=== PATIENT | male | born 1945 | race African-American/Black ===

== ENCOUNTER 2017-02-19 10:15 | Inpatient (IN) ==
[2017-02-19] MEDS ORDERED: PROPOFOL 200 MG/20 ML VIAL IV STA (10:20)
[2017-02-19] MEDS ORDERED: PROPOFOL 1,000 MG/100 ML BOTTLE IV ONE (10:21)
[2017-02-19] MEDS ORDERED: methylPREDNISolone SOD SUC 125 MG/2 ML VIAL IV STA (10:40)
--- NOTE | 2017-02-19 10:41 | Emergency Department Note ---
Pedro Jo Kasabria, am scribing for, and in the presence of, Fantasma Mittal MD 10 :31. Daxa Jo James D, MD, personally performed the services described in this documentation, ascribed by Bryant Vasquez in my presence, and it is both accurate and complete . Arrival - Arrival Chief Complaint: Shortness of Breath Stated Complaint: RESPIRATORY DISTRESS ED Nursing Triage Note: REPORTS RESPIRATORY DISTRESS AT HOME AND BECAME UNRESPONSIVE WHEN EMS ARRIVED. PT WITH HX OF ASTHMA. PT WAS INTUBATED AT [facility] Mode of Arrival: Stretcher Limitations: No Limitations Source: Patient, RN Notes Reviewed Time Seen by Provider: 02/19/17 10:20 - History of Present Illness HPI Narrative: This is a 71 y/o black male presenting to the ED s/p respiratory distress that onset while at home. EMS states they found the pt on his front porch unresponsive. Pt has a PMHx of asthma. He was intubated at [facility]. HPI is limited due to endotracheal tube. Consistency: constant Severity: moderate Allergies/Adverse Reactions: Allergies Allergy/AdvReac Type Severity Reaction Status Date / Time No Known Allergies Allergy Verified 01/18/16 10:14 Home Medications: Home Medications Medication Instructions Recorded Confirmed Type Aspirin [Ecotrin] 81 mg PO DAILY 12/19/15 12/12/16 History Etodolac 300 mg PO BID PRN 12/19/15 12/18/16 History Latanoprost [Latanoprost 0.005 % 1 drop BOTH EYES BEDTIME 12/19/15 12/12/16 History Oph Soln] Lisinopril 40 mg PO DAILY 12/19/15 12/12/16 History Meclizine [Antivert] 25 mg PO DAILY 12/19/15 12/12/16 History Metoprolol Succinate 25 mg PO DAILY 12/19/15 12/12/16 History Pioglitazone HCl [Actos] 30 mg PO DAILY 12/19/15 12/12/16 History clonazePAM [Clonazepam] 0.5 mg PO BID 12/19/15 12/12/16 History hydroCHLOROthiazide 25 mg PO DAILY 12/19/15 12/18/16 History [Hydrochlorothiazide] metFORMIN [Glucophage] 500 mg PO BID W/MEALS 12/19/15 12/12/16 History Tramadol HCl [Tramadol Tab] 50 mg PO Q6H PRN 01/18/16 12/18/16 History Alfuzosin [Uroxatral] 10 mg PO DAILY 12/12/16 12/12/16 History amLODIPine [Norvasc] 10 mg PO DAILY 12/12/16 12/12/16 History glipiZIDE [Glipizide] 10 mg PO BID 12/12/16 12/12/16 History Albuterol Neb [Proventil Neb] 1.25 mg RESP TX Q4H PRN 12/18/16 12/18/16 History Esomeprazole Magnesium [Nexium] 40 mg PO DAILY 12/18/16 12/18/16 History Review of System - Review of System ROS unobtainable: due to endotracheal tube (limited ) 12 point system: reviewed and no additional remarkable complaints except as stated - Review of System Constitutional: Absent: fever Respiratory: Absent: cough Gastrointestinal: Absent: vomiting, diarrhea Skin: Absent: rash Allergic/Immunologic: Absent: facial swelling Medical,Surgical,& Family Hx - Medical History Cardio: History of: Cardiac Dysrhythmia (tachycardia), Hypertension No history of: [place] Psychological: History of: Anxiety Disorders Neurology: History of: Cerebrovascular Accident (2016), Peripheral Neuropathy, Vertigo No history of: Seizures HEENT: History of: Eye Problem (glasses) Endocrine: History of: Diabetes Mellitus (NIDDM) No history of: Thyroid Disorder Respiratory: History of: Asthma, COPD No history of: Obstructive Sleep Apnea Genitourinary: History of: Bladder Problem (freq), Prostate Problems (ca with radiation 2002) No history of: Kidney Stones Gastrointestinal: History of: GERD, Hemorrhoids No history of: Polyps Musculoskeletal: History of: Musculoskeletal Problems (arthritis) Hematology: History of: Clotting Problems (blood clot in right leg) No history of: Blood Transfusion Reaction Other: History of: Cancer (prostate 2002) No history of: Anesthesia Reactions - Surgical History Cardiac Surgeries: Patient Denies: Cardiac Catheterization HEENT Surgeries: Patient denies: Tonsilectomy & Adenoidectomy Abdominal Surgeries: Surgical HX of: Cholecystectomy, Colonoscopy, EGD Patient denies: Appendectomy, Hernia Repair Reproductive Surgeries: Patient denies;: Prostate Surgery Orthopedic Surgeries: Patient denies;: Orthopedic Surgery - Family History Family History: Reports;: Family Cancer (mother-unknown, father-unknown) - Social History Smoking Status: Unknown if ever smoked Frequency of Alcohol Use: Unknown Type of Drug Use: Unknown Exam Vital Signs: Vital Signs Temperature 97.0 F L 02/19/17 10:16 Pulse Rate 123 H 02/19/17 10:16 Respiratory Rate 19 02/19/17 10:16 Blood Pressure 156/79 02/19/17 10:16 O2 Sat by Pulse Oximetry 100 02/19/17 10:16 - General General appearance: in distress (intubated; endotracheal tube ) - Head Head exam: Present: atraumatic, normocephalic, normal inspection - Eye Eye exam: Present: normal appearance, PERRL, EOMI - ENT ENT exam: Present: normal exam, normal oropharynx, mucous membranes moist, TM's normal bilaterally, normal external ear exam - Neck Neck exam: Present: normal inspection, full ROM, trachea midline. Absent: tenderness - Chest Chest inspection: Present: normal inspection, symmetric chest wall rise. Absent : tenderness - Respiratory Respiratory exam: Present: wheezes (expiratory bilaterally ). Absent: normal lung sounds bilaterally - Cardiovascular Cardiovascular exam: Present: regular rate, normal rhythm, normal heart sounds - Abdominal Exam Abdominal exam: Present: soft, normal bowel sounds. Absent: distention, tenderness - Extremities Exam Extremities exam: Present: normal inspection, full ROM, normal capillary refill. Absent: tenderness, pedal edema, calf tenderness - Back Exam Back exam: Present: normal inspection, full ROM. Absent: tenderness - Neurological Exam Neurological exam: Present: CN II-XII intact, reflexes normal. Absent: alert, oriented X3 - Psychiatric Psychiatric exam: Present: other - Skin Skin exam: Present: warm, dry, intact, normal color Course Course Narrative: Vent sedation and vent orders along with vent management begun in the emergency department. - Consultations Consultation #1: Discussed with hospitalist. Patient will be admitted to the ICU. Time: 10:39 Results - Labs Lab Results: I have reviewed the patients labs Labs: Lab performed at [facility] and reviewed by me: Chemistry: Sodium 149, potassium 4.7, chloride 109, CO2 28, BUN 17, creatinine 1.7, glucose 283 BNP 22 CBC: WBCs 13,400, hemoglobin 13.9, hematocrit 43.6, platelet count 136, 000 PT 9.6, PTT 27.0 ABG performed at [facility]: PH 7.017, PCO2 97, PO2 411.7, O2 sat 99.9% - EKG EKG results: interpreted by ERMD - Impressions EKG: Sinus tachycardia with a rate of 111, occasional PVCs, normal axis, nonspecific ST-T wave changes. - Diagnostic Findings Procedure: Chest x-ray: image reviewed by me (Endotracheal tube in position above the jose luis. No infiltrates, no pleural effusions.) Disposition Clinical Impression: Status asthmaticus, Acute respiratory failure, Diabetes mellitus Disposition: Still a Patient Condition: Critical Time of Disposition: 10:40
--- NOTE | 2017-02-19 10:42 | XRay Report ---
XR chest 1V portable Indication: Status asthmaticus Comparison: None Technique: Single frontal view of the chest Findings: Endotracheal tube tip approximately 3.7 cm above the jose luis. Heart size appears within normal limits. Minimal scattered linear perihilar atelectasis. No focal consolidation, pleural effusion, or pneumothorax. Osseous and surrounding soft tissue structures demonstrate no acute abnormality. IMPRESSION: Minimal scattered linear perihilar atelectasis. PROCEDURE INTERPRETED AT [facility] DEPARTMENT OF RADIOLOGY Final Report Signed by: Dr Sunil Wilkins
[2017-02-19] MEDS: PROPOFOL 1,000 MG/100 ML BOTTLE IV SCH ×5 (11:08→23:46)
[2017-02-19 11:46] LABS: ABG Base Excess -1.3 MMOL/L (-2.5-2.5); ABG HCO3 23.4 MMOL/L (20-26); ABG Oxygen Saturation 99.5 % (95-100); ABG PCO2 48.8 MM HG (35-48); ABG PH 7.324 (7.35-7.45); ABG TCO2 22.4 MMOL/L (23-27)
--- NOTE | 2017-02-19 11:53 | Hospitalist History & Physical ---
<Otis Porras - Last Filed: 02/19/17 12:49> Assessment and Plan - Time spent with patient Time spent with patient: Greater than 30 minutes (1) Acute respiratory failure Status: Acute Assessment and plan: Patient intubated in [facility]. Sedated with Propofol. Respiratory acidosis. Admit to ICU. Maintain mechanical ventilation and sedation. Consult pulmonology. Repeat CBC, BMP, ABGs in a.m. Current Visit: Yes (2) Hypertension Status: Acute Assessment and plan: Chronic. is bringing home meds for reconciliation. Will continue home meds once reviewed and reconciliation is complete. Monitor BP. Current Visit: Yes (3) Diabetes mellitus Status: Acute Assessment and plan: Elevated serum glucose per extra facility records. Patient will be admitted to the ICU for close monitoring. Accu-Cheks ACHS. Sliding scale insulin per protocol. Hemoglobin A1c in a.m. Lipid panel. Current Visit: Yes (4) COPD (chronic obstructive pulmonary disease) Status: Acute Current Visit: Yes (5) Hyperlipidemia Status: Acute Current Visit: Yes (6) History of CVA (cerebrovascular accident) Status: Acute Assessment and plan: Patient's reports history of CVA in June 2015 which affected the right side. She reports no residual deficiencies. Current Visit: Yes History of Present Illness Chief complaint: Acute Respiratory Failure History of present illness: Mr. Morse is a 71 year old male with a past medical history significant COPD, diabetes mellitus, hypertension, hyperlipidemia, history of CV who presents to the ED as a transfer from [facility] for further evaluation of acute respiratory distress since this morning. On exam, patient is intubated and mildly sedated with propofol. Patient's is at bedside and provided most of the history. She reports that the patient [facility] when he began gasping for air while sitting on the couch. She stated that she questioned him but he never responded, so she called EMS. When EMS arrived on the scene, the patient was awake but unresponsive. He was taken to the [facility] and giving breathing treatments on the way. At [facility], the patient was found to be in respiratory distress, intubated and sent to [facility] for further evaluation. The patient's reports that the patient has not had any of his medications today. The patient is intubated and sedated, so a complete ROS is not possible. Patient's blood gases on admission are: pH 7.324, pCO2 48.8, pO2 276, HCO3 23.4. External facility records are scanned into the system. After discussion with Dr. Mittal and Dr. Harrell, it was decided that the patient be admitted to the ICU for further evaluation and treatment. The patient is a full code. Home Medications Medication Instructions Recorded Confirmed Type Metoprolol Succinate 25 mg PO BEDTIME 12/19/15 02/19/17 History Pioglitazone HCl [Actos] 30 mg PO DAILY 12/19/15 02/19/17 History clonazePAM [Clonazepam] 0.5 mg PO BID PRN 12/19/15 02/19/17 History metFORMIN [Glucophage] 1,000 mg PO BID 12/19/15 02/19/17 History Alfuzosin [Uroxatral] 10 mg PO BEDTIME 12/12/16 02/19/17 History amLODIPine [Norvasc] 10 mg PO DAILY 12/12/16 02/19/17 History glipiZIDE [Glipizide] 10 mg PO BID 12/12/16 02/19/17 History Aspirin EC Tab 81 mg PO DAILY 02/19/17 02/19/17 History Omeprazole [Prilosec] 20 mg PO DAILY 02/19/17 02/19/17 History Quetiapine Fumarate 100 mg PO BEDTIME 02/19/17 02/19/17 History Allergies Allergy/AdvReac Type Severity Reaction Status Date / Time No Known Allergies Allergy Verified 01/18/16 10:14 Medical,Surgical,& Family Hx - Medical History Cardio: History of: Cardiac Dysrhythmia (tachycardia), Hypertension No history of: [place] Psychological: History of: Anxiety Disorders Neurology: History of: Cerebrovascular Accident (2016), Peripheral Neuropathy, Vertigo No history of: Seizures HEENT: History of: Eye Problem (glasses) Endocrine: History of: Diabetes Mellitus (NIDDM) No history of: Thyroid Disorder Respiratory: History of: Asthma, COPD No history of: Obstructive Sleep Apnea Genitourinary: History of: Bladder Problem (freq), Prostate Problems (ca with radiation 2002) No history of: Kidney Stones Gastrointestinal: History of: GERD, Hemorrhoids No history of: Polyps Musculoskeletal: History of: Musculoskeletal Problems (arthritis) Hematology: History of: Clotting Problems (blood clot in right leg) No history of: Blood Transfusion Reaction Other: History of: Cancer (prostate 2002) No history of: Anesthesia Reactions - Surgical History Cardiac Surgeries: Patient Denies: Cardiac Catheterization HEENT Surgeries: Patient denies: Tonsilectomy & Adenoidectomy Abdominal Surgeries: Surgical HX of: Cholecystectomy, Colonoscopy, EGD Patient denies: Appendectomy, Hernia Repair Reproductive Surgeries: Patient denies;: Prostate Surgery Orthopedic Surgeries: Patient denies;: Orthopedic Surgery - Family History Family History: Reports;: Family Cancer (mother-unknown, father-unknown) - Social History Smoking Status: Unknown if ever smoked Frequency of Alcohol Use: Unknown Type of Drug Use: Unknown ROS unobtainable: due to endotracheal tube Exam - Constitutional Vitals: Period Temp Pulse Resp BP Sys/Pierce Pulse Ox Last 24 Hr 97.0 F 123 19 156/79 100 Exam: General appearance: obese, intubated, sedated - Head Head exam: Present: normocephalic, atraumatic - Eye Eye exam: Present: EOMI. Absent: conjunctival injection, nystagmus Pupils: Present: THIEN, normal accommodation - ENT ENT exam: Present: normal exam, normal external ear exam - Neck Neck exam: Present: normal inspection. Absent: lymphadenopathy, tenderness, thyromegaly - Respiratory Respiratory exam: Present: clear to auscultation bilaterally. Absent: rales, rhonchi, wheezes - Cardiovascular Cardiovascular exam: Present: regular rate and rhythm. Absent: carotid bruit, gallop, rubs - GI/Abdominal GI/Abdominal exam: Present: normal bowel sounds. Absent: ascites, distended, mass - Extremities Exam Extremities exam: Present: normal inspection, normal capillary refill. Absent: edema - Back Exam Back exam: unable to assess due to intubation and sedation - Neurological Exam Neurological exam: unable to assess due to intubation and sedation - Psychiatric Psychiatric exam: unable to assess due to intubation and sedation - Skin Skin exam: Present: normal color, warm, dry Results - Labs Labs: External Facility Records from [facility] General: WBC 13.4 hgb 13.9 Hct 43.6 Plt 136 Troponin 0.025 Serum Glu 283 BUN 17 Cr 1.7 Ca 9.2 Na 149 K 4.7 Cl 109 <Ese Harrell - Last Filed: 02/19/17 13:33> History of Present Illness History of present illness: Mr. Morse is a 71 year old male with a history of COPD, HTN and possible CKD stage 3 who presented to the outside hospital with a chief complaint of decreased level of consciousness and shortness of breath. My history comes from the staff, and outside records as patient is currently intubated and sedated and is unable to provide any history. Family is currently unavailable for discussion. Patient was last seen normal the night previous to presentation. On the morning of admission he was found to be increasingly short of breath and gasping for air. When his called out to him he was unresponsive so she called 911. EMS administered nebulizer treatments and oxygen and upon arrival to the outside hospital was noted to have severe hypercarbic respiratory failure with an ABG showing a pH of 7.017, CO2 of 97, and O2 of 411 on 15 L. His blood pressure at that time was noted to be 220/114 with a heart rate of 140 respirations of 8 and a temp of 97.7. Patient was then intubated after receiving Versed 8 mg IV, Zemeron 50 mg IV 1, Solu-Medrol 250 mg IV 1, and epinephrine 0.3 mg IV 1. Arnold catheter was placed as well as an NG tube. Patient was started on a Versed drip. Chest x-ray reportedly was within normal limits throughout the actual report and imaging is unavailable for my review. 12-lead EKG showed sinus tachycardia at approximately [address] depression in leads I, II, V1, V4 through V6 and evidence of LVH. There is no available EKG for comparison. Labs showed a sodium of 149, potassium of 4.7, chloride of 109, bicarb of 28, BUN and creatinine of 17 and 1.7, calcium of 9.2, glucose of 283, and magnesium of 2.2. CPK was 204, CK-MB was 2.5, myoglobin of 73. Troponin was reportedly done but I do not see results accompanying the chart. CBC showed white count of 13.4 , with a hemoglobin and hematocrit of 13.9 and 43.6, and platelet count of 136. MCV was 103, RDW is 13.9. Differential on the CBC was unremarkable. Coags were within normal limits. The BNP was 22. Patient was transferred to [facility] for evaluation by pulmonology and vent management. At the hospital, repeat ABGs show pH 7.324, pCO2 48.8, pO2 276, HCO3 23.4. We are asked to admit for further evaluation and treatment. A 10 point review of systems cannot be reviewed with the patient as he is currently intubated and sedated. PMH: Diabetes mellitus type 2, glaucoma, hypertension, anxiety, prostate cancer status post radiation, hemorrhoids, GERD, stroke, right leg DVT, dyslipidemia. ? CKD 3 Past surgical history: Cholecystectomy MEDS: Reviewed Allergies: No known drug allergies Family history: Cancer Social history: It is unknown if the patient has a history of tobacco, alcohol, or illicit drug use. He is and lives with his . He is a full code. P.E. Vital signs reviewed. GEN: Intubated and sedated, NAD HEENT: PERRL, sclera clear, pale conjunctiva, ETT in place so difficult to assess full O/P, dry mucus membranes Neck: Trachea is midline. No lymphadenopathy or thyromegaly appreciated. No JVD CV: Regular rate and rhythm, normal S1-S2. No obvious murmurs rubs or gallops. Lungs: Diminished bilaterally mostly clear with occasional rhonchi. Nonlabored breathing noted. Abdomen: Soft, nondistended, hypoactive bowel sounds. Obese abdomen so difficult to assess for hepatosplenomegaly or masses but none were appreciated. Extremities: Warm and well perfused. No clubbing cyanosis or edema appreciated Neuro: Unable to fully assess given patient is sedated on the vent. Outside records reviewed. Assessment and plan: #1. Acute hypoxic and hypercarbic respiratory failure suspected due to acute COPD exacerbation. Rule out ACS, rule out PE vs. other #2. Accelerated hypertension-blood pressure now much better controlled. #3. Diabetes mellitus type 2 control unknown. #4. Hypernatremia and hyperchloremia likely due to dehydration #5. Elevated creatinine-suspect chronic kidney disease stage III #6. Leukocytosis #7. History of DVT Admit to the hospitalist service to the ICU this patient is currently critical requiring vent support. Consult pulmonology for vent management Start IV antibiotics Panculture with blood, respiratory, and urine cultures. Check UA Bronchodilators, pulmonary toileting, IV steroids Placed on insulin sliding scale with Accu-Cheks every 6h. Check hemoglobin A1c Check urine drug screen and TSH Check d-dimer Check repeat chest x-ray Check a repeat EKG, and serial cardiac markers Recheck labs in the a.m. Hydralazine 10 mg IV every 6 hours as needed for systolic blood pressure greater than 170 or diastolic blood pressure of 110 or greater *Protonix IV since patient is on high-dose steroids to prevent gastritis SCDs for DVT prophylaxis at this time It is taking me 41 minutes to evaluate and treat this patient and review old records. Discussed with nurse practitioner and with nurse. All questions answered. Exam - Constitutional Vitals: Period Temp Pulse Resp BP Sys/Pierce Pulse Ox Last 24 Hr 94-97 12-14 100-100
[2017-02-19] MEDS: ALBUTEROL 2.5 MG/3 ML NEB RESP TX SCH ×4 (12:01→23:08)
[2017-02-19 12:50] LABS: Amorphous Crystals,Urine Occasional /HPF (Few); Apearance,Urine CLEAR (Clear); Bacteria,Urine Occasional /HPF (Few); Bilirubin,Urine Negative (Negative); Blood, Urine Small mg/dL (Negative); Glucose,Urine (UA) >=500 mg/dL (Negative); Ketones,Urine Negative (Negative); Mucus,Urine Occasional /LPF (Occasional); Nitrite,Urine Negative (Negative); Protein,Urine 30 MG/DL; RBC,Urine 2 /HPF (0-4); Squamous Epithelial Cell,Urine Occasional /HPF (0-10); Urine Color Straw (Yellow); Urine Specific Gravity 1.012 (1.001-1.035); Urine Urobilinogen < 2.0 EU/DL (0.2-1.0); WBC,Urine 2 /HPF (0-6)
[2017-02-19] MEDS ORDERED: DEXTROSE 50% 25 GM/50 ML VIAL IV PRN (13:03)
[2017-02-19] MEDS ORDERED: GLUCAGON 1 MG VIAL IM PRN (13:03)
[2017-02-19] MEDS ORDERED: hydrALAZINE 20 MG/1 ML VIAL IM PRN (13:07)
--- NOTE | 2017-02-19 13:09 | EKG Report ---
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
--- NOTE | 2017-02-19 13:25 | XRay Report ---
XR chest 1V portable Indication: SOB, intubated Comparison: Chest x-ray dated February 19, 2017 at 10:32 AM Technique: Single frontal view of the chest Findings: Endotracheal tube stable in positioning. Interval development of essential complete atelectasis of the right upper lobe. Mucous plugging should be considered. Interval increased mild left basilar atelectasis. Visualized osseous and surrounding soft tissue structures appear grossly unchanged. IMPRESSION: As above. PROCEDURE INTERPRETED AT [facility] DEPARTMENT OF RADIOLOGY Final Report Signed by: Dr Sunil Wilkins
[2017-02-19] MEDS: methylPREDNISolone SOD SUC 125 MG/2 ML VIAL IV SCH ×3 (13:40→23:55)
[2017-02-19] MEDS: cefTRIAXone 1,000 MG in SODIUM CHLORIDE 0.9% 100 ML IV SCH (13:40)
[2017-02-19] MEDS: DEXTROSE 5% NACL 0.45% 1,000 ML IV SCH (14:17)
[2017-02-19] MEDS: PANTOPRAZOLE 40 MG VIAL IV SCH (14:28)
[2017-02-19 14:29] LABS: Risk Ratio 3.14; VLDL CHOLESTEROL 10.6 MG/DL
[2017-02-19 14:30] LABS: CKMB % 3.4 %
[2017-02-19 15:02] LABS: Troponin I Only 1.49 NG/ML (0.00-0.045)
--- NOTE | 2017-02-19 16:35 | Cardiology Consult Note ---
<Carri Escobedo E - Last Filed: 02/19/17 16:10> Assessment and Plan - Time spent with patient Time spent with patient: Greater than 30 minutes (1) Morbid obesity Status: Chronic Assessment and plan: SEE PLAN OF CARE LISTED BELOW Current Visit: Yes (2) Sleep disorder Status: Chronic Assessment and plan: SEE PLAN OF CARE LISTED BELOW Current Visit: Yes (3) Elevated troponin Status: Acute Assessment and plan: SEE PLAN OF CARE LISTED BELOW Current Visit: Yes (4) Renal insufficiency Status: Acute Assessment and plan: SEE PLAN OF CARE LISTED BELOW Current Visit: Yes (5) Acute respiratory failure Status: Acute Assessment and plan: SEE PLAN OF CARE LISTED BELOW Current Visit: Yes (6) COPD (chronic obstructive pulmonary disease) Status: Chronic Assessment and plan: SEE PLAN OF CARE LISTED BELOW Current Visit: Yes (7) Diabetes mellitus Status: Chronic Assessment and plan: SEE PLAN OF CARE LISTED BELOW Current Visit: Yes (8) History of CVA (cerebrovascular accident) Status: Chronic Assessment and plan: SEE PLAN OF CARE LISTED BELOW Current Visit: Yes (9) Hyperlipidemia Status: Chronic Assessment and plan: SEE PLAN OF CARE LISTED BELOW Current Visit: Yes (10) Hypertension Status: Chronic Assessment and plan: SEE PLAN OF CARE LISTED BELOW Current Visit: Yes History of Present Illness - Data of Consult Patient: new to practice Consult date: 02/19/17 Requesting Physician: Ese Harrell - Consult Narrative Reason for consult: Elevated troponin History of present illness: SENIOR VALIDATION ENGINEER: DR. VELASCO ([facility]) PCP: DR. CASTRO Patient is being seen in the ICU. The majority of this information is taken from medical staff and medical records as the patient is intubated without family at the bedside. Mr. Morse, 71BM, without a known prior cardiac history. Risk factors include : Diabetes, hypertension, dyslipidemia, CVA (June 2015 affecting right side) , and obesity. History of COPD and asthma. Patient was received in transfer from [facility] for further evaluation of acute respiratory distress. It is reported this morning, patient was preparing [facility] when he began gasping for air while sitting on the couch. She questioned him but he never responded. She called EMS. When EMS arrived, the patient was awake but unresponsive. In route to [facility] ER, he was given breathing treatments. He remained in respiratory distress upon arrival requiring intubation. I have reviewed labs from [facility] and first set of cardiac biomarkers were negative, d-dimer negative, EKG revealed a sinus tachycardia with anterolateral ST depression. The patient arrived to our ICU, cardiac biomarkers were repeated. Troponin noted to be 1.49, CK-MB 8.2 and CK 3.4. Creatinine 1.7. Repeat EKG reveals resolution of the ST depression. Chest x-ray reveals complete atelectasis of the right upper lobe. Mucus plugging is suspected. Pulmonology has been consulted. Patient appears comfortable on the ventilator. He does awake and shakes his head when he is at if he is having chest pain. At this point, I will give him chewable full-strength aspirin, 100 mg of Lovenox subcu (creatinine is 1.7) as he did not receive these prior to arrival. Continue cycle his cardiac biomarkers. Incorporate beta blockade and lipid-lowering agent today. He is not on an JULIO inhibitor and I suspect this is been avoided for fear of worsening his (suspected) chronic renal insufficiency. Echocardiogram has been ordered. Will further discuss with Dr. Velasco and await additional recommendations. ASSESSMENT/PLAN: 1. ACUTE RESPIRATORY FAILURE - currently intubated but follows commands appropriately. After reviewing chest x-ray, it is noted that he has complete atelectasis of the right upper lobe with mucous plugging suspected. This may be contributing to, if not the etiology of, his acute respiratory distress. Pulmonology has been consulted. Venous ultrasound bilateral lower extremities. 2. ELEVATED TROPONIN - initial set of cardiac biomarkers negative. Repeat upon arrival reveals elevated troponin. We will continue to follow these closely. He will be given aspirin, Lovenox, beta blockade and lipid-lowering agent. Eventually, patient may require cardiac catheterization in his future. 3. HYPERTENSION - will adjust medications accordingly during hospital stay 4. DYSLIPIDEMIA - continue atorvastatin. Fasting lipid profile tomorrow morning 5. DIABETES - holding metformin. Sliding scale insulin 6. RENAL INSUFFICIENCY - suspect this is chronic though I have no prior records to full from. Stage III. Avoiding JULIO inhibitor for fear of worsening condition 7. MORBID OBESITY - dietary counseling prior to discharge 8. SUSPECTED SLEEP APNEA - will need outpatient sleep study eventually. Given his habitus, I strongly suspect he has obstructive sleep apnea 9. HISTORY OF CVA - continue current plan of care CC: Ese Harrell MD - Home Medications and Allergies Home Medications: Home Medications Medication Instructions Recorded Confirmed Type Metoprolol Succinate 25 mg PO BEDTIME 12/19/15 02/19/17 History Pioglitazone HCl [Actos] 30 mg PO DAILY 12/19/15 02/19/17 History clonazePAM [Clonazepam] 0.5 mg PO BID PRN 12/19/15 02/19/17 History metFORMIN [Glucophage] 1,000 mg PO BID 12/19/15 02/19/17 History Alfuzosin [Uroxatral] 10 mg PO BEDTIME 12/12/16 02/19/17 History amLODIPine [Norvasc] 10 mg PO DAILY 12/12/16 02/19/17 History glipiZIDE [Glipizide] 10 mg PO BID 12/12/16 02/19/17 History Aspirin EC Tab 81 mg PO DAILY 02/19/17 02/19/17 History Omeprazole [Prilosec] 20 mg PO DAILY 02/19/17 02/19/17 History Quetiapine Fumarate 100 mg PO BEDTIME 02/19/17 02/19/17 History Allergies/Adverse Reactions: Allergies Allergy/AdvReac Type Severity Reaction Status Date / Time No Known Allergies Allergy Verified 01/18/16 10:14 ROS unobtainable: due to endotracheal tube Medical,Surgical,& Family Hx - Medical History Cardio: History of: Hypertension No history of: MS Psychological: History of: Anxiety Disorders Neurology: History of: Cerebrovascular Accident (2016), Peripheral Neuropathy, Vertigo No history of: Seizures HEENT: History of: Eye Problem (glasses) Endocrine: History of: Diabetes Mellitus (NIDDM) No history of: Thyroid Disorder Respiratory: History of: Asthma, COPD No history of: Obstructive Sleep Apnea Genitourinary: History of: Bladder Problem (freq), Prostate Problems (ca with radiation 2002) No history of: Kidney Stones Gastrointestinal: History of: GERD, Hemorrhoids No history of: Polyps Musculoskeletal: History of: Musculoskeletal Problems (arthritis) Hematology: History of: Clotting Problems (blood clot in right leg) No history of: Blood Transfusion Reaction Other: History of: Cancer (prostate 2002) No history of: Anesthesia Reactions - Surgical History Cardiac Surgeries: Patient Denies: Cardiac Catheterization HEENT Surgeries: Patient denies: Tonsilectomy & Adenoidectomy Abdominal Surgeries: Surgical HX of: Cholecystectomy, Colonoscopy, EGD Patient denies: Appendectomy, Hernia Repair Reproductive Surgeries: Patient denies;: Prostate Surgery Orthopedic Surgeries: Patient denies;: Orthopedic Surgery - Family History Family History: Reports;: Family Cancer (mother-unknown, father-unknown), Family Diabetes (SISTER), Family Hypertension (MOTHER AND FATHER) - Social History Smoking Status: Unknown if ever smoked Frequency of Alcohol Use: Unknown Type of Drug Use: Unknown Marital Status: Lives With:: Spouse Functional capacity: independent ambulation Physical Examination Vital Signs Temp Pulse Resp BP Pulse Ox 97.0 F L 123 H 19 156/79 100 02/19/17 10:16 02/19/17 10:16 02/19/17 10:16 02/19/17 10:16 02/19/17 10:16 General: [Intubated, sedated but wakes and follows commands. ] [Appears comfortable.] HEENT: [Normocephalic, atraumatic. Mucous membranes moist. No jaundice noted. Conjunctiva moist and clear, sclerae anicteric] Neck: Difficult to assess for JVD due to habitus. No obvious JVD is noted, no thyromegaly or lymphadenopathy noted. No carotid bruit appreciated Cardiac: [Regular rate and rhythm.] [No obvious murmur rub or gallop.] Lungs: [Decreased sounds noted to the right posterior lung, rhonchi throughout. Symmetrical chest wall movements noted. Abdomen: Soft, bowel sounds normoactive. Nontender and nondistended. No abdominal bruit or thrill noted. No masses noted. Musculoskeletal: No fluid collection. Decreased range of motion is noted. Extremities: No clubbing, cyanosis noted. [ No edema noted.] Upper extremity pulses 2+. Lower extremity pulses 2+. Capillary refill less than 3 seconds. Skin: No unusual lesions or rashes. No skin breakdown appreciated. Neuro: Awake easily and follows commands. No essential tremor is appreciated. Result/EKG - Labs Lab Results: I have reviewed the past 24 hour labs Labs: Laboratory Results - last 24 hr 02/19/17 02/19/17 02/19/17 11:35 12:13 13:25 D-Dimer, Quantitative ABG pH 7.324 L ABG pCO2 48.8 H ABG pO2 276.0 H ABG HCO3 23.4 ABG Total CO2 22.4 L ABG O2 Saturation 99.5 ABG Base Excess -1.3 Total Creatine Kinase CK-MB (CK-2) CK and CKMB Interp Troponin I Triglycerides 53 Cholesterol 135 LDL Cholesterol 81.0 VLDL Cholesterol 10.6 HDL Cholesterol 43 Heart Disease Risk Ratio 3.14 Urine Color Straw Urine Appearance Clear Urine pH 6.0 Ur Specific [place] 1.012 Urine Protein 30 Urine Glucose (UA) >=500 Urine Ketones Negative Urine Blood Small Urine Nitrate Negative Urine Bilirubin Negative Urine Urobilinogen < 2.0 H Urine Leukocytes Negative Urine RBC 2 Urine WBC 2 Ur Squamous Epith Cells Occasional Amorphous Crystals Occasional Urine Bacteria Occasional Urine Mucus Occasional Ur Culture Indicated? Not indicated 02/19/17 02/19/17 13:25 13:25 D-Dimer, Quantitative 0.7 ABG pH ABG pCO2 ABG pO2 ABG HCO3 ABG Total CO2 ABG O2 Saturation ABG Base Excess Total Creatine Kinase 239 CK-MB (CK-2) 8.2 H CK and CKMB Interp 3.4 Troponin I 1.490 H Triglycerides Cholesterol LDL Cholesterol VLDL Cholesterol HDL Cholesterol Heart Disease Risk Ratio Urine Color Urine Appearance Urine pH Ur Specific [place] Urine Protein Urine Glucose (UA) Urine Ketones Urine Blood Urine Nitrate Urine Bilirubin Urine Urobilinogen Urine Leukocytes Urine RBC Urine WBC Ur Squamous Epith Cells Amorphous Crystals Urine Bacteria Urine Mucus Ur Culture Indicated? - Diagnostic Findings Procedure: Chest x-ray: report reviewed by me - EKG EKG results: interpreted by me EKG shows: tachycardia, sinus rhythm <Karol Hendrix - Last Filed: 02/19/17 21:27> History of Present Illness - Consult Narrative History of present illness: I have personally interviewed and evaluated the patient, reviewed the chart and discussed medical decision-making with Practitioner Fanny. I have read this note and agree with her documentation here in. The patient presented with severe dyspnea and unresponsiveness, was found to be hypoxemic and with a severe respiratory acidemia. He was extremely hypertensive in his extremis as well. Initial ECG had some baseline artifact but there could have possibly been some ischemia in the setting of this hypoxemia and tachycardia with severe hypertension. This ECG has since normalized. BNP was low. Chest x-ray is abnormal. The cardiac biomarkers are very mildly abnormal in the setting of underlying renal insufficiency. In summary, the patient appears to have had a primary pulmonary event with some possible secondary cardiac ischemia and strain. We will continue to cycle his cardiac biomarkers and follow-up on the echocardiogram. I would recommend treating his acute pulmonary issue and stabilizing him, and at some point prior to discharge he may benefit from cardiac catheterization depending on his clinical evolution. CC: Ese Harrell MD Physical Examination Vital Signs Temp Pulse Resp BP Pulse Ox 97.0 F L 123 H 19 156/79 100 02/19/17 10:16 02/19/17 10:16 02/19/17 10:16 02/19/17 10:16 02/19/17 10:16 Result/EKG - Labs Labs: Laboratory Results - last 24 hr 02/19/17 02/19/17 02/19/17 11:35 12:13 13:25 D-Dimer, Quantitative ABG pH 7.324 L ABG pCO2 48.8 H ABG pO2 276.0 H ABG HCO3 23.4 ABG Total CO2 22.4 L ABG O2 Saturation 99.5 ABG Base Excess -1.3 POC Glucose Total Creatine Kinase CK-MB (CK-2) CK and CKMB Interp Troponin I Triglycerides 53 Cholesterol 135 LDL Cholesterol 81.0 VLDL Cholesterol 10.6 HDL Cholesterol 43 Heart Disease Risk Ratio 3.14 Urine Color Straw Urine Appearance Clear Urine pH 6.0 Ur Specific [place] 1.012 Urine Protein 30 Urine Glucose (UA) >=500 Urine Ketones Negative Urine Blood Small Urine Nitrate Negative Urine Bilirubin Negative Urine Urobilinogen < 2.0 H Urine Leukocytes Negative Urine RBC 2 Urine WBC 2 Ur Squamous Epith Cells Occasional Amorphous Crystals Occasional Urine Bacteria Occasional Urine Mucus Occasional Ur Culture Indicated? Not indicated 02/19/17 02/19/17 02/19/17 13:25 13:25 16:54 D-Dimer, Quantitative 0.7 ABG pH ABG pCO2 ABG pO2 ABG HCO3 ABG Total CO2 ABG O2 Saturation ABG Base Excess POC Glucose Total Creatine Kinase 239 245 CK-MB (CK-2) 8.2 H 10.2 H CK and CKMB Interp 3.4 4.2 Troponin I 1.490 H 1.950 H D Triglycerides Cholesterol LDL Cholesterol VLDL Cholesterol HDL Cholesterol Heart Disease Risk Ratio Urine Color Urine Appearance Urine pH Ur Specific [place] Urine Protein Urine Glucose (UA) Urine Ketones Urine Blood Urine Nitrate Urine Bilirubin Urine Urobilinogen Urine Leukocytes Urine RBC Urine WBC Ur Squamous Epith Cells Amorphous Crystals Urine Bacteria Urine Mucus Ur Culture Indicated? 02/19/17 18:03 D-Dimer, Quantitative ABG pH ABG pCO2 ABG pO2 ABG HCO3 ABG Total CO2 ABG O2 Saturation ABG Base Excess POC Glucose 192 H Total Creatine Kinase CK-MB (CK-2) CK and CKMB Interp Troponin I Triglycerides Cholesterol LDL Cholesterol VLDL Cholesterol HDL Cholesterol Heart Disease Risk Ratio Urine Color Urine Appearance Urine pH Ur Specific [place] Urine Protein Urine Glucose (UA) Urine Ketones Urine Blood Urine Nitrate Urine Bilirubin Urine Urobilinogen Urine Leukocytes Urine RBC Urine WBC Ur Squamous Epith Cells Amorphous Crystals Urine Bacteria Urine Mucus Ur Culture Indicated?
[2017-02-19] MEDS: METOPROLOL TARTRATE 25 MG TABLET PO SCH ×2 (16:37→20:44)
[2017-02-19] MEDS: ASPIRIN CHEW 81 MG TABLET PO SCH (16:37)
[2017-02-19] MEDS: ENOXAPARIN 80 MG/0.8 ML SYRINGE SUBCUT SCH (18:10)
[2017-02-19] MEDS: INSULIN REGULAR 100 UNIT/ML SUBCUT SCH (18:10)
[2017-02-19 18:26] LABS: CKMB % 4.2 %
[2017-02-19 18:38] LABS: Troponin I Only 1.95 NG/ML (0.00-0.045)
--- NOTE | 2017-02-19 19:26 | Ultrasound Report ---
US venous doppler LE BI Indication: Edema of the lower extremities. Comparison: None. Technique: Using a transcutaneous probe, grayscale, spectral Doppler, and color Doppler images of the bilateral lower extremity venous structures were captured and stored. Grayscale images prior to and following compression were obtained. Interrogated venous structures include the bilateral common femoral vein, superficial femoral vein (proximal, mid, and distal), and popliteal vein. Findings: There is no evidence of thrombus within the interrogated venous structures. the interrogated venous segments demonstrate presence of both color flow and spectral flow. Impression: 1. No evidence of venous thrombosis. 02/19/2017 7:21 PM PROCEDURE INTERPRETED AT [facility] DEPARTMENT OF RADIOLOGY Final Report Signed by: Dr. Russ Vega
--- NOTE | 2017-02-19 20:13 | Pulmonology Consult Note ---
Assessment and Plan (1) Acute respiratory failure Status: Acute Assessment and plan: Patient apparently had respiratory distress and is now on the ventilator. He reportedly has a history of COPD. He does have some right upper lobe atelectasis. He may need a bronchoscope soon. We will continue present therapy Current Visit: Yes (2) Diabetes mellitus Status: Chronic Assessment and plan: His glucose is 192 earlier. Current Visit: Yes (3) Hypertension Status: Chronic Assessment and plan: Patient has a good blood pressure at present Current Visit: Yes (4) COPD (chronic obstructive pulmonary disease) Status: Chronic Assessment and plan: Patient reportedly has COPD and will continue with bronchodilator therapy. Current Visit: Yes (5) History of CVA (cerebrovascular accident) Status: Chronic Assessment and plan: The patient has a remote history of a CVA but had no residual defects Current Visit: Yes History of Present Illness Chief complaint: Ventilator management History of present illness: Mr. Morse is a 71 year old black male that apparently has a history of having diabetes, hypertension, hyperlipidemia, and a component of COPD presented to [facility] with respiratory distress earlier today. He had to be intubated fairly quickly and was transferred for further treatment. It is unclear whether he takes a lot of respiratory medicines. He has been sedated and is stable on the ventilator. Patient apparently had a CVA with right-sided weakness that resolved. It is unclear how much smoking he has done in the past. He is fairly stable on the ventilator at present. He does have some right upper lobe atelectasis. Home Medications Medication Instructions Recorded Confirmed Type Metoprolol Succinate 25 mg PO BEDTIME 12/19/15 02/19/17 History Pioglitazone HCl [Actos] 30 mg PO DAILY 12/19/15 02/19/17 History clonazePAM [Clonazepam] 0.5 mg PO BID PRN 12/19/15 02/19/17 History metFORMIN [Glucophage] 1,000 mg PO BID 12/19/15 02/19/17 History Alfuzosin [Uroxatral] 10 mg PO BEDTIME 12/12/16 02/19/17 History amLODIPine [Norvasc] 10 mg PO DAILY 12/12/16 02/19/17 History glipiZIDE [Glipizide] 10 mg PO BID 12/12/16 02/19/17 History Aspirin EC Tab 81 mg PO DAILY 02/19/17 02/19/17 History Omeprazole [Prilosec] 20 mg PO DAILY 02/19/17 02/19/17 History Quetiapine Fumarate 100 mg PO BEDTIME 02/19/17 02/19/17 History Allergies Allergy/AdvReac Type Severity Reaction Status Date / Time No Known Allergies Allergy Verified 01/18/16 10:14 ROS unobtainable: due to endotracheal tube (He is sedated on the ventilator at present) Exam (Pulmonay) H&P - Constitutional Vitals: Period Temp Pulse Resp BP Sys/Pierce Pulse Ox Last 24 Hr 96.5 F-97.4 F 69-97 12-18 109-161/62-86 100-100 General appearance: normal weight, no acute distress (He is sedated and comfortable on the ventilator.) - Head Head exam: Present: normal inspection, normocephalic - Eye Eye exam: Present: EOMI. Absent: scleral icterus Pupils: Present: THIEN - ENT ENT exam: Present: normal exam, other (The ET tube is in good position) - Neck Neck exam: Present: normal inspection. Absent: lymphadenopathy, thyromegaly - Respiratory Respiratory exam: Present: rhonchi, other (He has fairly good air movement bilaterally.). Absent: accessory muscle use - Cardiovascular Cardiovascular exam: Present: regular rate and rhythm. Absent: gallop, systolic murmur - GI/Abdominal GI/Abdominal exam: Present: hypoactive bowel sounds, soft. Absent: distended, organomegaly, tenderness - Extremities Exam Extremities exam: Absent: calf tenderness, edema - Neurological Exam Neurological exam: Present: other (Patient is mainly sedated at present) - Skin Skin exam: Present: warm, dry Medical,Surgical,& Family Hx - Medical History Cardio: History of: Cardiac Dysrhythmia (tachycardia), Hypertension No history of: MT Psychological: History of: Anxiety Disorders Neurology: History of: Cerebrovascular Accident (2016), Peripheral Neuropathy, Vertigo No history of: Seizures HEENT: History of: Eye Problem (glasses) Endocrine: History of: Diabetes Mellitus (NIDDM) No history of: Thyroid Disorder Respiratory: History of: Asthma, COPD No history of: Obstructive Sleep Apnea Genitourinary: History of: Bladder Problem (freq), Prostate Problems (ca with radiation 2002) No history of: Kidney Stones Gastrointestinal: History of: GERD, Hemorrhoids No history of: Polyps Musculoskeletal: History of: Musculoskeletal Problems (arthritis) Hematology: History of: Clotting Problems (blood clot in right leg) No history of: Blood Transfusion Reaction Other: History of: Cancer (prostate 2002) No history of: Anesthesia Reactions - Surgical History Cardiac Surgeries: Patient Denies: Cardiac Catheterization HEENT Surgeries: Patient denies: Tonsilectomy & Adenoidectomy Abdominal Surgeries: Surgical HX of: Cholecystectomy, Colonoscopy, EGD Patient denies: Appendectomy, Hernia Repair Reproductive Surgeries: Patient denies;: Prostate Surgery Orthopedic Surgeries: Patient denies;: Orthopedic Surgery - Family History Family History: Reports;: Family Cancer (mother-unknown, father-unknown), Family Diabetes (SISTER), Family Hypertension (MOTHER AND FATHER) - Social History Smoking Status: Unknown if ever smoked Frequency of Alcohol Use: Unknown Type of Drug Use: Unknown Results - Labs Labs: His PO2 is 276 with a PCO2 of 48 and a pH of 7.32 - Diagnostic Findings Procedure: Chest x-ray: image reviewed by me, report reviewed by me (Chest x- ray shows some right upper lobe atelectasis), Ultrasound: report reviewed by me (Venous Dopplers are negative)
[2017-02-19] MEDS: ALFUZOSIN 10 MG TABLET PO SCH (20:44)
[2017-02-19] MEDS: ATORVASTATIN 20 MG TABLET PO SCH (20:44)
[2017-02-19 23:15] LABS: Barbiturates Screen,Urine Negative (Negative); Benzodiazepines Screen,Urine Positive (Negative); Cannabinoid Screen,Urine Negative (Negative); Opiate Screen,Urine Negative (Negative); Phencyclidine Screen,Urine Negative (Negative)
[2017-02-20] MEDS: INSULIN REGULAR 100 UNIT/ML SUBCUT SCH ×5 (00:07→23:50)
[2017-02-20 01:29] LABS: Calcium 8.4 MG/DL (8.5-10.1); Magnesium 1.7 MG/DL (1.8-2.4); Osmolality,Calculated 289.1 MOS/KG (273-304); Risk Ratio 3.04; VLDL CHOLESTEROL 11.4 MG/DL
[2017-02-20 01:37] LABS: Basophils % 0.1 % (0.0-0.8); CKMB % 4.7 %; Hematocrit 37.3 VOL% (42.0-52.0); Hemoglobin 12.3 GM/DL (14.0-18.0); Immature Granulocytes % 1.3 %; Immature Granulocytes Absolute 0.11 #; Lymphocytes # 0.6 10*3/uL (1.4-4.0); Lymphocytes % 6.5 % (21.2-54.2); Mean Corpuscular Hemoglobin 32 PG (27-34); Mean Corpuscular Volume 96.9 FL (87-102); Mean Platelet Volume 12.9 FL (9.6-12.0); Monocytes # 0.2 10*3/uL (0.11-0.8); Monocytes % 2.2 % (1.7-12.7); Neutrophils # 7.8 10*3/uL (1.4-7.4); Neutrophils % 89.9 % (38.7-73.9); Platelet Count 195 T/CUMM (130-400); Red Blood Count 3.85 MC/CUMM (3.8-5.5); Red Cell Distribution Width 13.2 % (9.3-17.3); White Blood Count 8.6 T/CUMM (4-12)
[2017-02-20 01:38] LABS: Troponin I Only 1.38 NG/ML (0.00-0.045)
[2017-02-20 01:41] LABS: Alanine Aminotransferase 27 U/L (16-61); Albumin 3.3 G/DL (3.4-5.0); Alkaline Phosphatase 52 U/L (45-117); Aspartate Amino Transferase 28 U/L (0-37); Bilirubin,Direct < 0.10 MG/DL (0.0-0.20); Bilirubin,Indirect 0.3 MG/DL (0.0-1.0)
[2017-02-20] MEDS: PROPOFOL 1,000 MG/100 ML BOTTLE IV SCH ×8 (01:59→23:37)
[2017-02-20] MEDS: ALBUTEROL 2.5 MG/3 ML NEB RESP TX SCH ×6 (03:28→23:11)
[2017-02-20 03:32] LABS: Allen Test Positive; Pt O2 Delivery Device Ventilator
[2017-02-20 03:33] LABS: ABG Base Excess -1.6 MMOL/L (-2.5-2.5); ABG HCO3 23.4 MMOL/L (20-26); ABG Oxygen Saturation 98.3 % (95-100); ABG PCO2 40.6 MM HG (35-48); ABG PH 7.378 (7.35-7.45); ABG PO2 122.2 MM HG (80-95); ABG TCO2 24.6 MMOL/L (23-27)
[2017-02-20] MEDS: ENOXAPARIN 80 MG/0.8 ML SYRINGE SUBCUT SCH ×2 (05:22→16:58)
[2017-02-20] MEDS: methylPREDNISolone SOD SUC 125 MG/2 ML VIAL IV SCH ×4 (05:22→23:40)
--- NOTE | 2017-02-20 06:02 | EKG Report ---
Stationary ECG Study 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
--- NOTE | 2017-02-20 06:48 | XRay Report ---
Referring Physician: Carri Escobedo Exam: XR chest 1V portable Date: February 20, 2017 at 3:04 AM Reason: Abnormal chest x-ray Comparison: Chest one view portable February 19, 2017 Findings: An endotracheal tube and feeding tube are again in place. The cardiac silhouette is upper normal in size. There are minimal scattered opacities within both lungs, mainly on the right. This likely represents atelectasis, but mild pulmonary edema or resolving pneumonia is not excluded. No pneumothorax or pleural effusion is identified. The osseous structures appear stable. Impression: There is significant improved aeration of the right upper lobe. Minimal residual atelectasis is present. Follow-up with a chest PA lateral study is recommended when clinically feasible since evaluation of the lana is limited on this portable study. PROCEDURE INTERPRETED AT [facility] DEPARTMENT OF RADIOLOGY Final Report Signed by: Dr. Solange Howell
--- NOTE | 2017-02-20 07:35 | Pulmonology Progress Note ---
Pulmonary - PN: Subj Interval history: Patient is a 71-year-old black man that has a component of COPD and presented with acute exacerbation and respiratory failure. He is intubated on the ventilator now. He had right upper lobe atelectasis but that has improved. He does seem to be relatively comfortable on the ventilator. His oxygenation is still not normal but is improved. His hemodynamics are stable and is doing relatively well on the ventilator. Exam (Progress Note) - Constitutional Vitals: Period Temp Pulse Resp BP Sys/Pierce Pulse Ox Last 24 Hr 96.5 F-97.4 F 64-97 12-21 109-161/58-86 98-100 Exam: General appearance: normal weight, no acute distress (He is sedated and comfortable on the ventilator. He is requiring some sedation.) - Head Head exam: Present: normal inspection, normocephalic - Eye Eye exam: Present: EOMI. Absent: scleral icterus Pupils: Present: THIEN - ENT ENT exam: Present: normal exam, other (The ET tube is in good position) - Neck Neck exam: Present: normal inspection. Absent: lymphadenopathy, thyromegaly - Respiratory Respiratory exam: Present: He has good breath sounds bilaterally and his lungs sound clear with less wheezing. - Cardiovascular Cardiovascular exam: Present: regular rate and rhythm. Absent: gallop, systolic murmur - GI/Abdominal GI/Abdominal exam: Present: hypoactive bowel sounds, soft. Absent: distended, organomegaly, tenderness - Extremities Exam Extremities exam: Absent: calf tenderness, edema - Neurological Exam Neurological exam: Present: other (Patient is mainly sedated at present) - Skin Skin exam: Present: warm, dry Results - Labs CBC & BMP: 02/20/17 00:48 02/20/17 00:48 Labs: His PO2 is 122 on 70% and the PCO2 is 40 with a pH of 7.37 - Diagnostic Findings Procedure: Chest x-ray: image reviewed by me, report reviewed by me (Chest x- ray shows improvement of the right upper lobe atelectasis and there are no infiltrates now.) Assessment and Plan (1) Acute respiratory failure Status: Acute Assessment and plan: Patient apparently had respiratory distress and is now on the ventilator. He reportedly has a history of COPD. His right upper lobe atelectasis is better. His oxygenation has improved some. Will adjust his ventilator and continue weaning. Current Visit: Yes (2) Diabetes mellitus Status: Chronic Assessment and plan: His glucose is 202 earlier. Current Visit: Yes (3) Hypertension Status: Chronic Assessment and plan: Patient has a good blood pressure at present Current Visit: Yes (4) COPD (chronic obstructive pulmonary disease) Status: Chronic Assessment and plan: Patient reportedly has COPD and will continue with bronchodilator therapy. Current Visit: Yes (5) History of CVA (cerebrovascular accident) Status: Chronic Assessment and plan: The patient has a remote history of a CVA but had no residual defects. He responds fairly well. Current Visit: Yes (6) Elevated troponin Status: Acute Assessment and plan: Patient has positive cardiac enzymes and is being evaluated by cardiology. Current Visit: Yes
--- NOTE | 2017-02-20 08:13 | Cardiology Progress Note ---
<Carri Escobedo E - Last Filed: 02/20/17 08:02> Assessment and Plan - Time spent with patient Time spent with patient: Greater than 30 minutes (1) Morbid obesity Status: Chronic Assessment and plan: SEE PLAN OF CARE LISTED BELOW Current Visit: Yes (2) Sleep disorder Status: Chronic Assessment and plan: SEE PLAN OF CARE LISTED BELOW Current Visit: Yes (3) Elevated troponin Status: Acute Assessment and plan: SEE PLAN OF CARE LISTED BELOW Current Visit: Yes (4) Renal insufficiency Status: Acute Assessment and plan: SEE PLAN OF CARE LISTED BELOW Current Visit: Yes (5) Acute respiratory failure Status: Acute Assessment and plan: SEE PLAN OF CARE LISTED BELOW Current Visit: Yes (6) COPD (chronic obstructive pulmonary disease) Status: Chronic Assessment and plan: SEE PLAN OF CARE LISTED BELOW Current Visit: Yes (7) Diabetes mellitus Status: Chronic Assessment and plan: SEE PLAN OF CARE LISTED BELOW Current Visit: Yes (8) History of CVA (cerebrovascular accident) Status: Chronic Assessment and plan: SEE PLAN OF CARE LISTED BELOW Current Visit: Yes (9) Hyperlipidemia Status: Chronic Assessment and plan: SEE PLAN OF CARE LISTED BELOW Current Visit: Yes (10) Hypertension Status: Chronic Assessment and plan: SEE PLAN OF CARE LISTED BELOW Current Visit: Yes Cardiology - PN: Subj Interval history: ALTERATION TAILOR: DR. HENDRIX (NEW) PCP: DR. CASTRO Patient is being seen in the ICU. The majority of this information is taken from medical staff and medical records as the patient is intubated without family at the bedside. SUMMARY: Mr. Morse, 71BM, has history of: diabetes, hypertension, dyslipidemia, CVA (June 2015 affecting right side), obesity, COPD and asthma. Patient was received in transfer from [facility] for further evaluation of acute respiratory distress February 19, 2017 after expressing respiratory distress requiring intubation. He was significantly hypertensive. Initially, EKG was abnormal but this has since normalized. Cardiac biomarkers are mildly abnormal in the setting of underlying renal insufficiency. Chest x- ray abnormal, pulmonary following. FEBRUARY 20, 2017: It appears the patient had a primary pulmonary event with possible secondary cardiac ischemia and strain. Overnight, chest x-ray has improved dramatically. Echocardiogram has been ordered. Continue to treat his acute pulmonary issues and, prior to discharge, he may benefit from cardiac catheterization depending on clinical evolution. Troponins are flat. Venous Dopplers bilateral lower extremities negative. He is hypomagnesemic and we will treat this morning. No arrhythmias noted. Wakes and obeys commands. Creatinine has improved from 1.7 to 1.2 this morning. Continues to take aspirin , atorvastatin, beta blockade and Lovenox. Avoiding JULIO inhibitors for fear of worsening his renal insufficiency. Today, will increase his beta-soham for better blood pressure control. ASSESSMENT/PLAN: 1. ACUTE RESPIRATORY FAILURE - currently intubated but follows commands appropriately. Appears to be a primary pulmonary event with possible secondary cardiac ischemia and strain. Pulmonary is following. 2. ELEVATED TROPONIN - cardiac biomarkers flat. May benefit from C prior to discharge. 3. HYPERTENSION - increase betablocker today. 4. DYSLIPIDEMIA - continue Atorvastatin. LDL 78. 5. DIABETES - holding Metformin. Sliding scale insulin 6. RENAL INSUFFICIENCY - resolved this morning. Creatinine has normalized. 7. MORBID OBESITY - dietary counseling prior to discharge 8. SUSPECTED SLEEP APNEA - will need outpatient sleep study eventually. Given his habitus, I strongly suspect he has obstructive sleep apnea 9. HISTORY OF CVA - continue current plan of care Exam (Progress Note) - Constitutional Vitals: Period Temp Pulse Resp BP Sys/Pierce Pulse Ox Last 24 Hr 96.5 F-97.4 F 64-97 12-21 109-161/58-86 98-100 Exam: General: [Intubated, sedated but wakes and follows commands. ] [Appears comfortable.] HEENT: [Normocephalic, atraumatic. Mucous membranes moist. No jaundice noted. Conjunctiva moist and clear, sclerae anicteric] Neck: Difficult to assess for JVD due to habitus. No obvious JVD is noted, no thyromegaly or lymphadenopathy noted. No carotid bruit appreciated Cardiac: [Regular rate and rhythm.] [No obvious murmur rub or gallop.] Lungs: [Rhonchi throughout, no wheezing or rales. Symmetrical chest wall movements noted. Abdomen: Soft, bowel sounds normoactive. Nontender and nondistended. No abdominal bruit or thrill noted. No masses noted. Musculoskeletal: No fluid collection. Decreased range of motion is noted. Extremities: No clubbing, cyanosis noted. [ No edema noted.] Upper extremity pulses 2+. Lower extremity pulses 2+. Capillary refill less than 3 seconds. Skin: No unusual lesions or rashes. No skin breakdown appreciated. Neuro: Awake easily and follows commands. No essential tremor is appreciated. Result/EKG - Labs CBC & BMP: 02/20/17 00:48 02/20/17 00:48 Lab Results: I have reviewed the past 24 hour labs Labs: Laboratory Results - last 24 hr 02/19/17 02/19/17 02/19/17 11:35 12:13 12:13 WBC RBC Hgb Hct MCV MCH MCHC RDW Plt Count MPV Neut % (Auto) Lymph % (Auto) [place] % (Auto) Eos % (Auto) Baso % (Auto) Neut # (Auto) Lymph # (Auto) [place] # (Auto) Eos # (Auto) Baso # (Auto) Immature Gran % Nucleated RBC % Immature Gran # Nucleated RBCs # D-Dimer, Quantitative ABG pH 7.324 L ABG pCO2 48.8 H ABG pO2 276.0 H ABG HCO3 23.4 ABG Total CO2 22.4 L ABG O2 Saturation 99.5 ABG Base Excess -1.3 FiO2 Sodium Potassium Chloride Carbon Dioxide Anion Gap BUN Creatinine GFR Calculation BUN/Creatinine Ratio Glucose POC Glucose Hemoglobin A1c Calculated Osmolality Calcium Magnesium Total Bilirubin Direct Bilirubin Indirect Bilirubin AST ALT Alkaline Phosphatase Total Creatine Kinase CK-MB (CK-2) CK and CKMB Interp Troponin I Total Protein Albumin Triglycerides Cholesterol LDL Cholesterol VLDL Cholesterol HDL Cholesterol Heart Disease Risk Ratio TSH 3rd Generation Urine Color Straw Urine Appearance Clear Urine pH 6.0 Ur Specific [place] 1.012 Urine Protein 30 Urine Glucose (UA) >=500 Urine Ketones Negative Urine Blood Small Urine Nitrate Negative Urine Bilirubin Negative Urine Urobilinogen < 2.0 H Urine Leukocytes Negative Urine RBC 2 Urine WBC 2 Ur Squamous Epith Cells Occasional Amorphous Crystals Occasional Urine Bacteria Occasional Urine Mucus Occasional Ur Culture Indicated? Not indicated Urine Opiates Screen Negative Ur Barbiturates Screen Negative Ur Phencyclidine Scrn Negative U Amphetamine/Methamph Negative U Benzodiazepines Scrn Positive H U Cocaine Metab Screen Negative U Cannabinoids Screen Negative 02/19/17 02/19/17 02/19/17 13:25 13:25 13:25 WBC RBC Hgb Hct MCV MCH MCHC RDW Plt Count MPV Neut % (Auto) Lymph % (Auto) [place] % (Auto) Eos % (Auto) Baso % (Auto) Neut # (Auto) Lymph # (Auto) [place] # (Auto) Eos # (Auto) Baso # (Auto) Immature Gran % Nucleated RBC % Immature Gran # Nucleated RBCs # D-Dimer, Quantitative 0.7 ABG pH ABG pCO2 ABG pO2 ABG HCO3 ABG Total CO2 ABG O2 Saturation ABG Base Excess FiO2 Sodium Potassium Chloride Carbon Dioxide Anion Gap BUN Creatinine GFR Calculation BUN/Creatinine Ratio Glucose POC Glucose Hemoglobin A1c Calculated Osmolality Calcium Magnesium Total Bilirubin Direct Bilirubin Indirect Bilirubin AST ALT Alkaline Phosphatase Total Creatine Kinase 239 CK-MB (CK-2) 8.2 H CK and CKMB Interp 3.4 Troponin I 1.490 H Total Protein Albumin Triglycerides 53 Cholesterol 135 LDL Cholesterol 81.0 VLDL Cholesterol 10.6 HDL Cholesterol 43 Heart Disease Risk Ratio 3.14 TSH 3rd Generation Urine Color Urine Appearance Urine pH Ur Specific [place] Urine Protein Urine Glucose (UA) Urine Ketones Urine Blood Urine Nitrate Urine Bilirubin Urine Urobilinogen Urine Leukocytes Urine RBC Urine WBC Ur Squamous Epith Cells Amorphous Crystals Urine Bacteria Urine Mucus Ur Culture Indicated? Urine Opiates Screen Ur Barbiturates Screen Ur Phencyclidine Scrn U Amphetamine/Methamph U Benzodiazepines Scrn U Cocaine Metab Screen U Cannabinoids Screen 02/19/17 02/19/17 02/19/17 16:54 18:03 23:08 WBC RBC Hgb Hct MCV MCH MCHC RDW Plt Count MPV Neut % (Auto) Lymph % (Auto) [place] % (Auto) Eos % (Auto) Baso % (Auto) Neut # (Auto) Lymph # (Auto) [place] # (Auto) Eos # (Auto) Baso # (Auto) Immature Gran % Nucleated RBC % Immature Gran # Nucleated RBCs # D-Dimer, Quantitative ABG pH ABG pCO2 ABG pO2 ABG HCO3 ABG Total CO2 ABG O2 Saturation ABG Base Excess FiO2 Sodium Potassium Chloride Carbon Dioxide Anion Gap BUN Creatinine GFR Calculation BUN/Creatinine Ratio Glucose POC Glucose 192 H 181 H Hemoglobin A1c Calculated Osmolality Calcium Magnesium Total Bilirubin Direct Bilirubin Indirect Bilirubin AST ALT Alkaline Phosphatase Total Creatine Kinase 245 CK-MB (CK-2) 10.2 H CK and CKMB Interp 4.2 Troponin I 1.950 H D Total Protein Albumin Triglycerides Cholesterol LDL Cholesterol VLDL Cholesterol HDL Cholesterol Heart Disease Risk Ratio TSH 3rd Generation Urine Color Urine Appearance Urine pH Ur Specific [place] Urine Protein Urine Glucose (UA) Urine Ketones Urine Blood Urine Nitrate Urine Bilirubin Urine Urobilinogen Urine Leukocytes Urine RBC Urine WBC Ur Squamous Epith Cells Amorphous Crystals Urine Bacteria Urine Mucus Ur Culture Indicated? Urine Opiates Screen Ur Barbiturates Screen Ur Phencyclidine Scrn U Amphetamine/Methamph U Benzodiazepines Scrn U Cocaine Metab Screen U Cannabinoids Screen 02/20/17 02/20/17 02/20/17 00:48 00:48 00:48 WBC RBC Hgb Hct MCV MCH MCHC RDW Plt Count MPV Neut % (Auto) Lymph % (Auto) [place] % (Auto) Eos % (Auto) Baso % (Auto) Neut # (Auto) Lymph # (Auto) [place] # (Auto) Eos # (Auto) Baso # (Auto) Immature Gran % Nucleated RBC % Immature Gran # Nucleated RBCs # D-Dimer, Quantitative ABG pH ABG pCO2 ABG pO2 ABG HCO3 ABG Total CO2 ABG O2 Saturation ABG Base Excess FiO2 Sodium 142 Potassium 4.0 Chloride 107 Carbon Dioxide 24 Anion Gap 15.0 BUN 16 Creatinine 1.20 GFR Calculation 97 BUN/Creatinine Ratio 13.00 Glucose 198 H POC Glucose Hemoglobin A1c Calculated Osmolality 289.1 Calcium 8.4 L Magnesium 1.7 L Total Bilirubin 0.40 Direct Bilirubin < 0.10 Indirect Bilirubin 0.3 AST 28 ALT 27 Alkaline Phosphatase 52 Total Creatine Kinase 249 CK-MB (CK-2) 11.8 H CK and CKMB Interp 4.7 Troponin I 1.380 H D Total Protein 6.0 L Albumin 3.3 L Triglycerides 57 Cholesterol 140 LDL Cholesterol 78.0 VLDL Cholesterol 11.4 HDL Cholesterol 46 Heart Disease Risk Ratio 3.04 TSH 3rd Generation Urine Color Urine Appearance Urine pH Ur Specific [place] Urine Protein Urine Glucose (UA) Urine Ketones Urine Blood Urine Nitrate Urine Bilirubin Urine Urobilinogen Urine Leukocytes Urine RBC Urine WBC Ur Squamous Epith Cells Amorphous Crystals Urine Bacteria Urine Mucus Ur Culture Indicated? Urine Opiates Screen Ur Barbiturates Screen Ur Phencyclidine Scrn U Amphetamine/Methamph U Benzodiazepines Scrn U Cocaine Metab Screen U Cannabinoids Screen 02/20/17 02/20/17 02/20/17 00:48 00:48 00:48 WBC 8.6 RBC 3.85 Hgb 12.3 L Hct 37.3 L MCV 96.9 MCH 32 MCHC 33.0 RDW 13.2 Plt Count 195 MPV 12.9 H Neut % (Auto) 89.9 H Lymph % (Auto) 6.5 L [place] % (Auto) 2.2 Eos % (Auto) 0.0 Baso % (Auto) 0.1 Neut # (Auto) 7.8 H Lymph # (Auto) 0.6 L [place] # (Auto) 0.2 Eos # (Auto) 0.0 Baso # (Auto) 0.0 Immature Gran % 1.3 Nucleated RBC % 0.0 Immature Gran # 0.11 Nucleated RBCs # 0.00 D-Dimer, Quantitative ABG pH ABG pCO2 ABG pO2 ABG HCO3 ABG Total CO2 ABG O2 Saturation ABG Base Excess FiO2 Sodium Potassium Chloride Carbon Dioxide Anion Gap BUN Creatinine GFR Calculation BUN/Creatinine Ratio Glucose POC Glucose Hemoglobin A1c 6.6 H Calculated Osmolality Calcium Magnesium Total Bilirubin Direct Bilirubin Indirect Bilirubin AST ALT Alkaline Phosphatase Total Creatine Kinase CK-MB (CK-2) CK and CKMB Interp Troponin I Total Protein Albumin Triglycerides Cholesterol LDL Cholesterol VLDL Cholesterol HDL Cholesterol Heart Disease Risk Ratio TSH 3rd Generation 0.411 Urine Color Urine Appearance Urine pH Ur Specific [place] Urine Protein Urine Glucose (UA) Urine Ketones Urine Blood Urine Nitrate Urine Bilirubin Urine Urobilinogen Urine Leukocytes Urine RBC Urine WBC Ur Squamous Epith Cells Amorphous Crystals Urine Bacteria Urine Mucus Ur Culture Indicated? Urine Opiates Screen Ur Barbiturates Screen Ur Phencyclidine Scrn U Amphetamine/Methamph U Benzodiazepines Scrn U Cocaine Metab Screen U Cannabinoids Screen 02/20/17 02/20/17 03:20 05:43 WBC RBC Hgb Hct MCV MCH MCHC RDW Plt Count MPV Neut % (Auto) Lymph % (Auto) [place] % (Auto) Eos % (Auto) Baso % (Auto) Neut # (Auto) Lymph # (Auto) [place] # (Auto) Eos # (Auto) Baso # (Auto) Immature Gran % Nucleated RBC % Immature Gran # Nucleated RBCs # D-Dimer, Quantitative ABG pH 7.378 ABG pCO2 40.6 ABG pO2 122.2 H ABG HCO3 23.4 ABG Total CO2 24.6 ABG O2 Saturation 98.3 ABG Base Excess -1.6 FiO2 70.00 Sodium Potassium Chloride Carbon Dioxide Anion Gap BUN Creatinine GFR Calculation BUN/Creatinine Ratio Glucose POC Glucose 202 H Hemoglobin A1c Calculated Osmolality Calcium Magnesium Total Bilirubin Direct Bilirubin Indirect Bilirubin AST ALT Alkaline Phosphatase Total Creatine Kinase CK-MB (CK-2) CK and CKMB Interp Troponin I Total Protein Albumin Triglycerides Cholesterol LDL Cholesterol VLDL Cholesterol HDL Cholesterol Heart Disease Risk Ratio TSH 3rd Generation Urine Color Urine Appearance Urine pH Ur Specific [place] Urine Protein Urine Glucose (UA) Urine Ketones Urine Blood Urine Nitrate Urine Bilirubin Urine Urobilinogen Urine Leukocytes Urine RBC Urine WBC Ur Squamous Epith Cells Amorphous Crystals Urine Bacteria Urine Mucus Ur Culture Indicated? Urine Opiates Screen Ur Barbiturates Screen Ur Phencyclidine Scrn U Amphetamine/Methamph U Benzodiazepines Scrn U Cocaine Metab Screen U Cannabinoids Screen - Diagnostic Findings Procedure: Chest x-ray: report reviewed by me - EKG EKG results: interpreted by me EKG shows: sinus rhythm <Karol Hendrix - Last Filed: 02/20/17 21:08> Cardiology - PN: Subj Interval history: I have personally interviewed and evaluated the patient, reviewed the chart and discussed medical decision-making with Practitioner Fanny. I have read this note and agree with her documentation here in. The patient was seen earlier this morning. Because this does not appear to be an acute coronary syndrome I will decrease his Lovenox to prophylactic dosing. Beta-soham has been up titrated. Exam (Progress Note) - Constitutional Vitals: Period Temp Pulse Resp BP Sys/Pierce Pulse Ox Last 24 Hr 96.7 F-97.6 F 62-98 12-21 102-184/47-86 98-100 Result/EKG - Labs CBC & BMP: 02/20/17 00:48 02/20/17 00:48 Labs: Laboratory Results - last 24 hr 02/19/17 02/19/17 02/20/17 12:13 23:08 00:48 WBC RBC Hgb Hct MCV MCH MCHC RDW Plt Count MPV Neut % (Auto) Lymph % (Auto) [place] % (Auto) Eos % (Auto) Baso % (Auto) Neut # (Auto) Lymph # (Auto) [place] # (Auto) Eos # (Auto) Baso # (Auto) Immature Gran % Nucleated RBC % Immature Gran # Nucleated RBCs # ABG pH ABG pCO2 ABG pO2 ABG HCO3 ABG Total CO2 ABG O2 Saturation ABG Base Excess FiO2 Sodium Potassium Chloride Carbon Dioxide Anion Gap BUN Creatinine GFR Calculation BUN/Creatinine Ratio Glucose POC Glucose 181 H Hemoglobin A1c Calculated Osmolality Calcium Magnesium Total Bilirubin 0.40 Direct Bilirubin < 0.10 Indirect Bilirubin 0.3 AST 28 ALT 27 Alkaline Phosphatase 52 Total Creatine Kinase CK-MB (CK-2) CK and CKMB Interp Troponin I Total Protein 6.0 L Albumin 3.3 L Triglycerides Cholesterol LDL Cholesterol VLDL Cholesterol HDL Cholesterol Heart Disease Risk Ratio TSH 3rd Generation Urine Opiates Screen Negative Ur Barbiturates Screen Negative Ur Phencyclidine Scrn Negative U Amphetamine/Methamph Negative U Benzodiazepines Scrn Positive H U Cocaine Metab Screen Negative U Cannabinoids Screen Negative 02/20/17 02/20/17 02/20/17 00:48 00:48 00:48 WBC 8.6 RBC 3.85 Hgb 12.3 L Hct 37.3 L MCV 96.9 MCH 32 MCHC 33.0 RDW 13.2 Plt Count 195 MPV 12.9 H Neut % (Auto) 89.9 H Lymph % (Auto) 6.5 L [place] % (Auto) 2.2 Eos % (Auto) 0.0 Baso % (Auto) 0.1 Neut # (Auto) 7.8 H Lymph # (Auto) 0.6 L [place] # (Auto) 0.2 Eos # (Auto) 0.0 Baso # (Auto) 0.0 Immature Gran % 1.3 Nucleated RBC % 0.0 Immature Gran # 0.11 Nucleated RBCs # 0.00 ABG pH ABG pCO2 ABG pO2 ABG HCO3 ABG Total CO2 ABG O2 Saturation ABG Base Excess FiO2 Sodium 142 Potassium 4.0 Chloride 107 Carbon Dioxide 24 Anion Gap 15.0 BUN 16 Creatinine 1.20 GFR Calculation 97 BUN/Creatinine Ratio 13.00 Glucose 198 H POC Glucose Hemoglobin A1c Calculated Osmolality 289.1 Calcium 8.4 L Magnesium 1.7 L Total Bilirubin Direct Bilirubin Indirect Bilirubin AST ALT Alkaline Phosphatase Total Creatine Kinase 249 CK-MB (CK-2) 11.8 H CK and CKMB Interp 4.7 Troponin I 1.380 H D Total Protein Albumin Triglycerides 57 Cholesterol 140 LDL Cholesterol 78.0 VLDL Cholesterol 11.4 HDL Cholesterol 46 Heart Disease Risk Ratio 3.04 TSH 3rd Generation Urine Opiates Screen Ur Barbiturates Screen Ur Phencyclidine Scrn U Amphetamine/Methamph U Benzodiazepines Scrn U Cocaine Metab Screen U Cannabinoids Screen 02/20/17 02/20/17 02/20/17 00:48 00:48 03:20 WBC RBC Hgb Hct MCV MCH MCHC RDW Plt Count MPV Neut % (Auto) Lymph % (Auto) [place] % (Auto) Eos % (Auto) Baso % (Auto) Neut # (Auto) Lymph # (Auto) [place] # (Auto) Eos # (Auto) Baso # (Auto) Immature Gran % Nucleated RBC % Immature Gran # Nucleated RBCs # ABG pH 7.378 ABG pCO2 40.6 ABG pO2 122.2 H ABG HCO3 23.4 ABG Total CO2 24.6 ABG O2 Saturation 98.3 ABG Base Excess -1.6 FiO2 70.00 Sodium Potassium Chloride Carbon Dioxide Anion Gap BUN Creatinine GFR Calculation BUN/Creatinine Ratio Glucose POC Glucose Hemoglobin A1c 6.6 H Calculated Osmolality Calcium Magnesium Total Bilirubin Direct Bilirubin Indirect Bilirubin AST ALT Alkaline Phosphatase Total Creatine Kinase CK-MB (CK-2) CK and CKMB Interp Troponin I Total Protein Albumin Triglycerides Cholesterol LDL Cholesterol VLDL Cholesterol HDL Cholesterol Heart Disease Risk Ratio TSH 3rd Generation 0.411 Urine Opiates Screen Ur Barbiturates Screen Ur Phencyclidine Scrn U Amphetamine/Methamph U Benzodiazepines Scrn U Cocaine Metab Screen U Cannabinoids Screen 02/20/17 02/20/17 02/20/17 05:43 08:30 11:26 WBC RBC Hgb Hct MCV MCH MCHC RDW Plt Count MPV Neut % (Auto) Lymph % (Auto) [place] % (Auto) Eos % (Auto) Baso % (Auto) Neut # (Auto) Lymph # (Auto) [place] # (Auto) Eos # (Auto) Baso # (Auto) Immature Gran % Nucleated RBC % Immature Gran # Nucleated RBCs # ABG pH ABG pCO2 ABG pO2 ABG HCO3 ABG Total CO2 ABG O2 Saturation ABG Base Excess FiO2 Sodium Potassium Chloride Carbon Dioxide Anion Gap BUN Creatinine GFR Calculation BUN/Creatinine Ratio Glucose POC Glucose 202 H 262 H Hemoglobin A1c Calculated Osmolality Calcium Magnesium Total Bilirubin Direct Bilirubin Indirect Bilirubin AST ALT Alkaline Phosphatase Total Creatine Kinase 229 CK-MB (CK-2) 11.0 H CK and CKMB Interp 4.8 Troponin I 0.777 H D Total Protein Albumin Triglycerides Cholesterol LDL Cholesterol VLDL Cholesterol HDL Cholesterol Heart Disease Risk Ratio TSH 3rd Generation Urine Opiates Screen Ur Barbiturates Screen Ur Phencyclidine Scrn U Amphetamine/Methamph U Benzodiazepines Scrn U Cocaine Metab Screen U Cannabinoids Screen 02/20/17 17:54 WBC RBC Hgb Hct MCV MCH MCHC RDW Plt Count MPV Neut % (Auto) Lymph % (Auto) [place] % (Auto) Eos % (Auto) Baso % (Auto) Neut # (Auto) Lymph # (Auto) [place] # (Auto) Eos # (Auto) Baso # (Auto) Immature Gran % Nucleated RBC % Immature Gran # Nucleated RBCs # ABG pH ABG pCO2 ABG pO2 ABG HCO3 ABG Total CO2 ABG O2 Saturation ABG Base Excess FiO2 Sodium Potassium Chloride Carbon Dioxide Anion Gap BUN Creatinine GFR Calculation BUN/Creatinine Ratio Glucose POC Glucose 245 H Hemoglobin A1c Calculated Osmolality Calcium Magnesium Total Bilirubin Direct Bilirubin Indirect Bilirubin AST ALT Alkaline Phosphatase Total Creatine Kinase CK-MB (CK-2) CK and CKMB Interp Troponin I Total Protein Albumin Triglycerides Cholesterol LDL Cholesterol VLDL Cholesterol HDL Cholesterol Heart Disease Risk Ratio TSH 3rd Generation Urine Opiates Screen Ur Barbiturates Screen Ur Phencyclidine Scrn U Amphetamine/Methamph U Benzodiazepines Scrn U Cocaine Metab Screen U Cannabinoids Screen
[2017-02-20] MEDS ORDERED: amLODIPine 10 MG TABLET PO SCH (09:00)
[2017-02-20] MEDS: PANTOPRAZOLE 40 MG VIAL IV SCH (09:10)
[2017-02-20] MEDS: METOPROLOL TARTRATE 50 MG TABLET PO SCH ×2 (09:11→20:50)
[2017-02-20 09:12] LABS: CKMB % 4.8 %; Troponin I Only 0.777 NG/ML (0.00-0.045)
[2017-02-20] MEDS: ASPIRIN CHEW 81 MG TABLET PO SCH (09:13)
[2017-02-20] MEDS: DEXTROSE 5% NACL 0.45% 1,000 ML IV SCH (09:26)
[2017-02-20] MEDS ORDERED: MAGNESIUM SULF RIDER 2 GM in PREMIX 1 EACH IV ONE (10:12)
--- NOTE | 2017-02-20 10:16 | Hospitalist Progress Note ---
Hospitalist: Subjective Interval history: Pt waking up on vent and moving all extremities/ following commands per nursing. No fever. Awaiting tube feeds. No bowel movement recorded since admission. Exam - Constitutional Vitals: Period Temp Pulse Resp BP Sys/Pierce Pulse Ox Last 24 Hr 96.5 F-97.4 F 64-97 12-21 109-161/58-86 98-100 Exam: Alert, awake, intubated on the vent RRR no M CTAB nonlabored Soft, NT, ND, +BS Warm no c/c/e Results - Labs CBC & BMP: 02/20/17 00:48 02/20/17 00:48 - Impressions #1. Acute hypoxic and hypercarbic respiratory failure suspected due to acute COPD exacerbation. #2. Accelerated hypertension-blood pressure now much better controlled. #3. Diabetes mellitus type 2 controlled with hemoglobin A1c of 6.6 #4. Hypernatremia and hyperchloremia likely due to dehydration-improved #5. Acute kidney injury on chronic kidney disease stage III #6. Leukocytosis-improving #7. History of DVT Cont management in ICU as patient is currently critical requiring vent support. Pulmonology following for vent management. Weaning as tolerated Cont IV antibiotics Follow-up blood, respiratory, and urine cultures. Bronchodilators, pulmonary toileting, IV steroids Continue insulin sliding scale with Accu-Cheks every 6h. Urine drug screen reviewed and is positive for benzos TSH normal d-dimer pending Repeat chest x-ray shows improvement Serial cardiac markers shows that the troponin is trending down Hydralazine 10 mg IV every 6 hours as needed for systolic blood pressure greater than 170 or diastolic blood pressure of 110 or greater Protonix IV since patient is on high-dose steroids to prevent gastritis Awaiting nutrition to evaluate for tube feedings since patient has not been extubated. SCDs for DVT prophylaxis at this time 40 minutes evaluating and treating this patient. Discussed with nurse. All questions answered.
[2017-02-20] MEDS: cefTRIAXone 1,000 MG in SODIUM CHLORIDE 0.9% 100 ML IV SCH (14:11)
[2017-02-20] MEDS: ALFUZOSIN 10 MG TABLET PO SCH (20:50)
[2017-02-20] MEDS: ATORVASTATIN 20 MG TABLET PO SCH (20:50)
[2017-02-21] MEDS: PROPOFOL 1,000 MG/100 ML BOTTLE IV SCH ×9 (02:16→23:08)
[2017-02-21] MEDS: DEXTROSE 5% NACL 0.45% 1,000 ML IV SCH (04:46)
[2017-02-21] MEDS: INSULIN REGULAR 100 UNIT/ML SUBCUT SCH ×3 (06:00→18:09)
[2017-02-21 06:46] LABS: Basophils % 0.1 % (0.0-0.8); Hematocrit 39.4 VOL% (42.0-52.0); Immature Granulocytes % 1.2 %; Immature Granulocytes Absolute 0.14 #; Lymphocytes # 0.5 10*3/uL (1.4-4.0); Lymphocytes % 3.7 % (21.2-54.2); Mean Corpuscular Hemoglobin 32 PG (27-34); Mean Corpuscular Volume 97.5 FL (87-102); Mean Platelet Volume 13.3 FL (9.6-12.0); Monocytes # 0.5 10*3/uL (0.11-0.8); Monocytes % 4.1 % (1.7-12.7); Neutrophils # 11.1 10*3/uL (1.4-7.4); Neutrophils % 90.9 % (38.7-73.9); Platelet Count 124 T/CUMM (130-400); Red Blood Count 4.04 MC/CUMM (3.8-5.5); Red Cell Distribution Width 13.2 % (9.3-17.3); White Blood Count 12.2 T/CUMM (4-12)
[2017-02-21 07:14] LABS: ABG HCO3 24.4 MMOL/L (20-26); ABG Oxygen Saturation 98.3 % (95-100); ABG PCO2 38.8 MM HG (35-48); ABG PH 7.408 (7.35-7.45); ABG TCO2 21.4 MMOL/L (23-27)
[2017-02-21] MEDS: methylPREDNISolone SOD SUC 125 MG/2 ML VIAL IV SCH ×2 (07:39→19:41)
[2017-02-21 07:44] LABS: Band Neutrophils 3 % (0-10); Hypochromasia Slight; Lymphocytes 11 % (20-55); Platelet Estimate Decreased; Segmented Neutrophils 83 % (50-85); Total Cells Counted 100
[2017-02-21 07:50] LABS: Calcium 8.7 MG/DL (8.5-10.1); Magnesium 2.4 MG/DL (1.8-2.4); Osmolality,Calculated 289.3 MOS/KG (273-304); Potassium 4.5 MMOL/L (3.5-5.1)
[2017-02-21] MEDS: ALBUTEROL 2.5 MG/3 ML NEB RESP TX SCH ×5 (07:52→19:48)
[2017-02-21 08:15] LABS: Phosphorous 2.9 MG/DL (2.5-4.9); Prealbumin 30.5 MG/DL (20-40)
[2017-02-21] MEDS: METOPROLOL TARTRATE 50 MG TABLET PO SCH ×2 (08:30→21:28)
[2017-02-21] MEDS: ASPIRIN CHEW 81 MG TABLET PO SCH (08:30)
[2017-02-21] MEDS: PANTOPRAZOLE 40 MG VIAL IV SCH (08:31)
[2017-02-21] MEDS: amLODIPine 5 MG TABLET PO SCH (09:52)
--- NOTE | 2017-02-21 12:16 | Pulmonology Progress Note ---
Pulmonary - PN: Subj Interval history: Patient is a 71-year-old black man that has a component of COPD and presented with acute exacerbation and respiratory failure. He is intubated on the ventilator now. He had right upper lobe atelectasis but that has improved. He does seem to be relatively comfortable on the ventilator. His oxygenation is improving and his chest x-ray looks better. Will see how he does on CPAP. Exam (Progress Note) - Constitutional Vitals: Period Temp Pulse Resp BP Sys/Pierce Pulse Ox Last 24 Hr 96.7 F-97.6 F 59-98 12-17 139-184/47-80 96-100 Exam: General appearance: normal weight, no acute distress (He is sedated and comfortable on the ventilator. He is requiring some sedation.) - Head Head exam: Present: normal inspection, normocephalic - Eye Eye exam: Present: EOMI. Absent: scleral icterus Pupils: Present: THIEN - ENT ENT exam: Present: normal exam, other (The ET tube is in good position) - Neck Neck exam: Present: normal inspection. Absent: lymphadenopathy, thyromegaly - Respiratory Respiratory exam: Present: He has good breath sounds bilaterally and his lungs sound clear with less wheezing. He is moving air okay today. - Cardiovascular Cardiovascular exam: Present: regular rate and rhythm. Absent: gallop, systolic murmur - GI/Abdominal GI/Abdominal exam: Present: hypoactive bowel sounds, soft. Absent: distended, organomegaly, tenderness - Extremities Exam Extremities exam: Absent: calf tenderness, edema - Neurological Exam Neurological exam: Present: other (Patient is mainly sedated at present) - Skin Skin exam: Present: warm, dry Results - Labs CBC & BMP: 02/21/17 04:00 02/21/17 06:50 Labs: His PO2 is 113 with a PCO2 of 38 and a pH of 7.4 - Diagnostic Findings Procedure: Chest x-ray: image reviewed by me, report reviewed by me (Chest x- ray is fairly clear now.) Assessment and Plan (1) Acute respiratory failure Status: Acute Assessment and plan: Patient apparently had respiratory distress and is now on the ventilator. He reportedly has a history of COPD. His right upper lobe atelectasis is better. His oxygenation has improved some. We will see how he does on CPAP. Current Visit: Yes (2) Diabetes mellitus Status: Chronic Assessment and plan: His glucose is 213 earlier. Current Visit: Yes (3) Hypertension Status: Chronic Assessment and plan: Patient has a good blood pressure at present Current Visit: Yes (4) COPD (chronic obstructive pulmonary disease) Status: Chronic Assessment and plan: Patient reportedly has COPD and will continue with bronchodilator therapy. His lungs sound better today. Current Visit: Yes (5) History of CVA (cerebrovascular accident) Status: Chronic Assessment and plan: The patient has a remote history of a CVA but had no residual defects. He responds fairly well. Current Visit: Yes (6) Elevated troponin Status: Acute Assessment and plan: Patient has positive cardiac enzymes and is being evaluated by cardiology. He appears to be hemodynamically stable. Current Visit: Yes
--- NOTE | 2017-02-21 12:16 | Hospitalist Progress Note ---
Hospitalist: Subjective Interval history: Patient has been weaned to 50% FiO2 and later today we will start CPAP trials. Awakens and follows commands off sedation per nursing. Tolerating tube feeds. No fever. Exam - Constitutional Vitals: Period Temp Pulse Resp BP Sys/Pierce Pulse Ox Last 24 Hr 96.7 F-98.8 F 59-98 12-17 139-184/47-80 96-100 Exam: Intubated and sedated on the vent RRR no M CTAB nonlabored Soft, NT, ND, +BS Warm no c/c/e Results - Labs CBC & BMP: 02/21/17 04:00 02/21/17 06:50 Labs: blood, urine, and sputum cultures negative - Impressions #1. Acute hypoxic and hypercarbic respiratory failure suspected due to acute COPD exacerbation. -Improving #2. Accelerated hypertension-blood pressure now much better controlled. #3. Diabetes mellitus type 2 controlled with hemoglobin A1c of 6.6 #4. Hypernatremia and hyperchloremia likely due to dehydration-resolved #5. Acute kidney injury on chronic kidney disease stage III-much improved. I suspect the patient is at baseline. #6. Leukocytosis-possibly steroid-induced #7. History of DVT #8. Thrombocytopenia Cont management in ICU as patient is currently critical requiring vent support. Pulmonology following for vent management. Weaning as tolerated Cont IV antibiotics Follow-up blood, respiratory, and urine cultures. Bronchodilators, pulmonary toileting, continue to wean IV steroids Continue insulin sliding scale with Accu-Cheks every 6h. Urine drug screen reviewed and is positive for benzos TSH normal d-dimer negative Repeat chest x-ray shows improvement Serial cardiac markers shows that the troponin is trending down. Cardiology following. Possible catheterization prior to discharge Hydralazine 10 mg IV every 6 hours as needed for systolic blood pressure greater than 170 or diastolic blood pressure of 110 or greater Protonix IV since patient is on high-dose steroids to prevent gastritis Continue tube feeds and increase to goal per nutrition recommendations per protocol SCDs for DVT prophylaxis at this time Redraw CBC in a coagulation tube to prevent clotting and rule out pseudothrombocytopenia. Also check coags. Discussed with nurse. All questions answered.
--- NOTE | 2017-02-21 12:19 | Cardiology Progress Note ---
<Carri Escobedo E - Last Filed: 02/21/17 09:11> Assessment and Plan - Time spent with patient Time spent with patient: Greater than 30 minutes (1) Morbid obesity Status: Chronic Assessment and plan: SEE PLAN OF CARE LISTED BELOW Current Visit: Yes (2) Sleep disorder Status: Chronic Assessment and plan: SEE PLAN OF CARE LISTED BELOW Current Visit: Yes (3) Elevated troponin Status: Acute Assessment and plan: SEE PLAN OF CARE LISTED BELOW Current Visit: Yes (4) Renal insufficiency Status: Acute Assessment and plan: SEE PLAN OF CARE LISTED BELOW Current Visit: Yes (5) Acute respiratory failure Status: Acute Assessment and plan: SEE PLAN OF CARE LISTED BELOW Current Visit: Yes (6) COPD (chronic obstructive pulmonary disease) Status: Chronic Assessment and plan: SEE PLAN OF CARE LISTED BELOW Current Visit: Yes (7) Diabetes mellitus Status: Chronic Assessment and plan: SEE PLAN OF CARE LISTED BELOW Current Visit: Yes (8) History of CVA (cerebrovascular accident) Status: Chronic Assessment and plan: SEE PLAN OF CARE LISTED BELOW Current Visit: Yes (9) Hyperlipidemia Status: Chronic Assessment and plan: SEE PLAN OF CARE LISTED BELOW Current Visit: Yes (10) Hypertension Status: Chronic Assessment and plan: SEE PLAN OF CARE LISTED BELOW Current Visit: Yes Cardiology - PN: Subj Interval history: HOME THEATRE TECHNICIAN: DR. HENDRIX (NEW) PCP: DR. CASTRO Patient is being seen in the ICU. The majority of this information is taken from medical staff and medical records as the patient is intubated without family at the bedside. SUMMARY: Mr. Morse, 71BM, has history of: diabetes, hypertension, dyslipidemia, CVA (June 2015 affecting right side), obesity, COPD and asthma. Patient was received in transfer from [facility] for further evaluation of acute respiratory distress February 19, 2017 after expressing respiratory distress requiring intubation. He was significantly hypertensive. Initially, EKG was abnormal but this has since normalized. Cardiac biomarkers are mildly abnormal in the setting of underlying renal insufficiency. Chest x- ray abnormal, pulmonary following. FEBRUARY 20, 2017: It appears the patient had a primary pulmonary event with possible secondary cardiac ischemia and strain. Overnight, chest x-ray has improved dramatically. Continue to treat his acute pulmonary issues and, prior to discharge, he may benefit from cardiac catheterization depending on clinical evolution. Troponins are flat. Venous Dopplers bilateral lower extremities negative. He is hypomagnesemic and we will treat this morning. No arrhythmias noted. Wakes and obeys commands. Creatinine has improved from 1.7 to 1.2 this morning. Continues to take aspirin, atorvastatin, beta blockade and Lovenox. Avoiding JULIO inhibitors for fear of worsening his renal insufficiency. Today, will increase his beta-soham for better blood pressure control. FEBRUARY 21, 2017: Overnight, no significant change. He appears to be very comfortable on the ventilator. Systolic blood pressures averaging around 170. Creatinine is 1.2 this morning. JULIO inhibitors have been avoided for fear of worsening his renal insufficiency. I will add Norvasc this morning for better control titrating up as we need to. No arrhythmias noted. Platelet count has dropped overnight to 124. Lovenox was decreased to lower dose yesterday as this is not considered acute coronary syndrome. Eventually, once patient's condition has stabilized, he may benefit from cardiac catheterization. ASSESSMENT/PLAN: 1. ACUTE RESPIRATORY FAILURE - currently intubated but follows commands appropriately. Appears to be a primary pulmonary event with possible secondary cardiac ischemia and strain. Pulmonary is following. 2. ELEVATED TROPONIN - cardiac biomarkers flat. May benefit from LHC prior to discharge. 3. HYPERTENSION - beta-soham increased yesterday. Will add Norvasc today. 4. DYSLIPIDEMIA - continue Atorvastatin. LDL 78. 5. DIABETES - holding Metformin. Sliding scale insulin 6. RENAL INSUFFICIENCY - resolved. Creatinine has normalized. 7. MORBID OBESITY - dietary counseling prior to discharge 8. SUSPECTED SLEEP APNEA - will need outpatient sleep study eventually. Given his habitus, I strongly suspect he has obstructive sleep apnea 9. HISTORY OF CVA - continue current plan of care Exam (Progress Note) - Constitutional Vitals: Period Temp Pulse Resp BP Sys/Pierce Pulse Ox Last 24 Hr 96.7 F-98.8 F 59-78 12-17 139-184/47-76 96-100 Exam: General: [Intubated, sedated but wakes and follows commands. ] [Appears comfortable.] HEENT: [Normocephalic, atraumatic. Mucous membranes moist. No jaundice noted. Conjunctiva moist and clear, sclerae anicteric] Neck: Difficult to assess for JVD due to habitus. No obvious JVD is noted, no thyromegaly or lymphadenopathy noted. No carotid bruit appreciated Cardiac: [Regular rate and rhythm.] [No obvious murmur rub or gallop.] Lungs: [Rhonchi throughout, no wheezing or rales. Symmetrical chest wall movements noted. Abdomen: Soft, bowel sounds normoactive. Nontender and nondistended. No abdominal bruit or thrill noted. No masses noted. Musculoskeletal: No fluid collection. Decreased range of motion is noted. Extremities: No clubbing, cyanosis noted. [ No edema noted.] Upper extremity pulses 2+. Lower extremity pulses 2+. Capillary refill less than 3 seconds. Skin: No unusual lesions or rashes. No skin breakdown appreciated. Neuro: Awake easily and follows commands. No essential tremor is appreciated. Result/EKG - Labs CBC & BMP: 02/21/17 04:00 02/21/17 06:50 Lab Results: I have reviewed the past 24 hour labs Labs: Laboratory Results - last 24 hr 02/20/17 02/20/17 02/20/17 08:30 11:26 17:54 WBC RBC Hgb Hct MCV MCH MCHC RDW Plt Count MPV Neut % (Auto) Lymph % (Auto) Simpson % (Auto) Eos % (Auto) Baso % (Auto) Neut # (Auto) Lymph # (Auto) Simpson # (Auto) Eos # (Auto) Baso # (Auto) Total Counted Immature Gran % Nucleated RBC % Immature Gran # Segmented Neutrophils Band Neutrophils Lymphocytes Monocytes Nucleated RBCs # Platelet Estimate Hypochromasia ABG pH ABG pCO2 ABG pO2 ABG HCO3 ABG Total CO2 ABG O2 Saturation ABG Base Excess Sodium Potassium Chloride Carbon Dioxide Anion Gap BUN Creatinine GFR Calculation BUN/Creatinine Ratio Glucose POC Glucose 262 H 245 H Calculated Osmolality Calcium Phosphorus Magnesium Total Creatine Kinase 229 CK-MB (CK-2) 11.0 H CK and CKMB Interp 4.8 Troponin I 0.777 H D Prealbumin 02/20/17 02/21/17 02/21/17 23:45 04:00 04:09 WBC 12.2 H D RBC 4.04 Hgb 13.0 L Hct 39.4 L MCV 97.5 MCH 32 MCHC 33.0 RDW 13.2 Plt Count 124 L D MPV 13.3 H Neut % (Auto) 90.9 H Lymph % (Auto) 3.7 L Simpson % (Auto) 4.1 Eos % (Auto) 0.0 Baso % (Auto) 0.1 Neut # (Auto) 11.1 H Lymph # (Auto) 0.5 L Simpson # (Auto) 0.5 Eos # (Auto) 0.0 Baso # (Auto) 0.0 Total Counted 100 Immature Gran % 1.2 Nucleated RBC % 0.0 Immature Gran # 0.14 Segmented Neutrophils 83 Band Neutrophils 3 Lymphocytes 11 L Monocytes 3 Nucleated RBCs # 0.00 Platelet Estimate Decreased Hypochromasia Slight ABG pH 7.408 ABG pCO2 38.8 ABG pO2 113.0 H ABG HCO3 24.4 ABG Total CO2 21.4 L ABG O2 Saturation 98.3 ABG Base Excess 0.0 Sodium Potassium Chloride Carbon Dioxide Anion Gap BUN Creatinine GFR Calculation BUN/Creatinine Ratio Glucose POC Glucose 230 H Calculated Osmolality Calcium Phosphorus Magnesium Total Creatine Kinase CK-MB (CK-2) CK and CKMB Interp Troponin I Prealbumin 02/21/17 02/21/17 02/21/17 06:06 06:50 06:53 WBC RBC Hgb Hct MCV MCH MCHC RDW Plt Count MPV Neut % (Auto) Lymph % (Auto) Simpson % (Auto) Eos % (Auto) Baso % (Auto) Neut # (Auto) Lymph # (Auto) Simpson # (Auto) Eos # (Auto) Baso # (Auto) Total Counted Immature Gran % Nucleated RBC % Immature Gran # Segmented Neutrophils Band Neutrophils Lymphocytes Monocytes Nucleated RBCs # Platelet Estimate Hypochromasia ABG pH ABG pCO2 ABG pO2 ABG HCO3 ABG Total CO2 ABG O2 Saturation ABG Base Excess Sodium 141 Potassium 4.5 Chloride 108 H Carbon Dioxide 24 Anion Gap 13.5 BUN 21 H Creatinine 1.20 GFR Calculation 99 BUN/Creatinine Ratio 17.00 Glucose 213 H POC Glucose 205 H Calculated Osmolality 289.3 Calcium 8.7 Phosphorus 2.9 Magnesium 2.4 Total Creatine Kinase CK-MB (CK-2) CK and CKMB Interp Troponin I Prealbumin 30.5 - EKG EKG results: interpreted by me EKG shows: sinus rhythm <Karol Hendrix - Last Filed: 02/21/17 19:04> Cardiology - PN: Subj Interval history: I have personally interviewed and evaluated the patient, reviewed the chart and discussed medical decision-making with Practitioner Fanny. I have read this note and agree with her documentation here in. Exam (Progress Note) - Constitutional Vitals: Period Temp Pulse Resp BP Sys/Pierce Pulse Ox Last 24 Hr 96.7 F-98.8 F 57-76 12-17 140-181/51-80 96-100 Result/EKG - Labs CBC & BMP: 02/21/17 04:00 02/21/17 06:50 Labs: Laboratory Results - last 24 hr 02/20/17 02/21/17 02/21/17 23:45 04:00 04:09 WBC 12.2 H D RBC 4.04 Hgb 13.0 L Hct 39.4 L MCV 97.5 MCH 32 MCHC 33.0 RDW 13.2 Plt Count 124 L D MPV 13.3 H Neut % (Auto) 90.9 H Lymph % (Auto) 3.7 L Simpson % (Auto) 4.1 Eos % (Auto) 0.0 Baso % (Auto) 0.1 Neut # (Auto) 11.1 H Lymph # (Auto) 0.5 L Simpson # (Auto) 0.5 Eos # (Auto) 0.0 Baso # (Auto) 0.0 Total Counted 100 Immature Gran % 1.2 Nucleated RBC % 0.0 Immature Gran # 0.14 Segmented Neutrophils 83 Band Neutrophils 3 Lymphocytes 11 L Monocytes 3 Nucleated RBCs # 0.00 Platelet Estimate Decreased Hypochromasia Slight ABG pH 7.408 ABG pCO2 38.8 ABG pO2 113.0 H ABG HCO3 24.4 ABG Total CO2 21.4 L ABG O2 Saturation 98.3 ABG Base Excess 0.0 Sodium Potassium Chloride Carbon Dioxide Anion Gap BUN Creatinine GFR Calculation BUN/Creatinine Ratio Glucose POC Glucose 230 H Calculated Osmolality Calcium Phosphorus Magnesium Prealbumin 02/21/17 02/21/17 02/21/17 06:06 06:50 06:53 WBC RBC Hgb Hct MCV MCH MCHC RDW Plt Count MPV Neut % (Auto) Lymph % (Auto) Simpson % (Auto) Eos % (Auto) Baso % (Auto) Neut # (Auto) Lymph # (Auto) Simpson # (Auto) Eos # (Auto) Baso # (Auto) Total Counted Immature Gran % Nucleated RBC % Immature Gran # Segmented Neutrophils Band Neutrophils Lymphocytes Monocytes Nucleated RBCs # Platelet Estimate Hypochromasia ABG pH ABG pCO2 ABG pO2 ABG HCO3 ABG Total CO2 ABG O2 Saturation ABG Base Excess Sodium 141 Potassium 4.5 Chloride 108 H Carbon Dioxide 24 Anion Gap 13.5 BUN 21 H Creatinine 1.20 GFR Calculation 99 BUN/Creatinine Ratio 17.00 Glucose 213 H POC Glucose 205 H Calculated Osmolality 289.3 Calcium 8.7 Phosphorus 2.9 Magnesium 2.4 Prealbumin 30.5 02/21/17 02/21/17 11:26 17:50 WBC RBC Hgb Hct MCV MCH MCHC RDW Plt Count MPV Neut % (Auto) Lymph % (Auto) Simpson % (Auto) Eos % (Auto) Baso % (Auto) Neut # (Auto) Lymph # (Auto) Simpson # (Auto) Eos # (Auto) Baso # (Auto) Total Counted Immature Gran % Nucleated RBC % Immature Gran # Segmented Neutrophils Band Neutrophils Lymphocytes Monocytes Nucleated RBCs # Platelet Estimate Hypochromasia ABG pH ABG pCO2 ABG pO2 ABG HCO3 ABG Total CO2 ABG O2 Saturation ABG Base Excess Sodium Potassium Chloride Carbon Dioxide Anion Gap BUN Creatinine GFR Calculation BUN/Creatinine Ratio Glucose POC Glucose 183 H 209 H Calculated Osmolality Calcium Phosphorus Magnesium Prealbumin
[2017-02-21] MEDS: cefTRIAXone 1,000 MG in SODIUM CHLORIDE 0.9% 100 ML IV SCH (13:47)
--- NOTE | 2017-02-21 14:03 | XRay Report ---
Referring Physician: Milton Bravo Exam: XR chest 1V portable Date: February 21, 2017 at 3:02 AM Reason: Shortness of breath Comparison: Chest one view portable February 20, 2017 Findings: An endotracheal tube and feeding tube are again in place. The cardiac silhouette is upper normal in size. There are mild perihilar and bibasilar opacities. This likely represents atelectasis and possibly mild pulmonary edema or pneumonia. No pneumothorax is identified, but there is minimal left pleural fluid. The osseous structures appear stable. Impression: There are mild perihilar and bibasilar opacities. There is improved aeration of the right upper and midlung zones, but the opacities at the right lower lung zone are slightly more prominent. Minimal left pleural fluid is also now seen. Of note, a chest PA lateral study is recommended to better evaluate the lana when clinically feasible. PROCEDURE INTERPRETED AT [facility], [place] DEPARTMENT OF RADIOLOGY Final Report Signed by: Dr. Solange Howell
--- NOTE | 2017-02-21 14:04 | ECHO Report ---
Mini, Milton 02/19/2017 Exam Date: 15:53 Referring Physician: Fiona Izquierdo Technologist: SUKUMAR Age: 71 Ht (in): 72 Wt (lb): 255 MExam Location: [facility] Gender: Echo [id number]: Acute resp. Failure, status asmathicusIndications: BP: / HR: 74 SinusRhythm: FairTechnical Quality: IMPRESSIONS Normal LV systolic function, ejection fraction 60%. Grade 1/4 diastolic dysfunction. Moderate concentric left ventricular hypertrophy. Trace tricuspid regurgitation. MEASUREMENTS (Male / Female) Normal Values 2D ECHO LV Diastolic Diameter PLAX 3.9 cm 4.2 - 5.9 / 3.9 - 5.3 cm LV Systolic Diameter PLAX 3.1 cm LV Fractional Shortening PLAX 20.4 % IVS Diastolic Thickness 1.8 cm 0.6 - 1.0 / 0.6 - 0.9 cm LVPW Diastolic Thickness 1.5 cm 0.6 - 1.0 / 0.6 - 0.9 cm RV Internal Dim ED PLAX 2.9 cm Aortic Root Diameter 2.7 cm LA Systolic Diameter LX 4.0 cm 3.0 - 4.0 / 2.7 - 3.8 cm FINDINGS Left Ventricle Moderate concentric left ventricular hypertrophy with diastolic dysfunction. Left ventricular ejection fraction is estimated at 55-60 %. Right Ventricle Normal right ventricular size. Right Atrium Normal right atrial size. Left Atrium Normal left atrial size. Mitral Valve Mild mitral valve sclerosis. Aortic Valve Mild aortic valve sclerosis without stenosis or regurgitation. Tricuspid Valve Morphologically normal tricuspid valve. Trace tricuspid valve regurgitation. Pulmonic Valve Pulmonic valve not well visualized. Pericardium No pericardial effusion. Aorta Normal size aortic root and proximal ascending aorta. Karol Hendrix MD (Electronically Signed) 21 Feb 2017 08:50Final Date:
[2017-02-21] MEDS: ATORVASTATIN 20 MG TABLET PO SCH (21:28)
[2017-02-21] MEDS: ENOXAPARIN 40 MG/0.4 ML SYRINGE SUBCUT SCH (21:28)
[2017-02-21] MEDS: ALFUZOSIN 10 MG TABLET PO SCH (21:28)
[2017-02-22] MEDS: INSULIN REGULAR 100 UNIT/ML SUBCUT SCH ×4 (00:24→18:00)
[2017-02-22] MEDS: DEXTROSE 5% NACL 0.45% 1,000 ML IV SCH ×2 (00:56→18:46)
[2017-02-22] MEDS: PROPOFOL 1,000 MG/100 ML BOTTLE IV SCH ×8 (01:51→23:02)
[2017-02-22 04:16] LABS: ABG Base Excess 3.2 MMOL/L (-2.5-2.5); ABG HCO3 27.3 MMOL/L (20-26); ABG Oxygen Saturation 99.1 % (95-100); ABG PCO2 43.7 MM HG (35-48); ABG PH 7.418 (7.35-7.45); ABG TCO2 24.9 MMOL/L (23-27); Allen Test Positive; Pt O2 Delivery Device Ventilator
[2017-02-22] MEDS: ALBUTEROL 2.5 MG/3 ML NEB RESP TX SCH ×6 (04:22→19:38)
[2017-02-22 06:39] LABS: Basophils % 0.1 % (0.0-0.8); Hematocrit 37.8 VOL% (42.0-52.0); Hemoglobin 12.5 GM/DL (14.0-18.0); Immature Granulocytes % 1.9 %; Immature Granulocytes Absolute 0.19 #; Lymphocytes # 0.6 10*3/uL (1.4-4.0); Lymphocytes % 5.4 % (21.2-54.2); Mean Corpuscular HGB Conc 33.1 GM/DL (32-36); Mean Corpuscular Hemoglobin 32 PG (27-34); Mean Corpuscular Volume 96.9 FL (87-102); Mean Platelet Volume 12.7 FL (9.6-12.0); Monocytes # 0.6 10*3/uL (0.11-0.8); Monocytes % 5.8 % (1.7-12.7); Neutrophils # 8.9 10*3/uL (1.4-7.4); Neutrophils % 86.8 % (38.7-73.9); Platelet Count 163 T/CUMM (130-400); Red Cell Distribution Width 13.6 % (9.3-17.3); White Blood Count 10.3 T/CUMM (4-12)
[2017-02-22 06:47] LABS: INR 0.9; PT Patient Result 9.5 SECS; Partial Thromboplastin Time 30.2 SECS (0-40)
--- NOTE | 2017-02-22 06:52 | XRay Report ---
Referring Physician: Milton Bravo Exam: XR chest 1V portable Date: February 22, 2017 at 2:53 AM Reason: Shortness of breath Comparison: Chest one view portable February 21, 2017 Findings: An endotracheal tube and feeding tube are again in place. The cardiac silhouette is upper normal in size. There are hazy opacities within the right lower lung zone and minimal scattered opacities within the left lower lung zone. This could represent pulmonary edema or pneumonia with atelectasis. No pneumothorax is identified, but minimal bilateral pleural fluid is suspected. The osseous structures appear stable. Impression: There is slight increased opacification and pleural fluid within the right lower lung zone. PROCEDURE INTERPRETED AT [facility] DEPARTMENT OF RADIOLOGY Final Report Signed by: Dr. Solange Howell
[2017-02-22 07:05] LABS: Calcium 8.8 MG/DL (8.5-10.1); Magnesium 2.5 MG/DL (1.8-2.4); Osmolality,Calculated 292.4 MOS/KG (273-304); Potassium 4.8 MMOL/L (3.5-5.1)
[2017-02-22 07:10] LABS: Albumin 2.8 G/DL (3.4-5.0); Bilirubin,Total 0.5 MG/DL (0.2-1.0); Calcium 8.8 MG/DL (8.5-10.1); Osmolality,Calculated 291.4 MOS/KG (273-304); Phosphorous 2.6 MG/DL (2.5-4.9); Potassium 4.9 MMOL/L (3.5-5.1); Total Protein 5.6 G/DL (6.4-8.3)
[2017-02-22 07:17] LABS: Hypochromasia Slight
--- NOTE | 2017-02-22 07:45 | Cardiology Progress Note ---
<Carri Escobedo E - Last Filed: 02/22/17 13:59> Assessment and Plan (1) Morbid obesity Status: Chronic Assessment and plan: SEE PLAN OF CARE LISTED BELOW Current Visit: Yes (2) Sleep disorder Status: Chronic Assessment and plan: SEE PLAN OF CARE LISTED BELOW Current Visit: Yes (3) Elevated troponin Status: Acute Assessment and plan: SEE PLAN OF CARE LISTED BELOW Current Visit: Yes (4) Renal insufficiency Status: Acute Assessment and plan: SEE PLAN OF CARE LISTED BELOW Current Visit: Yes (5) Acute respiratory failure Status: Acute Assessment and plan: SEE PLAN OF CARE LISTED BELOW Current Visit: Yes (6) COPD (chronic obstructive pulmonary disease) Status: Chronic Assessment and plan: SEE PLAN OF CARE LISTED BELOW Current Visit: Yes (7) Diabetes mellitus Status: Chronic Assessment and plan: SEE PLAN OF CARE LISTED BELOW Current Visit: Yes (8) History of CVA (cerebrovascular accident) Status: Chronic Assessment and plan: SEE PLAN OF CARE LISTED BELOW Current Visit: Yes (9) Hyperlipidemia Status: Chronic Assessment and plan: SEE PLAN OF CARE LISTED BELOW Current Visit: Yes (10) Hypertension Status: Chronic Assessment and plan: SEE PLAN OF CARE LISTED BELOW Current Visit: Yes Cardiology - PN: Subj Interval history: [facility] SCRIBE: DR. HENDRIX (NEW) PCP: DR. CASTRO Patient is being seen in the ICU. The majority of this information is taken from medical staff and medical records as the patient is intubated without family at the bedside. SUMMARY: Mr. Morse, 71BM, has history of: diabetes, hypertension, dyslipidemia, CVA (June 2015 affecting right side), obesity, COPD and asthma. Patient was received in transfer from [facility] for further evaluation of acute respiratory distress February 19, 2017 after expressing respiratory distress requiring intubation. He was significantly hypertensive. Initially, EKG was abnormal but this has since normalized. Cardiac biomarkers are mildly abnormal in the setting of underlying renal insufficiency. Chest x- ray abnormal, pulmonary following. FEBRUARY 20, 2017: It appears the patient had a primary pulmonary event with possible secondary cardiac ischemia and strain. Overnight, chest x-ray has improved dramatically. Continue to treat his acute pulmonary issues and, prior to discharge, he may benefit from cardiac catheterization depending on clinical evolution. Troponins are flat. Venous Dopplers bilateral lower extremities negative. He is hypomagnesemic and we will treat this morning. No arrhythmias noted. Wakes and obeys commands. Creatinine has improved from 1.7 to 1.2 this morning. Continues to take aspirin, atorvastatin, beta blockade and Lovenox. Avoiding JULIO inhibitors for fear of worsening his renal insufficiency. Today, will increase his beta-soham for better blood pressure control. FEBRUARY 21, 2017: Overnight, no significant change. He appears to be very comfortable on the ventilator. Systolic blood pressures averaging around 170. Creatinine is 1.2 this morning. JULIO inhibitors have been avoided for fear of worsening his renal insufficiency. I will add Norvasc this morning for better control titrating up as we need to. No arrhythmias noted. Platelet count has dropped overnight to 124. Lovenox was decreased to lower dose yesterday as this is not considered acute coronary syndrome. Eventually, once patient's condition has stabilized, he may benefit from cardiac catheterization. FEBRUARY 22, 2017: Mr. Morse remains intubated, sedated but does follow commands appropriately. General edema noted. Systolic blood pressure still averaging 160s and 170s. Yesterday, Norvasc 5 mg was added. Will increase to 10 mg daily. He will get an additional 5 mg today as he has already had his 5 mg tablet. Labs are stable. White blood cell count has normalized. At this point , will continue treating his underlying pulmonary problems. Eventually, patient may be a candidate for cardiac catheterization once his multiple comorbidities improve. ASSESSMENT/PLAN: 1. ACUTE RESPIRATORY FAILURE - currently intubated but follows commands appropriately. Appears to be a primary pulmonary event with possible secondary cardiac ischemia and strain. Pulmonary is following. 2. ELEVATED TROPONIN - cardiac biomarkers flat. May benefit from C prior to discharge. 3. HYPERTENSION -increasing Norvasc today. 4. DYSLIPIDEMIA - continue Atorvastatin. LDL 78. 5. DIABETES - holding Metformin. Sliding scale insulin 6. RENAL INSUFFICIENCY - resolved. Creatinine has normalized. 7. MORBID OBESITY - dietary counseling prior to discharge 8. SUSPECTED SLEEP APNEA - will need outpatient sleep study eventually. Given his habitus, I strongly suspect he has obstructive sleep apnea 9. HISTORY OF CVA - continue current plan of care Exam (Progress Note) - Constitutional Vitals: Period Temp Pulse Resp BP Sys/Pierce Pulse Ox Last 24 Hr 97.4 F-98.8 F 52-82 12-22 150-193/58-80 98-100 Exam: General: [Intubated, sedated but wakes and follows commands. ] [Appears comfortable.] HEENT: [Normocephalic, atraumatic. Mucous membranes moist. No jaundice noted. Conjunctiva moist and clear, sclerae anicteric] Neck: Difficult to assess for JVD due to habitus. No obvious JVD is noted, no thyromegaly or lymphadenopathy noted. No carotid bruit appreciated Cardiac: [Regular rate and rhythm.] [No obvious murmur rub or gallop.] Lungs: [Rhonchi throughout, no wheezing or rales. Symmetrical chest wall movements noted. Abdomen: Soft, bowel sounds normoactive. Nontender and nondistended. No abdominal bruit or thrill noted. No masses noted. Musculoskeletal: No fluid collection. Decreased range of motion is noted. Extremities: No clubbing, cyanosis noted. [General edema noted. ] Upper extremity pulses 2+. Lower extremity pulses 2+. Capillary refill less than 3 seconds. Skin: No unusual lesions or rashes. No skin breakdown appreciated. Neuro: Awake easily and follows commands. No essential tremor is appreciated. Result/EKG - Labs CBC & BMP: 02/22/17 06:01 02/22/17 06:01 Lab Results: I have reviewed the past 24 hour labs Labs: Laboratory Results - last 24 hr 02/21/17 02/21/17 02/21/17 06:50 06:53 11:26 WBC RBC Hgb Hct MCV MCH MCHC RDW Plt Count MPV Neut % (Auto) Lymph % (Auto) [place] % (Auto) Eos % (Auto) Baso % (Auto) Neut # (Auto) Lymph # (Auto) [place] # (Auto) Eos # (Auto) Baso # (Auto) Immature Gran % Nucleated RBC % Immature Gran # Nucleated RBCs # Hypochromasia INR PT Patient/Control Mix Circ Anticoag PTT ABG pH ABG pCO2 ABG pO2 ABG HCO3 ABG Total CO2 ABG O2 Saturation ABG Base Excess FiO2 Sodium 141 Potassium 4.5 Chloride 108 H Carbon Dioxide 24 Anion Gap 13.5 BUN 21 H Creatinine 1.20 GFR Calculation 99 BUN/Creatinine Ratio 17.00 Glucose 213 H POC Glucose 183 H Calculated Osmolality 289.3 Calcium 8.7 Phosphorus 2.9 Magnesium 2.4 Total Bilirubin AST ALT Alkaline Phosphatase Total Protein Albumin Globulin Albumin/Globulin Ratio Prealbumin 30.5 02/21/17 02/22/1717 17:50 00:19 03:55 WBC RBC Hgb Hct MCV MCH MCHC RDW Plt Count MPV Neut % (Auto) Lymph % (Auto) [place] % (Auto) Eos % (Auto) Baso % (Auto) Neut # (Auto) Lymph # (Auto) [place] # (Auto) Eos # (Auto) Baso # (Auto) Immature Gran % Nucleated RBC % Immature Gran # Nucleated RBCs # Hypochromasia INR PT Patient/Control Mix Circ Anticoag PTT ABG pH 7.418 ABG pCO2 43.7 ABG pO2 150.0 H ABG HCO3 27.3 H ABG Total CO2 24.9 ABG O2 Saturation 99.1 ABG Base Excess 3.2 H FiO2 50.00 Sodium Potassium Chloride Carbon Dioxide Anion Gap BUN Creatinine GFR Calculation BUN/Creatinine Ratio Glucose POC Glucose 209 H 244 H Calculated Osmolality Calcium Phosphorus Magnesium Total Bilirubin AST ALT Alkaline Phosphatase Total Protein Albumin Globulin Albumin/Globulin Ratio Prealbumin 02/22/17 02/22/17 02/22/17 04:44 06:01 06:01 WBC 10.3 RBC 3.90 Hgb 12.5 L Hct 37.8 L MCV 96.9 MCH 32 MCHC 33.1 RDW 13.6 Plt Count 163 D MPV 12.7 H Neut % (Auto) 86.8 H Lymph % (Auto) 5.4 L [place] % (Auto) 5.8 Eos % (Auto) 0.0 Baso % (Auto) 0.1 Neut # (Auto) 8.9 H Lymph # (Auto) 0.6 L [place] # (Auto) 0.6 Eos # (Auto) 0.0 Baso # (Auto) 0.0 Immature Gran % 1.9 Nucleated RBC % 0.0 Immature Gran # 0.19 Nucleated RBCs # 0.00 Hypochromasia Slight INR PT Patient/Control Mix Circ Anticoag PTT ABG pH ABG pCO2 ABG pO2 ABG HCO3 ABG Total CO2 ABG O2 Saturation ABG Base Excess FiO2 Sodium 140 Potassium 4.8 Chloride 104 Carbon Dioxide 28 Anion Gap 12.8 BUN 23 H Creatinine 1.10 GFR Calculation 110 BUN/Creatinine Ratio 20.00 Glucose 271 H POC Glucose 285 H Calculated Osmolality 292.4 Calcium 8.8 Phosphorus Magnesium 2.5 H Total Bilirubin AST ALT Alkaline Phosphatase Total Protein Albumin Globulin Albumin/Globulin Ratio Prealbumin 02/22/17 02/22/17 06:01 06:01 WBC RBC Hgb Hct MCV MCH MCHC RDW Plt Count MPV Neut % (Auto) Lymph % (Auto) [place] % (Auto) Eos % (Auto) Baso % (Auto) Neut # (Auto) Lymph # (Auto) [place] # (Auto) Eos # (Auto) Baso # (Auto) Immature Gran % Nucleated RBC % Immature Gran # Nucleated RBCs # Hypochromasia INR 0.9 PT Patient/Control Mix 9.5 Circ Anticoag PTT 30.2 ABG pH ABG pCO2 ABG pO2 ABG HCO3 ABG Total CO2 ABG O2 Saturation ABG Base Excess FiO2 Sodium 140 Potassium 4.9 Chloride 105 Carbon Dioxide 28 Anion Gap 11.9 BUN 22 H Creatinine 1.10 GFR Calculation 110 BUN/Creatinine Ratio 20.00 Glucose 273 H POC Glucose Calculated Osmolality 291.4 Calcium 8.8 Phosphorus 2.6 Magnesium Total Bilirubin 0.50 AST 151 H ALT 242 H Alkaline Phosphatase 61 Total Protein 5.6 L Albumin 2.8 L Globulin 2.8 Albumin/Globulin Ratio 1.0 L Prealbumin - EKG EKG results: interpreted by me EKG shows: sinus rhythm <Karol Hendrix - Last Filed: 02/22/17 19:52> Cardiology - PN: Subj Interval history: I have personally interviewed and evaluated the patient, reviewed the chart and discussed medical decision-making with Practitioner Fanny. I have read this note and agree with her documentation here in. Depending on his recovery, we can consider further risk stratification with either stress testing or cardiac catheterization depending on his clinical evolution once his other acute issues resolve. Exam (Progress Note) - Constitutional Vitals: Period Temp Pulse Resp BP Sys/Pierce Pulse Ox Last 24 Hr 97.4 F-98.8 F 52-94 10-28 152-198/53-85 94-100 Result/EKG - Labs CBC & BMP: 02/22/17 06:01 02/22/17 06:01 Labs: Laboratory Results - last 24 hr 02/22/17 02/22/17 02/22/17 00:19 03:55 04:44 WBC RBC Hgb Hct MCV MCH MCHC RDW Plt Count MPV Neut % (Auto) Lymph % (Auto) [place] % (Auto) Eos % (Auto) Baso % (Auto) Neut # (Auto) Lymph # (Auto) [place] # (Auto) Eos # (Auto) Baso # (Auto) Immature Gran % Nucleated RBC % Immature Gran # Nucleated RBCs # Hypochromasia INR PT Patient/Control Mix Circ Anticoag PTT ABG pH 7.418 ABG pCO2 43.7 ABG pO2 150.0 H ABG HCO3 27.3 H ABG Total CO2 24.9 ABG O2 Saturation 99.1 ABG Base Excess 3.2 H FiO2 50.00 Sodium Potassium Chloride Carbon Dioxide Anion Gap BUN Creatinine GFR Calculation BUN/Creatinine Ratio Glucose POC Glucose 244 H 285 H Calculated Osmolality Calcium Phosphorus Magnesium Total Bilirubin AST ALT Alkaline Phosphatase Total Protein Albumin Globulin Albumin/Globulin Ratio 02/22/17 02/22/17 02/22/17 06:01 06:01 06:01 WBC 10.3 RBC 3.90 Hgb 12.5 L Hct 37.8 L MCV 96.9 MCH 32 MCHC 33.1 RDW 13.6 Plt Count 163 D MPV 12.7 H Neut % (Auto) 86.8 H Lymph % (Auto) 5.4 L [place] % (Auto) 5.8 Eos % (Auto) 0.0 Baso % (Auto) 0.1 Neut # (Auto) 8.9 H Lymph # (Auto) 0.6 L [place] # (Auto) 0.6 Eos # (Auto) 0.0 Baso # (Auto) 0.0 Immature Gran % 1.9 Nucleated RBC % 0.0 Immature Gran # 0.19 Nucleated RBCs # 0.00 Hypochromasia Slight INR PT Patient/Control Mix Circ Anticoag PTT ABG pH ABG pCO2 ABG pO2 ABG HCO3 ABG Total CO2 ABG O2 Saturation ABG Base Excess FiO2 Sodium 140 140 Potassium 4.8 4.9 Chloride 104 105 Carbon Dioxide 28 28 Anion Gap 12.8 11.9 BUN 23 H 22 H Creatinine 1.10 1.10 GFR Calculation 110 110 BUN/Creatinine Ratio 20.00 20.00 Glucose 271 H 273 H POC Glucose Calculated Osmolality 292.4 291.4 Calcium 8.8 8.8 Phosphorus 2.6 Magnesium 2.5 H Total Bilirubin 0.50 AST 151 H ALT 242 H Alkaline Phosphatase 61 Total Protein 5.6 L Albumin 2.8 L Globulin 2.8 Albumin/Globulin Ratio 1.0 L 02/22/17 02/22/17 02/22/17 06:01 11:51 17:30 WBC RBC Hgb Hct MCV MCH MCHC RDW Plt Count MPV Neut % (Auto) Lymph % (Auto) [place] % (Auto) Eos % (Auto) Baso % (Auto) Neut # (Auto) Lymph # (Auto) [place] # (Auto) Eos # (Auto) Baso # (Auto) Immature Gran % Nucleated RBC % Immature Gran # Nucleated RBCs # Hypochromasia INR 0.9 PT Patient/Control Mix 9.5 Circ Anticoag PTT 30.2 ABG pH ABG pCO2 ABG pO2 ABG HCO3 ABG Total CO2 ABG O2 Saturation ABG Base Excess FiO2 Sodium Potassium Chloride Carbon Dioxide Anion Gap BUN Creatinine GFR Calculation BUN/Creatinine Ratio Glucose POC Glucose 205 H 242 H Calculated Osmolality Calcium Phosphorus Magnesium Total Bilirubin AST ALT Alkaline Phosphatase Total Protein Albumin Globulin Albumin/Globulin Ratio
[2017-02-22] MEDS: methylPREDNISolone SOD SUC 125 MG/2 ML VIAL IV SCH (08:05)
--- NOTE | 2017-02-22 08:39 | Pulmonology Progress Note ---
Pulmonary - PN: Subj Interval history: Patient is a 71-year-old black man that has a component of COPD and presented with acute exacerbation and respiratory failure. He is intubated on the ventilator now. He had right upper lobe atelectasis but that has improved. He does seem to be relatively comfortable on the ventilator. His oxygenation has improved nicely and he is starting to do CPAP trials. His lungs sound better and he does look like he could wean in the next few days. Exam (Progress Note) - Constitutional Vitals: Period Temp Pulse Resp BP Sys/Pierce Pulse Ox Last 24 Hr 97.4 F-98.8 F 52-82 12-22 150-193/58-80 98-100 Exam: General appearance: normal weight, no acute distress (He is sedated and comfortable on the ventilator. He does respond okay. He is requiring some sedation.) - Head Head exam: Present: normal inspection, normocephalic - Eye Eye exam: Present: EOMI. Absent: scleral icterus Pupils: Present: THIEN - ENT ENT exam: Present: normal exam, other (The ET tube is in good position) - Neck Neck exam: Present: normal inspection. Absent: lymphadenopathy, thyromegaly - Respiratory Respiratory exam: Present: He has good breath sounds bilaterally and he is moving air better. He has very minimal rhonchi present. - Cardiovascular Cardiovascular exam: Present: regular rate and rhythm. Absent: gallop, systolic murmur - GI/Abdominal GI/Abdominal exam: Present: hypoactive bowel sounds, soft. Absent: distended, organomegaly, tenderness - Extremities Exam Extremities exam: Absent: calf tenderness, edema - Neurological Exam Neurological exam: Present: other (Patient is mainly sedated at present) - Skin Skin exam: Present: warm, dry Results - Labs CBC & BMP: 02/22/17 06:01 02/22/17 06:01 Labs: PO2 is 150 with a PCO2 of 43 and a pH of 7.41 - Diagnostic Findings Procedure: Chest x-ray: image reviewed by me, report reviewed by me (Chest x- ray shows minimal changes in the bases.) Assessment and Plan (1) Acute respiratory failure Status: Acute Assessment and plan: Patient apparently had respiratory distress and is now on the ventilator. He reportedly has a history of COPD. His lungs sound better and his oxygenation has improved. Will continue with weaning trials. Current Visit: Yes (2) Diabetes mellitus Status: Chronic Assessment and plan: His glucose is 295 this morning. He is getting insulin. Current Visit: Yes (3) Hypertension Status: Chronic Assessment and plan: Patient has a systolic blood pressure around 170. He will continue her present medicines. Current Visit: Yes (4) COPD (chronic obstructive pulmonary disease) Status: Chronic Assessment and plan: Patient reportedly has COPD and will continue with bronchodilator therapy. His lungs sound better today. His oxygenation is improving. Current Visit: Yes (5) History of CVA (cerebrovascular accident) Status: Chronic Assessment and plan: The patient has a remote history of a CVA but had no residual defects. He responds fairly well. Current Visit: Yes (6) Elevated troponin Status: Acute Assessment and plan: Patient has positive cardiac enzymes and is being evaluated by cardiology. He appears to be hemodynamically stable. Current Visit: Yes
[2017-02-22] MEDS: PANTOPRAZOLE 40 MG VIAL IV SCH (09:20)
[2017-02-22] MEDS: hydrALAZINE 20 MG/1 ML VIAL IV PRN ×2 (09:20→20:35)
[2017-02-22] MEDS: amLODIPine 5 MG TABLET PO SCH (09:27)
[2017-02-22] MEDS: ASPIRIN CHEW 81 MG TABLET PO SCH (09:27)
[2017-02-22] MEDS: METOPROLOL TARTRATE 50 MG TABLET PO SCH ×2 (09:27→20:34)
[2017-02-22] MEDS ORDERED: hydrALAZINE 20 MG/1 ML VIAL IV ONE (12:45)
[2017-02-22] MEDS: cefTRIAXone 1,000 MG in SODIUM CHLORIDE 0.9% 100 ML IV SCH (13:15)
--- NOTE | 2017-02-22 14:49 | Hospitalist Progress Note ---
Hospitalist: Subjective Interval history: Patient is a good urine output overnight. He has been tolerating CPAP trials today. He has not had any fever. Tolerating tube feeds. Exam - Constitutional Vitals: Period Temp Pulse Resp BP Sys/Pierce Pulse Ox Last 24 Hr 97.4 F-98.8 F 52-89 12-28 155-198/53-85 94-100 Exam: Intubated and sedated on the vent RRR no M CTAB nonlabored Soft, NT, ND, +BS Warm no c/c/trace to +1 edema diffusely Results - Labs CBC & BMP: 02/22/17 06:01 02/22/17 06:01 - Impressions #1. Acute hypoxic and hypercarbic respiratory failure suspected due to right upper lobe MRSA and gram-negative jevon pneumonia and acute COPD exacerbation. - Improving #2. Accelerated hypertension-blood pressure now much better controlled. #3. Diabetes mellitus type 2 controlled with hemoglobin A1c of 6.6 #4. Hypernatremia and hyperchloremia likely due to dehydration-resolved #5. Acute kidney injury on chronic kidney disease stage III-much improved. I suspect the patient is at baseline. #6. Leukocytosis-possibly steroid-induced #7. History of DVT #8. Thrombocytopenia due to pseudothrombocytopenia-resolved Cont management in ICU as patient is currently critical requiring vent support. Pulmonology following for vent management. Weaning as tolerated Discontinue Rocephin and start IV vancomycin and Merrem. Follow-up sputum culture and blood cultures Urine culture was negative Bronchodilators, pulmonary toileting, continue to wean IV steroids to q24h today Continue insulin sliding scale with Accu-Cheks every 6h. I suspect blood sugars will improve once off IV steroids. Urine drug screen reviewed and is positive for benzos TSH normal d-dimer negative Repeat chest x-ray shows improvement Serial cardiac markers shows that the troponin is trending down. Cardiology following. Possible catheterization prior to discharge Hydralazine 10 mg IV every 6 hours as needed for systolic blood pressure greater than 170 or diastolic blood pressure of 110 or greater Change Protonix to per feeding tube Continue tube feeds per nutrition recommendations per protocol SCDs for DVT prophylaxis at this time Discussed with nurse. All questions answered.
[2017-02-22] MEDS ORDERED: methylPREDNISolone SOD SUC 40 MG/1 ML VIAL IV SCH ×2 (15:00→20:00)
[2017-02-22] MEDS: MEROPENEM 1,000 MG in SODIUM CHLORIDE 0.9% 100 ML IV SCH ×2 (17:51→23:01)
[2017-02-22] MEDS: ALBUMIN 5% 25 GM in PREMIX 1 EACH IV SCH ×2 (17:52→22:32)
[2017-02-22] MEDS: VANCOMYCIN INJ 1,500 MG in SODIUM CHLORIDE 0.9% 500 ML IV SCH (18:00)
[2017-02-22] MEDS: ALFUZOSIN 10 MG TABLET PO SCH (20:34)
[2017-02-22] MEDS: ATORVASTATIN 20 MG TABLET PO SCH (20:34)
[2017-02-22] MEDS: ENOXAPARIN 40 MG/0.4 ML SYRINGE SUBCUT SCH (20:34)
[2017-02-22] MEDS: MORPHINE 2 MG/1 ML SYRINGE IV PRN (20:36)
[2017-02-23] MEDS: ALBUTEROL 2.5 MG/3 ML NEB RESP TX SCH ×7 (00:12→22:51)
[2017-02-23] MEDS: INSULIN REGULAR 100 UNIT/ML SUBCUT SCH ×5 (00:16→23:40)
[2017-02-23] MEDS: PROPOFOL 1,000 MG/100 ML BOTTLE IV SCH ×3 (01:13→06:36)
[2017-02-23] MEDS: VANCOMYCIN INJ 1,500 MG in SODIUM CHLORIDE 0.9% 500 ML IV SCH (04:24)
[2017-02-23] MEDS: hydrALAZINE 20 MG/1 ML VIAL IV PRN ×4 (04:25→21:03)
[2017-02-23 04:48] LABS: Calcium 8.7 MG/DL (8.5-10.1); Magnesium 2.5 MG/DL (1.8-2.4); Osmolality,Calculated 291.3 MOS/KG (273-304); Potassium 4.1 MMOL/L (3.5-5.1)
[2017-02-23] MEDS: ALBUMIN 5% 25 GM in PREMIX 1 EACH IV SCH (06:36)
[2017-02-23 07:21] LABS: Basophils % 0.2 % (0.0-0.8); Eosinophils % 0.1 % (0.00-10.9); Hematocrit 38.5 VOL% (42.0-52.0); Hemoglobin 12.5 GM/DL (14.0-18.0); Immature Granulocytes % 4.3 %; Immature Granulocytes Absolute 0.41 #; Lymphocytes # 1.3 10*3/uL (1.4-4.0); Lymphocytes % 13.1 % (21.2-54.2); Mean Corpuscular HGB Conc 32.5 GM/DL (32-36); Mean Corpuscular Hemoglobin 32 PG (27-34); Mean Corpuscular Volume 97.2 FL (87-102); Mean Platelet Volume 13.2 FL (9.6-12.0); Monocytes # 0.7 10*3/uL (0.11-0.8); Monocytes % 7.3 % (1.7-12.7); Neutrophils # 7.2 10*3/uL (1.4-7.4); Platelet Count 134 T/CUMM (130-400); Red Blood Count 3.96 MC/CUMM (3.8-5.5); Red Cell Distribution Width 13.7 % (9.3-17.3); White Blood Count 9.5 T/CUMM (4-12)
[2017-02-23] MEDS: MEROPENEM 1,000 MG in SODIUM CHLORIDE 0.9% 100 ML IV SCH ×3 (08:04→23:45)
--- NOTE | 2017-02-23 08:15 | Hospitalist Progress Note ---
Hospitalist: Subjective Interval history: Pt extubated this am. Denies any pain. Satting well on RA. Pt refusing to take medication. Exam - Constitutional Vitals: Period Temp Pulse Resp BP Sys/Pierce Pulse Ox Last 24 Hr 97 F-98.8 F 55-94 10-28 141-198/53-85 94-100 Exam: Agitated, Awake, alert RRR no M CTAB nonlabored Soft, NT, ND, +BS Warm no c/c/trace edema Results - Labs CBC & BMP: 02/23/17 06:41 02/23/17 04:07 - Impressions #1. Acute hypoxic and hypercarbic respiratory failure suspected due to right upper lobe MRSA and gram-negative jevon x2 pneumonia and acute COPD exacerbation. -Improving - Pulmonology following for vent management. Weaning as tolerated - Discontinued Rocephin. Cont IV vancomycin and Merrem. Follow-up sputum culture and blood cultures - Bronchodilators, pulmonary toileting, continue to wean IV steroids to oral today and continue to taper - Repeat chest x-ray shows improvement - d-dimer negative #2. Accelerated hypertension-blood pressure now much better controlled. - Cont current therapy - Hydralazine 10 mg IV every 6 hours as needed for systolic blood pressure greater than 170 or diastolic blood pressure of 110 or greater - TSH normal #3. Diabetes mellitus type 2 controlled with hemoglobin A1c of 6.6 - Continue insulin sliding scale with Accu-Cheks every 6h. I suspect blood sugars will improve since weaning off steroids. Schedule insulin. Adjust as clinically indicated #4. Hypernatremia and hyperchloremia likely due to dehydration-resolved #5. Acute kidney injury on chronic kidney disease stage III-much improved. I suspect the patient is at baseline. #6. Leukocytosis-possibly steroid-induced. Resolved. - Urine culture was negative #7. History of DVT #8. Thrombocytopenia due to pseudothrombocytopenia-resolved #9. Elevated troponin - Serial cardiac markers shows that the troponin is trending down. Cardiology following. Possible catheterization prior to discharge Cont management in ICU as patient is currently critical requiring vent support. GI/DVT prophylaxis - Protonix/Lovenox Continue tube feeds per nutrition recommendations per protocol Discussed with nurse, pt and . All questions answered. I will be away several days. One of my associates will follow in my absence. - Diagnostic Findings Procedure: Chest x-ray: report reviewed by me (02/22: There is slight increased opacification and pleural fluid)
[2017-02-23] MEDS: ASPIRIN CHEW 81 MG TABLET PO SCH (08:37)
[2017-02-23] MEDS: PANTOPRAZOLE 40 MG TABLET PO SCH (08:38)
[2017-02-23] MEDS: amLODIPine 5 MG TABLET PO SCH (08:38)
[2017-02-23] MEDS: predniSONE 20 MG TABLET PO SCH (08:38)
[2017-02-23] MEDS: METOPROLOL TARTRATE 50 MG TABLET PO SCH ×3 (08:38→20:08)
--- NOTE | 2017-02-23 09:43 | Cardiology Progress Note ---
Assessment and Plan (1) Acute respiratory failure Status: Acute Current Visit: Yes (2) Diabetes mellitus Status: Chronic Current Visit: Yes (3) Hypertension Status: Chronic Current Visit: Yes (4) COPD (chronic obstructive pulmonary disease) Status: Chronic Current Visit: Yes (5) Hyperlipidemia Status: Chronic Current Visit: Yes (6) History of CVA (cerebrovascular accident) Status: Chronic Current Visit: Yes (7) Morbid obesity Status: Chronic Current Visit: Yes (8) Sleep disorder Status: Chronic Current Visit: Yes (9) Elevated troponin Status: Acute Current Visit: Yes (10) Renal insufficiency Status: Resolved Current Visit: Yes Cardiology - PN: Subj Interval history: MEDICAL RESEARCH ASSISTANT: DR. MERIDA (NEW) PCP: DR. CASTRO SUMMARY: Mr. Morse, 71BM, has history of: diabetes, hypertension, dyslipidemia, CVA (June 2015 affecting right side), obesity, COPD and asthma. Patient was received in transfer from [facility] for further evaluation of acute respiratory distress February 19, 2017 after experiencing respiratory distress requiring intubation. He was hypoxic. He was significantly hypertensive. Initially, EKG was abnormal but this has since normalized. Cardiac biomarkers are mildly abnormal in the setting of underlying renal insufficiency. Chest x-ray abnormal, pulmonary following. FEBRUARY 20, 2017: It appears the patient had a primary pulmonary event with possible secondary cardiac ischemia and strain. Overnight, chest x-ray has improved dramatically. Continue to treat his acute pulmonary issues and, prior to discharge, he may benefit from cardiac catheterization depending on clinical evolution. Troponins are flat. Venous Dopplers bilateral lower extremities negative. He is hypomagnesemic and we will treat this morning. No arrhythmias noted. Wakes and obeys commands. Creatinine has improved from 1.7 to 1.2 this morning. Continues to take aspirin, atorvastatin, beta blockade and Lovenox. Avoiding JULIO inhibitors for fear of worsening his renal insufficiency. Today, will increase his beta-soham for better blood pressure control. FEBRUARY 21, 2017: Overnight, no significant change. He appears to be very comfortable on the ventilator. Systolic blood pressures averaging around 170. Creatinine is 1.2 this morning. JULIO inhibitors have been avoided for fear of worsening his renal insufficiency. I will add Norvasc this morning for better control titrating up as we need to. No arrhythmias noted. Platelet count has dropped overnight to 124. Lovenox was decreased to lower dose yesterday as this is not considered acute coronary syndrome. Eventually, once patient's condition has stabilized, he may benefit from cardiac catheterization. FEBRUARY 22, 2017: Mr. Morse remains intubated, sedated but does follow commands appropriately. General edema noted. Systolic blood pressure still averaging 160s and 170s. Yesterday, Norvasc 5 mg was added. Will increase to 10 mg daily. He will get an additional 5 mg today as he has already had his 5 mg tablet. Labs are stable. White blood cell count has normalized. At this point , will continue treating his underlying pulmonary problems. Eventually, patient may be a candidate for cardiac catheterization once his multiple comorbidities improve. February 23, 2017: He was extubated this morning. He denies any chest pain or shortness of breath. His mentation seems a little slow. He continues to be hypertensive but overall this is improving. ASSESSMENT/PLAN: 1. ACUTE RESPIRATORY FAILURE -he is now extubated and this is improving. Appears to be a primary pulmonary event with possible secondary cardiac ischemia and strain. Pulmonary is following. 2. ELEVATED TROPONIN -these were mildly elevated in the setting of hypoxia and hypertension. At some point prior to discharge depending on his clinical evolution, further risk stratification with either stress testing or cardiac catheterization as clinically warranted can be considered. 3. HYPERTENSION -increasing metoprolol today. It will take approximately 5 days to reach the maximum benefit of the Norvasc increased from yesterday. 4. DYSLIPIDEMIA - continue Atorvastatin. LDL 78. 5. DIABETES - holding Metformin. Sliding scale insulin 6. RENAL INSUFFICIENCY - resolved. Creatinine has normalized. 7. MORBID OBESITY - dietary counseling prior to discharge 8. SUSPECTED SLEEP APNEA - will need outpatient sleep study eventually. Given his habitus, I strongly suspect he has obstructive sleep apnea 9. HISTORY OF CVA - continue current plan of care Exam (Progress Note) - Constitutional Vitals: Period Temp Pulse Resp BP Sys/Pierce Pulse Ox Last 24 Hr 97 F-98.8 F 55-95 10-28 141-198/53-85 94-100 Exam: General appearance: Obese, no acute distress - Head Head exam: Present: normal inspection, normocephalic, atraumatic. Absent: hematoma, laceration - Eye Eye exam: Present: EOMI. Absent: conjunctival injection, nystagmus, periorbital swelling, scleral icterus, laceration to eyelids Pupils: Present: THIEN. Absent: constricted, dilated, fixed, irregular, unequal - ENT ENT exam: Present: normal exam, normal external ear exam - Neck Neck exam: Present: Exam limited by habitus, overall normal inspection. Absent : lymphadenopathy, meningismus, tenderness, thyromegaly - Respiratory Respiratory exam: Present: Exam limited by habitus, overall clear to auscultation bilaterally. Absent: accessory muscle use, chest wall tenderness - Cardiovascular Cardiovascular exam: Present: Exam limited by habitus, tense in general distant but overall regular rate and rhythm. Absent: carotid bruit, gallop, JVD, rubs - GI/Abdominal GI/Abdominal exam: Present: Exam limited by habitus, overall normal bowel sounds. Absent: distended, firm, guarding, hernia, mass, tenderness, rebound, soft - Extremities Exam Extremities exam: Present: normal inspection, normal capillary refill. Absent: calf tenderness, edema - Back Exam Back exam: Present: normal inspection. Absent: muscle spasm, vertebral tenderness - Neurological Exam Neurological exam: Present: alert, orientation difficult to ascertain because the patient is mildly stuporous status post extubation, unilateral weakness without resting or intention tremor - Psychiatric Psychiatric exam: Present: Unable to assess due to patient's mental status - Skin Skin exam: Present: normal color, warm, dry, intact. Absent: cyanosis, diaphoretic, rash, urticaria Result/EKG - Labs CBC & BMP: 02/23/17 06:41 02/23/17 04:07 Lab Results: I have reviewed the past 24 hour labs Labs: Laboratory Results - last 24 hr 02/22/17 02/22/17 02/22/17 11:51 17:30 23:49 WBC RBC Hgb Hct MCV MCH MCHC RDW Plt Count MPV Neut % (Auto) Lymph % (Auto) Cross % (Auto) Eos % (Auto) Baso % (Auto) Neut # (Auto) Lymph # (Auto) Cross # (Auto) Eos # (Auto) Baso # (Auto) Immature Gran % Nucleated RBC % Immature Gran # Nucleated RBCs # Sodium Potassium Chloride Carbon Dioxide Anion Gap BUN Creatinine GFR Calculation BUN/Creatinine Ratio Glucose POC Glucose 205 H 242 H 217 H Calculated Osmolality Calcium Magnesium 02/23/17 02/23/17 02/23/17 04:07 05:34 06:41 WBC 9.5 RBC 3.96 Hgb 12.5 L Hct 38.5 L MCV 97.2 MCH 32 MCHC 32.5 RDW 13.7 Plt Count 134 MPV 13.2 H Neut % (Auto) 75.0 H Lymph % (Auto) 13.1 L Cross % (Auto) 7.3 Eos % (Auto) 0.1 Baso % (Auto) 0.2 Neut # (Auto) 7.2 Lymph # (Auto) 1.3 L Cross # (Auto) 0.7 Eos # (Auto) 0.0 Baso # (Auto) 0.0 Immature Gran % 4.3 Nucleated RBC % 0.0 Immature Gran # 0.41 Nucleated RBCs # 0.00 Sodium 141 Potassium 4.1 Chloride 105 Carbon Dioxide 27 Anion Gap 13.1 BUN 24 H Creatinine 0.90 GFR Calculation 140 BUN/Creatinine Ratio 26.00 H Glucose 226 H POC Glucose 200 H Calculated Osmolality 291.3 Calcium 8.7 Magnesium 2.5 H - Diagnostic Findings Procedure: Chest x-ray: report reviewed by me
[2017-02-23] MEDS: INSULIN GLARGINE 100 UNIT/ML SUBCUT SCH (09:45)
[2017-02-23] MEDS ORDERED: HALOPERIDOL 5 MG/ML AMP IV ONE (10:27)
[2017-02-23] MEDS: amLODIPine 10 MG TABLET PO SCH (13:09)
[2017-02-23] MEDS: MORPHINE 2 MG/1 ML SYRINGE IV PRN ×2 (13:20→18:51)
[2017-02-23] MEDS ORDERED: METOPROLOL TARTRATE 5 MG/5 ML VIAL IV ONE (13:50)
[2017-02-23] MEDS: ACETAMINOPHEN 325 MG TABLET PO PRN (14:30)
[2017-02-23] MEDS: niCARdipine INJ 25 MG in SODIUM CHLORIDE 0.9% 240 ML IV SCH ×2 (15:15→18:00)
[2017-02-23] MEDS: VANCOMYCIN INJ 1,750 MG in SODIUM CHLORIDE 0.9% 500 ML IV SCH (17:35)
[2017-02-23] MEDS: niCARdipine INJ 50 MG in SODIUM CHLORIDE 0.9% 480 ML IV SCH (20:03)
[2017-02-23] MEDS: QUEtiapine 100 MG TABLET PO SCH (20:07)
[2017-02-23] MEDS: ATORVASTATIN 20 MG TABLET PO SCH (20:07)
[2017-02-23] MEDS: ALFUZOSIN 10 MG TABLET PO SCH (20:07)
[2017-02-23] MEDS: ENOXAPARIN 40 MG/0.4 ML SYRINGE SUBCUT SCH (20:08)
[2017-02-24] MEDS: niCARdipine INJ 50 MG in SODIUM CHLORIDE 0.9% 480 ML IV SCH ×3 (03:06→10:30)
[2017-02-24] MEDS: ALBUTEROL 2.5 MG/3 ML NEB RESP TX SCH ×6 (03:21→23:30)
[2017-02-24 03:47] LABS: Basophils % 0.4 % (0.0-0.8); Eosinophils # 0.1 10*3/uL (0.0-0.87); Eosinophils % 0.8 % (0.00-10.9); Hematocrit 39.8 VOL% (42.0-52.0); Immature Granulocytes % 4.9 %; Immature Granulocytes Absolute 0.49 #; Lymphocytes # 1.8 10*3/uL (1.4-4.0); Lymphocytes % 17.6 % (21.2-54.2); Mean Corpuscular HGB Conc 32.7 GM/DL (32-36); Mean Corpuscular Hemoglobin 32 PG (27-34); Mean Corpuscular Volume 96.8 FL (87-102); Mean Platelet Volume 12.6 FL (9.6-12.0); Monocytes % 10.1 % (1.7-12.7); Neutrophils # 6.7 10*3/uL (1.4-7.4); Neutrophils % 66.2 % (38.7-73.9); Platelet Count 176 T/CUMM (130-400); Red Blood Count 4.11 MC/CUMM (3.8-5.5); Red Cell Distribution Width 13.7 % (9.3-17.3); White Blood Count 10.1 T/CUMM (4-12)
[2017-02-24 04:18] LABS: Calcium 8.4 MG/DL (8.5-10.1); Magnesium 2.2 MG/DL (1.8-2.4); Osmolality,Calculated 289.8 MOS/KG (273-304); Potassium 3.5 MMOL/L (3.5-5.1)
[2017-02-24] MEDS: VANCOMYCIN INJ 1,750 MG in SODIUM CHLORIDE 0.9% 500 ML IV SCH ×2 (05:13→17:28)
[2017-02-24] MEDS: INSULIN REGULAR 100 UNIT/ML SUBCUT SCH ×4 (06:12→21:26)
--- NOTE | 2017-02-24 07:37 | Pulmonology Progress Note ---
Pulmonary - PN: Subj Interval history: PAtient stable overnight, was successfully extubated yesterday, O2 sats remain in the low 90s. No complaints from patient and no issues per nursing Exam (Progress Note) - Constitutional Vitals: Period Temp Pulse Resp BP Sys/Pierce Pulse Ox Last 24 Hr 99.0 F-100.9 F 79-119 12-24 125-196/57-108 87-100 General appearance: no acute distress - Head Head exam: Present: normal inspection - Respiratory Respiratory exam: Present: clear to auscultation bilaterally - Cardiovascular Cardiovascular exam: Present: regular rate and rhythm - GI/Abdominal GI/Abdominal exam: Present: normal bowel sounds Results - Labs CBC & BMP: 02/24/17 03:32 02/24/17 03:32 Assessment and Plan (1) Pneumonia Status: Acute Assessment and plan: Patient with MRSA and Serratia in sputum. Already on Vanc and Meropenem. Will change Madonna to Cipro to tailor therapy. Needs a total of 10 days Current Visit: Yes (2) COPD (chronic obstructive pulmonary disease) Status: Chronic Assessment and plan: Continue with breathing treatments. Overall doing well Current Visit: Yes
--- NOTE | 2017-02-24 08:14 | Hospitalist Progress Note ---
Assessment and Plan (1) Pneumonia Status: Acute Current Visit: Yes Qualifiers: Pneumonia type: due to methicillin-resistant Staphylococcus aureus (MRSA) (2) Acute respiratory failure Status: Acute Current Visit: Yes (3) COPD (chronic obstructive pulmonary disease) Status: Chronic Current Visit: Yes (4) Hyperlipidemia Status: Chronic Current Visit: Yes (5) Hypertension Status: Chronic Current Visit: Yes (6) Morbid obesity Status: Chronic Assessment and plan: -Patient now extubated appears to be stable -Continue IV antibiotic therapy with Cipro and vancomycin -Cardiology consulted, will continue follow recommendation, blood pressure worsening -Continue oral steroids -Continue to monitor her blood counts and electrolytes -Klonopin as needed -May transfer to regular floor if patient remains stable following extubation Current Visit: Yes Hospitalist: Subjective Interval history: 71 year old male admitted with acute respiratory failure due to MRSA pneumonia. The patient is now extubated and responsive this morning, eating breakfast. He is without complaint this morning. His blood pressure has increased today and a Cardene infusion has been started. Exam - Constitutional Vitals: Period Temp Pulse Resp BP Sys/Pierce Pulse Ox Last 24 Hr 99.0 F-100.9 F 79-119 12-24 125-196/57-108 87-100 General appearance: over weight - Head Head exam: Present: normal inspection - Eye Eye exam: Present: EOMI Pupils: Present: THIEN - ENT ENT exam: Present: normal exam - Neck Neck exam: Present: normal inspection (Extubated) - Respiratory Respiratory exam: Present: decreased breath sounds (Right lower lobe), rhonchi ( Right lower lobe) - Cardiovascular Cardiovascular exam: Present: regular rate and rhythm. Absent: tachycardia - GI/Abdominal GI/Abdominal exam: Present: normal bowel sounds - Extremities Exam Extremities exam: Present: normal inspection - Neurological Exam Neurological exam: Present: alert, oriented X3 - Skin Skin exam: Present: normal color Results - Labs CBC & BMP: 02/24/17 03:32 02/24/17 03:32 Lab Results: I have reviewed the past 24 hour labs
[2017-02-24] MEDS: MEROPENEM 1,000 MG in SODIUM CHLORIDE 0.9% 100 ML IV SCH (08:26)
[2017-02-24] MEDS: predniSONE 20 MG TABLET PO SCH (08:44)
[2017-02-24] MEDS: METOPROLOL TARTRATE 50 MG TABLET PO SCH (08:44)
[2017-02-24] MEDS: ASPIRIN CHEW 81 MG TABLET PO SCH (08:44)
[2017-02-24] MEDS: amLODIPine 10 MG TABLET PO SCH (08:44)
[2017-02-24] MEDS: PANTOPRAZOLE 40 MG TABLET PO SCH (08:45)
[2017-02-24] MEDS: ACETAMINOPHEN 325 MG TABLET PO PRN (08:47)
[2017-02-24] MEDS: CIPROFLOXACIN INJ 400 MG in PREMIX 1 EACH IV SCH ×2 (08:49→20:23)
--- NOTE | 2017-02-24 09:43 | Cardiology Progress Note ---
Assessment and Plan (1) Acute respiratory failure Status: Acute Current Visit: Yes (2) Diabetes mellitus Status: Chronic Current Visit: Yes (3) Hypertension Status: Chronic Current Visit: Yes (4) COPD (chronic obstructive pulmonary disease) Status: Chronic Current Visit: Yes (5) Hyperlipidemia Status: Chronic Current Visit: Yes (6) History of CVA (cerebrovascular accident) Status: Chronic Current Visit: Yes (7) Morbid obesity Status: Chronic Current Visit: Yes (8) Sleep disorder Status: Chronic Current Visit: Yes (9) Elevated troponin Status: Acute Current Visit: Yes (10) Renal insufficiency Status: Resolved Current Visit: Yes Cardiology - PN: Subj Interval history: VIDEO JOURNALIST: None PCP: DR. CASTRO SUMMARY: Mr. Morse, 71BM, has history of: diabetes, hypertension, dyslipidemia, CVA (June 2015 affecting right side), obesity, COPD and asthma. He was admitted from outside hospital with respiratory distress, requiring intubation, and has been diagnosed with MRSA pneumonia. Initially, EKG was abnormal but this has since normalized. Cardiac biomarkers are mildly abnormal in the setting of underlying renal insufficiency. Chest x-ray abnormal , pulmonary following. FEBRUARY 20, 2017: It appears the patient had a primary pulmonary event with possible secondary cardiac ischemia and strain. Overnight, chest x-ray has improved dramatically. Continue to treat his acute pulmonary issues and, prior to discharge, he may benefit from cardiac catheterization depending on clinical evolution. Troponins are flat. Venous Dopplers bilateral lower extremities negative. He is hypomagnesemic and we will treat this morning. No arrhythmias noted. Wakes and obeys commands. Creatinine has improved from 1.7 to 1.2 this morning. Continues to take aspirin, atorvastatin, beta blockade and Lovenox. Avoiding JULIO inhibitors for fear of worsening his renal insufficiency. Today, will increase his beta-soham for better blood pressure control. FEBRUARY 21, 2017: Overnight, no significant change. He appears to be very comfortable on the ventilator. Systolic blood pressures averaging around 170. Creatinine is 1.2 this morning. JULIO inhibitors have been avoided for fear of worsening his renal insufficiency. I will add Norvasc this morning for better control titrating up as we need to. No arrhythmias noted. Platelet count has dropped overnight to 124. Lovenox was decreased to lower dose yesterday as this is not considered acute coronary syndrome. Eventually, once patient's condition has stabilized, he may benefit from cardiac catheterization. FEBRUARY 22, 2017: Mr. Morse remains intubated, sedated but does follow commands appropriately. General edema noted. Systolic blood pressure still averaging 160s and 170s. Yesterday, Norvasc 5 mg was added. Will increase to 10 mg daily. He will get an additional 5 mg today as he has already had his 5 mg tablet. Labs are stable. White blood cell count has normalized. At this point , will continue treating his underlying pulmonary problems. Eventually, patient may be a candidate for cardiac catheterization once his multiple comorbidities improve. February 23, 2017: He was extubated this morning. He denies any chest pain or shortness of breath. His mentation seems a little slow. He continues to be hypertensive but overall this is improving. February 24, 2017: Clinically he is doing well postextubation. He denies chest pain , shortness of breath. His blood pressure has continued to increase despite escalations in his antihypertensive regimen. We are going to continue to adjust his regimen in an effort to better control his blood pressure. He denies experiencing any antecedent exertional chest discomfort or dyspnea, this appeared to be an acute presentation. He has had some low-grade fevers over the last few days, which is new compared to admission. Certainly his steroids may be contributing to his blood pressure issues. ASSESSMENT/PLAN: 1. ACUTE RESPIRATORY FAILURE -doing well post intubation. 2. ELEVATED TROPONIN -these were mildly elevated in the setting of hypoxia and hypertension. At some point prior to discharge depending on his clinical evolution, further risk stratification with either stress testing or cardiac catheterization as clinically warranted can be considered. I would pursue stress testing given the clinical scenario as long as he is not having any ongoing chest pain or shortness of breath. 3. HYPERTENSION -Norvasc 10 mg was initiated 2 days ago and will take 5 days to see the maximum benefit. Cardene drip was also initiated. Both hydralazine and Cardene appear to be somewhat ineffective. I am going to switch his medications around and continue to escalate his regimen-please see orders. 4. DYSLIPIDEMIA - continue Atorvastatin. LDL 78. 5. DIABETES - holding Metformin. Sliding scale insulin 6. RENAL INSUFFICIENCY - resolved. Creatinine has normalized. 7. MORBID OBESITY - dietary counseling prior to discharge 8. SUSPECTED SLEEP APNEA - will need outpatient sleep study eventually. Given his habitus, I strongly suspect he has obstructive sleep apnea 9. HISTORY OF CVA - continue current plan of care 10. Fever-we will recheck his urinalysis and blood cultures. It is concerning that this has worsened on antibiotic therapy with steroids. Exam (Progress Note) - Constitutional Vitals: Period Temp Pulse Resp BP Sys/Pierce Pulse Ox Last 24 Hr 99.0 F-100.9 F 84-119 12-24 125-196/57-108 87-98 Exam: General appearance: Obese, no acute distress - Head Head exam: Present: normal inspection, normocephalic, atraumatic. Absent: hematoma, laceration - Eye Eye exam: Present: EOMI. Absent: conjunctival injection, nystagmus, periorbital swelling, scleral icterus, laceration to eyelids Pupils: Present: THIEN. Absent: constricted, dilated, fixed, irregular, unequal - ENT ENT exam: Present: normal exam, normal external ear exam - Neck Neck exam: Present: Exam limited by habitus, overall normal inspection. Absent : lymphadenopathy, meningismus, tenderness, thyromegaly - Respiratory Respiratory exam: Present: Exam limited by habitus, overall clear to auscultation bilaterally. Absent: accessory muscle use, chest wall tenderness - Cardiovascular Cardiovascular exam: Present: Exam limited by habitus, tense in general distant but overall regular rate and rhythm. Absent: carotid bruit, gallop, JVD, rubs - GI/Abdominal GI/Abdominal exam: Present: Exam limited by habitus, overall normal bowel sounds. Absent: distended, firm, guarding, hernia, mass, tenderness, rebound, soft - Extremities Exam Extremities exam: Present: normal inspection, normal capillary refill. Absent: calf tenderness, edema - Back Exam Back exam: Present: normal inspection. Absent: muscle spasm, vertebral tenderness - Neurological Exam Neurological exam: Present: alert, orientation difficult to ascertain because the patient is mildly stuporous status post extubation, unilateral weakness without resting or intention tremor - Psychiatric Psychiatric exam: Present: Unable to assess due to patient's mental status - Skin Skin exam: Present: normal color, warm, dry, intact. Absent: cyanosis, diaphoretic, rash, urticaria Result/EKG - Labs CBC & BMP: 02/24/17 03:32 02/24/17 03:32 Lab Results: I have reviewed the past 24 hour labs Labs: Laboratory Results - last 24 hr 02/23/17 02/23/17 02/23/17 12:40 18:36 23:33 WBC RBC Hgb Hct MCV MCH MCHC RDW Plt Count MPV Neut % (Auto) Lymph % (Auto) Sharp % (Auto) Eos % (Auto) Baso % (Auto) Neut # (Auto) Lymph # (Auto) Sharp # (Auto) Eos # (Auto) Baso # (Auto) Immature Gran % Nucleated RBC % Immature Gran # Nucleated RBCs # Sodium Potassium Chloride Carbon Dioxide Anion Gap BUN Creatinine GFR Calculation BUN/Creatinine Ratio Glucose POC Glucose 149 H 150 H 240 H Calculated Osmolality Calcium Magnesium 02/24/17 02/24/17 02/24/17 03:32 03:32 05:57 WBC 10.1 RBC 4.11 Hgb 13.0 L Hct 39.8 L MCV 96.8 MCH 32 MCHC 32.7 RDW 13.7 Plt Count 176 D MPV 12.6 H Neut % (Auto) 66.2 Lymph % (Auto) 17.6 L Sharp % (Auto) 10.1 Eos % (Auto) 0.8 Baso % (Auto) 0.4 Neut # (Auto) 6.7 Lymph # (Auto) 1.8 Sharp # (Auto) 1.0 H Eos # (Auto) 0.1 Baso # (Auto) 0.0 Immature Gran % 4.9 Nucleated RBC % 0.0 Immature Gran # 0.49 Nucleated RBCs # 0.00 Sodium 144 Potassium 3.5 Chloride 108 H Carbon Dioxide 28 Anion Gap 11.5 BUN 23 H Creatinine 1.00 GFR Calculation 123 BUN/Creatinine Ratio 23.00 H Glucose 94 POC Glucose 115 H Calculated Osmolality 289.8 Calcium 8.4 L Magnesium 2.2
[2017-02-24] MEDS: INSULIN GLARGINE 100 UNIT/ML SUBCUT SCH (09:56)
[2017-02-24] MEDS: VALSARTAN 80 MG TABLET PO SCH (10:01)
[2017-02-24 10:37] LABS: Amorphous Crystals,Urine Occasional /HPF (Few); Apearance,Urine CLOUDY (Clear); Bacteria,Urine Occasional /HPF (Few); Bilirubin,Urine Negative (Negative); Blood, Urine Large mg/dL (Negative); Glucose,Urine (UA) Negative (Negative); Ketones,Urine 5 mg/dL (Negative); Mucus,Urine Moderate /LPF (Occasional); Nitrite,Urine Negative (Negative); Protein,Urine 30 MG/DL; RBC,Urine 256 /HPF (0-4); Squamous Epithelial Cell,Urine Occasional /HPF (0-10); Urine Color Yellow (Yellow); Urine Specific Gravity 1.019 (1.001-1.035); Urine Urobilinogen < 2.0 EU/DL (0.2-1.0); WBC,Urine 7 /HPF (0-6)
[2017-02-24] MEDS: clonazePAM 0.5 MG TABLET PO PRN (10:39)
[2017-02-24] MEDS: cloNIDine 0.1 MG TABLET PO PRN (10:39)
--- NOTE | 2017-02-24 11:51 | XRay Report ---
History: Pneumonia. Status post extubation Date: 02/24/2017 Study: Chest x-ray AP portable Comparison exam: February 22, 2017 The endotracheal and nasogastric tubes have been removed since the previous study. The pulmonary vasculature is upper normal. There is some patchy and strandy atelectasis/infiltrate in the right lung base which appears slightly increased compared to the previous study. There is no increasing pleural effusion. Osseous structures are unchanged. Impression: Interval extubation and nasogastric tube removal. Continued right basilar atelectasis/infiltrate which may be slightly more prominent than on the comparison study PROCEDURE INTERPRETED AT [facility] DEPARTMENT OF RADIOLOGY Final Report Signed by: Dr. Elenita Biswas
[2017-02-24] MEDS: CARVEDILOL 25 MG TABLET PO SCH (16:45)
[2017-02-24] MEDS: hydrALAZINE 20 MG/1 ML VIAL IV PRN (20:19)
[2017-02-24] MEDS: ATORVASTATIN 20 MG TABLET PO SCH (20:19)
[2017-02-24] MEDS: ALFUZOSIN 10 MG TABLET PO SCH (20:20)
[2017-02-24] MEDS: QUEtiapine 100 MG TABLET PO SCH (20:20)
[2017-02-24] MEDS: ENOXAPARIN 40 MG/0.4 ML SYRINGE SUBCUT SCH (20:46)
[2017-02-25] MEDS: ALBUTEROL 2.5 MG/3 ML NEB RESP TX SCH ×5 (03:52→20:28)
[2017-02-25] MEDS: VANCOMYCIN INJ 1,750 MG in SODIUM CHLORIDE 0.9% 500 ML IV SCH ×2 (05:54→16:57)
[2017-02-25 09:25] LABS: Basophils % 0.2 % (0.0-0.8); Eosinophils # 0.2 10*3/uL (0.0-0.87); Eosinophils % 2.2 % (0.00-10.9); Hemoglobin 13.8 GM/DL (14.0-18.0); Immature Granulocytes % 5.6 %; Immature Granulocytes Absolute 0.55 #; Lymphocytes # 1.6 10*3/uL (1.4-4.0); Lymphocytes % 16.2 % (21.2-54.2); Mean Corpuscular HGB Conc 32.9 GM/DL (32-36); Mean Corpuscular Hemoglobin 32 PG (27-34); Mean Corpuscular Volume 97.4 FL (87-102); Mean Platelet Volume 12.6 FL (9.6-12.0); Monocytes % 10.5 % (1.7-12.7); Neutrophils # 6.4 10*3/uL (1.4-7.4); Neutrophils % 65.3 % (38.7-73.9); Red Blood Count 4.31 MC/CUMM (3.8-5.5); Red Cell Distribution Width 13.2 % (9.3-17.3); White Blood Count 9.8 T/CUMM (4-12)
[2017-02-25 09:29] LABS: Platelet Count 136 T/CUMM (130-400)
[2017-02-25 09:45] LABS: Calcium 8.4 MG/DL (8.5-10.1); Magnesium 2.2 MG/DL (1.8-2.4); Osmolality,Calculated 292.1 MOS/KG (273-304); Potassium 3.9 MMOL/L (3.5-5.1)
[2017-02-25 10:01] LABS: Band Neutrophils 1 % (0-10); Eosinophils 3 % (0-10); Hypochromasia 1+; Lymphocytes 22 % (20-55); Magnesium 2.2 MG/DL (1.8-2.4); Phosphorous 2.3 MG/DL (2.5-4.9); Prealbumin 27.7 MG/DL (20-40); Segmented Neutrophils 66 % (50-85); Total Cells Counted 100
[2017-02-25] MEDS: INSULIN GLARGINE 100 UNIT/ML SUBCUT SCH (10:12)
[2017-02-25] MEDS: CIPROFLOXACIN INJ 400 MG in PREMIX 1 EACH IV SCH ×2 (10:12→22:47)
[2017-02-25] MEDS: PANTOPRAZOLE 40 MG TABLET PO SCH (10:13)
[2017-02-25] MEDS: ASPIRIN CHEW 81 MG TABLET PO SCH (10:13)
[2017-02-25] MEDS: amLODIPine 10 MG TABLET PO SCH (10:13)
[2017-02-25] MEDS: VALSARTAN 80 MG TABLET PO SCH (10:13)
[2017-02-25] MEDS: INSULIN REGULAR 100 UNIT/ML SUBCUT SCH ×4 (10:13→22:48)
[2017-02-25] MEDS: predniSONE 20 MG TABLET PO SCH (10:13)
[2017-02-25] MEDS: CARVEDILOL 25 MG TABLET PO SCH ×2 (10:14→16:57)
[2017-02-25] MEDS: clonazePAM 0.5 MG TABLET PO PRN ×2 (10:17→20:39)
--- NOTE | 2017-02-25 10:42 | Hospitalist Progress Note ---
Assessment and Plan - Time spent with patient Time spent with patient: Less than 30 minutes (1) MRSA pneumonia Status: Acute Assessment and plan: 71AAM w history of HTN, DM, HL, COPD admitted w acute respiratory failure due to MRSA pneumonia. he is now extubated and on telemetry. he is being followed by cardiology and pulmonary. dr dutta to see and examine pt and further recommendations to follow. pneumonia/ARF/COPD--pt is on cipro and vanc, breathing treatments and steroids. he is now off the vent and in a regular room. his breathing is non labored and chest is clear. pulmonary is following and will determine dc date. HTN--BP are up to 178/88. cardiology has him on norvasc, coreg, diovan, and alpresoline and clonodine prn. they are cont to monitor and adjust his meds accordingly. they may do a stress test in the am. DM--BP are fairly well controlled. he is on insulin and SSI. pt is also on steroids so will cont to monitor. Current Visit: Yes (2) Acute respiratory failure Status: Acute Current Visit: Yes (3) Diabetes mellitus Status: Chronic Current Visit: Yes (4) Hypertension Status: Chronic Current Visit: Yes (5) COPD (chronic obstructive pulmonary disease) Status: Chronic Current Visit: Yes (6) Hyperlipidemia Status: Chronic Current Visit: Yes (7) History of CVA (cerebrovascular accident) Status: Chronic Current Visit: Yes Hospitalist: Subjective Interval history: pt is lying comfortably in bed. he says he is feeling so much better today. no complaints of SOB or CP. no fevers. Exam - Constitutional Vitals: Period Temp Pulse Resp BP Sys/Pierce Pulse Ox Last 24 Hr 97.4 F-100.1 F 69-101 16-30 137-205/65-90 91-99 Exam: 71AAM, NAD, alert and oriented chest clear cv rrr abd soft nt ext mild edema Results - Labs CBC & BMP: 02/25/17 08:44 02/25/17 08:44 Lab Results: I have reviewed the past 24 hour labs
[2017-02-25] MEDS ORDERED: VALSARTAN 80 MG TABLET PO ONE (12:29)
--- NOTE | 2017-02-25 12:30 | Cardiology Progress Note ---
Jackeline Jo April RN, am scribing for, and in the presence of, Karol Hendrix MD 12:29. Assessment and Plan (1) Acute respiratory failure Status: Acute Current Visit: Yes (2) Elevated troponin Status: Acute Current Visit: Yes (3) COPD (chronic obstructive pulmonary disease) Status: Chronic Current Visit: Yes (4) Diabetes mellitus Status: Chronic Current Visit: Yes (5) History of CVA (cerebrovascular accident) Status: Chronic Current Visit: Yes (6) Hyperlipidemia Status: Chronic Current Visit: Yes (7) Hypertension Status: Chronic Current Visit: Yes (8) Morbid obesity Status: Chronic Current Visit: Yes (9) Sleep disorder Status: Chronic Current Visit: Yes (10) Renal insufficiency Status: Resolved Current Visit: Yes Cardiology - PN: Subj Interval history: PUBLIC HEALTH STAFF NURSE: None PCP: DR. CASTRO SUMMARY: Mr. Morse, 71BM, has history of: diabetes, hypertension, dyslipidemia, CVA (June 2015 affecting right side), obesity, COPD and asthma. He was admitted from outside hospital with respiratory distress, requiring intubation, and has been diagnosed with MRSA pneumonia. Initially, EKG was abnormal but this has since normalized. Cardiac biomarkers are mildly abnormal in the setting of underlying renal insufficiency. Chest x-ray abnormal , pulmonary following. February 25, 2017: Mr. Morse is seen resting in bed in no acute distress. He denies chest pain, shortness of breath, palpitations, or dizziness. His blood pressure continues to run high, this morning 178/88. Again last night he had a low-grade temp of 100.1. Urine and blood cultures are negative at 1 day, final results pending. Telemetry monitoring currently shows sinus rhythm with heart rates in the 60s. ASSESSMENT/PLAN: 1. ACUTE RESPIRATORY FAILURE -doing well post intubation. 2. ELEVATED TROPONIN -these were mildly elevated in the setting of hypoxia and hypertension. At some point prior to discharge depending on his clinical evolution, further risk stratification with either stress testing or cardiac catheterization as clinically warranted can be considered. I would pursue stress testing given the clinical scenario as long as he is not having any ongoing chest pain or shortness of breath. 3. HYPERTENSION -Norvasc 10 mg was initiated 2 days ago and will take 5 days to see the maximum benefit. Both hydralazine and Cardene appear to be somewhat ineffective. Diovan will be increased. 4. DYSLIPIDEMIA - continue Atorvastatin. LDL 78. 5. DIABETES - holding Metformin. Sliding scale insulin 6. RENAL INSUFFICIENCY - resolved. Creatinine has normalized. 7. MORBID OBESITY - dietary counseling prior to discharge 8. SUSPECTED SLEEP APNEA - will need outpatient sleep study eventually. Given his habitus, I strongly suspect he has obstructive sleep apnea 9. HISTORY OF CVA - continue current plan of care 10. Fever-we will recheck his urinalysis and blood cultures. It is concerning that this has worsened on antibiotic therapy with steroids. Exam (Progress Note) - Constitutional Vitals: Period Temp Pulse Resp BP Sys/Pierce Pulse Ox Last 24 Hr 97.4 F-100.1 F 69-101 16-30 137-205/65-88 91-99 Exam: General appearance: Obese, no acute distress - Head Head exam: Present: normal inspection, normocephalic, atraumatic. Absent: hematoma, laceration - Eye Eye exam: Present: EOMI. Absent: conjunctival injection, nystagmus, periorbital swelling, scleral icterus, laceration to eyelids Pupils: Present: THIEN. Absent: constricted, dilated, fixed, irregular, unequal - ENT ENT exam: Present: normal exam, normal external ear exam - Neck Neck exam: Present: Exam limited by habitus, overall normal inspection. Absent : lymphadenopathy, meningismus, tenderness, thyromegaly - Respiratory Respiratory exam: Present: Exam limited by habitus, overall clear to auscultation bilaterally. Absent: accessory muscle use, chest wall tenderness - Cardiovascular Cardiovascular exam: Present: Exam limited by habitus, tense in general distant but overall regular rate and rhythm. Absent: carotid bruit, gallop, JVD, rubs - GI/Abdominal GI/Abdominal exam: Present: Exam limited by habitus, overall normal bowel sounds. Absent: distended, firm, guarding, hernia, mass, tenderness, rebound, soft - Extremities Exam Extremities exam: Present: normal inspection, normal capillary refill. Absent: calf tenderness, edema - Back Exam Back exam: Present: normal inspection. Absent: muscle spasm, vertebral tenderness - Neurological Exam Neurological exam: Present: alert, oriented x 3, unilateral weakness without resting or intention tremor - Psychiatric Psychiatric exam: Present: Does not appear agitated or anxious - Skin Skin exam: Present: normal color, warm, dry, intact. Absent: cyanosis, diaphoretic, rash, urticaria Result/EKG - Labs CBC & BMP: 02/25/17 08:44 02/25/17 08:44 Lab Results: I have reviewed the past 24 hour labs Labs: Laboratory Results - last 24 hr 02/24/17 02/24/17 02/24/17 11:59 15:43 16:16 WBC RBC Hgb Hct MCV MCH MCHC RDW Plt Count MPV Neut % (Auto) Lymph % (Auto) [place] % (Auto) Eos % (Auto) Baso % (Auto) Neut # (Auto) Lymph # (Auto) [place] # (Auto) Eos # (Auto) Baso # (Auto) Total Counted Immature Gran % Nucleated RBC % Immature Gran # Segmented Neutrophils Band Neutrophils Lymphocytes Monocytes Eosinophils Nucleated RBCs # Hypochromasia Morphology Comment Sodium Potassium Chloride Carbon Dioxide Anion Gap BUN Creatinine GFR Calculation BUN/Creatinine Ratio Glucose POC Glucose 174 H 167 H Calculated Osmolality Calcium Phosphorus Magnesium Prealbumin Vancomycin Trough 14.9 02/24/17 02/25/17 02/25/17 21:26 08:17 08:44 WBC RBC Hgb Hct MCV MCH MCHC RDW Plt Count MPV Neut % (Auto) Lymph % (Auto) [place] % (Auto) Eos % (Auto) Baso % (Auto) Neut # (Auto) Lymph # (Auto) [place] # (Auto) Eos # (Auto) Baso # (Auto) Total Counted Immature Gran % Nucleated RBC % Immature Gran # Segmented Neutrophils Band Neutrophils Lymphocytes Monocytes Eosinophils Nucleated RBCs # Hypochromasia Morphology Comment Sodium Potassium Chloride Carbon Dioxide Anion Gap BUN Creatinine GFR Calculation BUN/Creatinine Ratio Glucose POC Glucose 147 H 166 H Calculated Osmolality Calcium Phosphorus 2.3 L Magnesium 2.2 Prealbumin 27.7 Vancomycin Trough 02/25/17 02/25/17 08:44 08:44 WBC 9.8 RBC 4.31 Hgb 13.8 L Hct 42.0 MCV 97.4 MCH 32 MCHC 32.9 RDW 13.2 Plt Count 136 D MPV 12.6 H Neut % (Auto) 65.3 Lymph % (Auto) 16.2 L [place] % (Auto) 10.5 Eos % (Auto) 2.2 Baso % (Auto) 0.2 Neut # (Auto) 6.4 Lymph # (Auto) 1.6 [place] # (Auto) 1.0 H Eos # (Auto) 0.2 Baso # (Auto) 0.0 Total Counted 100 Immature Gran % 5.6 Nucleated RBC % 0.0 Immature Gran # 0.55 Segmented Neutrophils 66 Band Neutrophils 1 Lymphocytes 22 Monocytes 8 Eosinophils 3 Nucleated RBCs # 0.00 Hypochromasia 1+ Morphology Comment Sodium 142 Potassium 3.9 Chloride 108 H Carbon Dioxide 25 Anion Gap 12.9 BUN 23 H Creatinine 1.00 GFR Calculation 122 BUN/Creatinine Ratio 23.00 H Glucose 207 H POC Glucose Calculated Osmolality 292.1 Calcium 8.4 L Phosphorus Magnesium 2.2 Prealbumin Vancomycin Trough - EKG EKG results: interpreted by me EKG shows: sinus rhythm Simeon Jo Jennifer, MD, personally performed the services described in this documentation, ascribed by Linda Viveros RN in my presence, and it is both accurate and complete 229 .
--- NOTE | 2017-02-25 14:58 | Pulmonology Progress Note ---
Pulmonary - PN: Subj Interval history: Patient extubated and transferred from ICU yesterday. Doing very well. Was able to get up and walk to bathroom with assistance. Breathing is much improved Exam (Progress Note) - Constitutional Vitals: Period Temp Pulse Resp BP Sys/Pierce Pulse Ox Last 24 Hr 97.4 F-100.1 F 69-101 16-26 146-205/75-93 92-99 General appearance: no acute distress - Head Head exam: Present: normal inspection - Respiratory Respiratory exam: Absent: accessory muscle use, stridor, wheezes - Cardiovascular Cardiovascular exam: Present: regular rate and rhythm - GI/Abdominal GI/Abdominal exam: Present: soft Results - Labs CBC & BMP: 02/25/17 08:44 02/25/17 08:44 Lab Results: I have reviewed the past 24 hour labs Assessment and Plan (1) Pneumonia Status: Acute Assessment and plan: Patient with MRSA and Serratia in sputum. On Vanc and Cipro. Needs a total of 10 days Current Visit: Yes Qualifiers: Pneumonia type: due to methicillin-resistant Staphylococcus aureus (MRSA) (2) COPD (chronic obstructive pulmonary disease) Status: Chronic Assessment and plan: Continue with breathing treatments. Overall doing well Current Visit: Yes
[2017-02-25] MEDS: LACTOBACILLUS ACIDOPHILUS/BULGARICUS CHEW TABLET PO SCH ×2 (15:28→22:49)
[2017-02-25] MEDS: ENOXAPARIN 40 MG/0.4 ML SYRINGE SUBCUT SCH (20:38)
[2017-02-25] MEDS: QUEtiapine 100 MG TABLET PO SCH (20:38)
[2017-02-25] MEDS: ATORVASTATIN 20 MG TABLET PO SCH (20:38)
[2017-02-25] MEDS: ALFUZOSIN 10 MG TABLET PO SCH (22:49)
[2017-02-26] MEDS: ALBUTEROL 2.5 MG/3 ML NEB RESP TX SCH ×7 (00:55→23:58)
[2017-02-26] MEDS: VANCOMYCIN INJ 1,750 MG in SODIUM CHLORIDE 0.9% 500 ML IV SCH (05:24)
[2017-02-26] MEDS: hydrALAZINE 20 MG/1 ML VIAL IV PRN (06:46)
[2017-02-26] MEDS: INSULIN REGULAR 100 UNIT/ML SUBCUT SCH ×4 (07:47→20:16)
[2017-02-26] MEDS ORDERED: VALSARTAN 160 MG TABLET PO SCH (09:00)
[2017-02-26] MEDS: CIPROFLOXACIN INJ 400 MG in PREMIX 1 EACH IV SCH ×2 (09:24→20:11)
[2017-02-26] MEDS: INSULIN GLARGINE 100 UNIT/ML SUBCUT SCH (09:24)
[2017-02-26] MEDS: predniSONE 10 MG TABLET PO SCH (09:25)
[2017-02-26] MEDS: LACTOBACILLUS ACIDOPHILUS/BULGARICUS CHEW TABLET PO SCH ×2 (09:25→20:12)
[2017-02-26] MEDS: ASPIRIN CHEW 81 MG TABLET PO SCH (09:25)
[2017-02-26] MEDS: CARVEDILOL 25 MG TABLET PO SCH ×2 (09:26→17:13)
[2017-02-26] MEDS: PANTOPRAZOLE 40 MG TABLET PO SCH (09:26)
[2017-02-26] MEDS: amLODIPine 10 MG TABLET PO SCH (09:26)
[2017-02-26] MEDS: clonazePAM 0.5 MG TABLET PO PRN (09:26)
--- NOTE | 2017-02-26 10:14 | Hospitalist Progress Note ---
Assessment and Plan - Time spent with patient Time spent with patient: Less than 30 minutes (1) MRSA pneumonia Status: Acute Assessment and plan: 71AAM w history of HTN, DM, HL, COPD admitted w acute respiratory failure due to MRSA pneumonia. he is now extubated and on telemetry. he is being followed by cardiology and pulmonary. dr simons to see and examine pt and further recommendations to follow. pneumonia/ARF/COPD--pt is on cipro and vanc, breathing treatments and steroids. he is now off the vent and in a regular room. his breathing is non labored and chest is clear. pulmonary is following and will determine dc date. HTN--BP are up to 178/88. cardiology has him on norvasc, coreg, diovan, and alpresoline and clonodine prn. they are cont to monitor and adjust his meds accordingly. they may do a stress test in the am. DM--BP are fairly well controlled. he is on insulin and SSI. pt is also on steroids so will cont to monitor. 02/26/2017 patient is much improved. He is on Cipro and vanc for MRSA pneumonia. Final cultures show patient is sensitive to clindamycin and Cipro. We will go ahead and switch this over into p.o. medications for preparation for discharge. His prednisone was decreased to 30 mg p.o. daily yesterday by Dr. Simons. He can go home on tapered prednisone p.o. Pulmonary is following and will see when their plan is for patient's discharge. Patient's blood pressures are improving at 160/72. Cardiology is following and adjusting his meds. There was mention yesterday by Dr. Sethi of stress test versus PCI before discharge. Spoke with cardiology HIP H[employer] ARTIST and she will check with the marine steamfitter on this. Patient's diabetes is under good control on home insulin and sliding scale. We will continue to monitor since the patient is on prednisone. If patient undergo stress test today and everything looks okay, he may be able to discharge later this afternoon or tomorrow. Dr. Simons to see and examine patient and further recommendations to follow. Current Visit: Yes (2) Acute respiratory failure Status: Acute Current Visit: Yes (3) Diabetes mellitus Status: Chronic Current Visit: Yes (4) Hypertension Status: Chronic Current Visit: Yes (5) COPD (chronic obstructive pulmonary disease) Status: Chronic Current Visit: Yes (6) Hyperlipidemia Status: Chronic Current Visit: Yes (7) History of CVA (cerebrovascular accident) Status: Chronic Current Visit: Yes Hospitalist: Subjective Interval history: Patient feels so much better. He thinks he is ready to go home. He has no complaints of chest pain or increasing shortness of breath. He is ambulating in the [place] with physical therapy with a rolling walker without difficulty. Exam - Constitutional Vitals: Period Temp Pulse Resp BP Sys/Pierce Pulse Ox Last 24 Hr 97.7 F-99.5 F 59-91 18-20 155-199/72-93 94-99 Exam: 71AAM, NAD, alert and oriented chest clear cv rrr abd soft nt ext mild edema Results - Labs CBC & BMP: 02/25/17 08:44 02/25/17 08:44 Lab Results: I have reviewed the past 24 hour labs
--- NOTE | 2017-02-26 11:33 | Cardiology Progress Note ---
<Nahomy Paniagua E - Last Filed: 02/26/17 11:58> Assessment and Plan - Time spent with patient Time spent with patient: Less than 30 minutes (1) Acute respiratory failure Status: Acute Assessment and plan: SEE PLAN OF CARE LISTED BELOW. Current Visit: Yes (2) Elevated troponin Status: Acute Assessment and plan: SEE PLAN OF CARE LISTED BELOW. Current Visit: Yes (3) Hypertension Status: Chronic Assessment and plan: SEE PLAN OF CARE LISTED BELOW. Current Visit: Yes (4) Hyperlipidemia Status: Chronic Assessment and plan: SEE PLAN OF CARE LISTED BELOW. Current Visit: Yes (5) Diabetes mellitus Status: Chronic Assessment and plan: SEE PLAN OF CARE LISTED BELOW. Current Visit: Yes (6) Renal insufficiency Status: Resolved Assessment and plan: SEE PLAN OF CARE LISTED BELOW. Current Visit: Yes (7) Morbid obesity Status: Chronic Assessment and plan: SEE PLAN OF CARE LISTED BELOW. Current Visit: Yes (8) Sleep disorder Status: Chronic Assessment and plan: SEE PLAN OF CARE LISTED BELOW. Current Visit: Yes (9) History of CVA (cerebrovascular accident) Status: Chronic Assessment and plan: SEE PLAN OF CARE LISTED BELOW. Current Visit: Yes (10) Fever Status: Acute Assessment and plan: SEE PLAN OF CARE LISTED BELOW. Current Visit: Yes Cardiology - PN: Subj Interval history: CAPTAIN RO[employer] SERVICE: None PCP: DR. CASTRO SUMMARY: Mr. Morse, 71BM, has history of: diabetes, hypertension, dyslipidemia, CVA (June 2015 affecting right side), obesity, COPD and asthma. He was admitted from outside hospital with respiratory distress, requiring intubation, and has been diagnosed with MRSA pneumonia. Initially, EKG was abnormal but this has since normalized. Cardiac biomarkers are mildly abnormal in the setting of underlying renal insufficiency. Chest x-ray abnormal , pulmonary following. February 26, 2017: Mr. Morse is seen sitting up in the bedside chair in no acute distress. He denies chest pain, shortness of breath, palpitations, or dizziness. His blood pressure continues to run high, this morning 160/72. Again last night he had a low-grade temp of 99.5. Blood cultures are negative at 1 day, final results pending. Urine culture final report shows no growth at 48 hours. Telemetry monitoring currently shows sinus rhythm with heart rates in the 60s. ASSESSMENT/PLAN: 1. ACUTE RESPIRATORY FAILURE -doing well post intubation. 2. ELEVATED TROPONIN -these were mildly elevated in the setting of hypoxia and hypertension. At some point prior to discharge depending on his clinical evolution, further risk stratification with either stress testing or cardiac catheterization as clinically warranted can be considered. I would pursue stress testing given the clinical scenario as long as he is not having any ongoing chest pain or shortness of breath. 3. HYPERTENSION -Norvasc 10 mg was initiated 3 days ago and will take 5 days to see the maximum benefit. Both hydralazine and Cardene appear to be somewhat ineffective. Diovan was increased yesterday. Blood pressure remains elevated. Will further increase his Diovan while we await therapeutic effects of norvasc. 4. DYSLIPIDEMIA - continue Atorvastatin. LDL 78. 5. DIABETES - holding Metformin. Sliding scale insulin. 6. RENAL INSUFFICIENCY - resolved. Creatinine has normalized. 7. MORBID OBESITY - dietary counseling prior to discharge 8. SUSPECTED SLEEP APNEA - will need outpatient sleep study eventually. Given his habitus, I strongly suspect he has obstructive sleep apnea. 9. HISTORY OF CVA - continue current plan of care 10. FEVER -we will recheck his urinalysis and blood cultures. It is concerning that this has worsened on antibiotic therapy with steroids. Exam (Progress Note) - Constitutional Vitals: Period Temp Pulse Resp BP Sys/Pierce Pulse Ox Last 24 Hr 97.7 F-99.5 F 59-87 18-20 155-199/72-93 94-99 Exam: General appearance: Obese, no acute distress - Head Head exam: Present: normal inspection, normocephalic, atraumatic. Absent: hematoma, laceration - Eye Eye exam: Present: EOMI. Absent: conjunctival injection, nystagmus, periorbital swelling, scleral icterus, laceration to eyelids Pupils: Present: THIEN. Absent: constricted, dilated, fixed, irregular, unequal - ENT ENT exam: Present: normal exam, normal external ear exam - Neck Neck exam: Present: overall normal inspection. Absent: lymphadenopathy, meningismus, tenderness, thyromegaly - Respiratory Respiratory exam: Present: overall clear to auscultation bilaterally. Absent: accessory muscle use, chest wall tenderness - Cardiovascular Cardiovascular exam: Present: tense in general distant but overall regular rate and rhythm. Absent: carotid bruit, gallop, JVD, rubs - GI/Abdominal GI/Abdominal exam: Present: normal bowel sounds. Absent: distended, firm, guarding, hernia, mass, tenderness, rebound, soft - Extremities Exam Extremities exam: Present: normal inspection, normal capillary refill. Absent: calf tenderness, edema - Back Exam Back exam: Present: normal inspection. Absent: muscle spasm, vertebral tenderness - Neurological Exam Neurological exam: Present: alert, oriented x 3, unilateral weakness without resting or essential tremor - Psychiatric Psychiatric exam: Present: Does not appear agitated or anxious - Skin Skin exam: Present: normal color, warm, dry, intact. Absent: cyanosis, diaphoretic, rash, urticaria Result/EKG - Labs CBC & BMP: 02/25/17 08:44 02/25/17 08:44 Lab Results: I have reviewed the past 24 hour labs Labs: Laboratory Results - last 24 hr 02/25/17 02/25/17 02/25/17 12:02 15:59 16:17 POC Glucose 184 H 151 H 134 H 02/25/17 02/26/17 21:24 07:16 POC Glucose 177 H 132 H - EKG EKG results: interpreted by me, sinus rhythm <Rowena Barone - Last Filed: 02/26/17 12:43> Assessment and Plan - Time spent with patient Time spent with patient: Less than 30 minutes (1) Asthma with status asthmaticus Status: Acute Current Visit: Yes (2) Acute respiratory failure Status: Acute Current Visit: Yes (3) Diabetes mellitus Status: Chronic Current Visit: Yes (4) Hypertension Status: Chronic Assessment and plan: As per HPI increasing medications Current Visit: Yes (5) COPD (chronic obstructive pulmonary disease) Status: Chronic Current Visit: Yes (6) Hyperlipidemia Status: Chronic Current Visit: Yes Qualifiers: Hyperlipidemia type: mixed hyperlipidemia Qualified Code(s): E78.2 - Mixed hyperlipidemia (7) History of CVA (cerebrovascular accident) Status: Chronic Current Visit: Yes (8) Morbid obesity Status: Chronic Current Visit: Yes (9) Elevated troponin Status: Acute Current Visit: Yes (10) Renal insufficiency Status: Resolved Current Visit: Yes (11) Pneumonia Status: Acute Current Visit: Yes Qualifiers: Pneumonia type: due to methicillin-resistant Staphylococcus aureus (MRSA) Cardiology - PN: Subj Interval history: Mr. Eduardo is very pleasant 71-year-old gentleman who came in with acute respiratory failure and had a mild troponin elevation is all less than 2. He had an ejection fraction of 60% with no regional wall motion of her mouth 3. His severely uncontrolled blood pressure that is gotten better on multiple medications. I recommended that we increase his regimen and add hydralazine. He denies any chest pain. He is on angiotensin receptor soham or beta- soham and a calcium channel soham. He is also on clonidine. I will increase his regimen by adding hydralazine. He will need evaluation once his blood pressure is controlled for coronary artery disease. I think this likely could be done as an outpatient. Exam (Progress Note) - Constitutional Vitals: Period Temp Pulse Resp BP Sys/Pierce Pulse Ox Last 24 Hr 97.7 F-99.5 F 59-87 17-20 155-183/72-82 91-99 Exam: Morbidly obese cardiac exam is prominent for an S4 gallop. I do not hear any significant murmur I cannot appreciate his PMI. He has an ASA class IV airway. He has no lower extremity edema. His lungs are clear. I concur with the remainder of the above HPI/physical exam Result/EKG - Labs CBC & BMP: 02/25/17 08:44 02/25/17 08:44 Labs: Laboratory Results - last 24 hr 02/25/17 02/25/17 02/25/17 15:59 16:17 21:24 POC Glucose 151 H 134 H 177 H 02/26/17 02/26/17 07:16 11:38 POC Glucose 132 H 255 H
[2017-02-26] MEDS ORDERED: VALSARTAN 80 MG TABLET PO ONE (11:54)
[2017-02-26] MEDS: CLINDAMYCIN 300 MG CAPSULE PO SCH ×3 (12:00→23:44)
[2017-02-26] MEDS: cloNIDine 0.1 MG TABLET PO PRN (12:05)
--- NOTE | 2017-02-26 17:01 | Pulmonology Progress Note ---
Pulmonary - PN: Subj Interval history: This 71-year-old black male is a patient Dr. Casillas was following. Patient was on the ventilator was able to be extubated over the weekend. He does have COPD and some pneumonia with both staph and Serratia in his bronchial washings. He is continuing to improve. Today he was seen sitting up in the room on nasal oxygen and no new complaints. Exam (Progress Note) - Constitutional Vitals: Period Temp Pulse Resp BP Sys/Pierce Pulse Ox Last 24 Hr 97.7 F-99.5 F 59-87 17-20 158-183/72-82 91-99 Exam: Vital signs normal. Pupils react to light. Throat is clear. Neck supple no bruits. Chest reveals some prolonged expiratory phase no active wheezing. Heart normal rate rhythm no murmurs. Abdomen soft nontender no masses. Extremities no clubbing cyanosis edema. Calves nontender. Results - Labs CBC & BMP: 02/25/17 08:44 02/25/17 08:44 Lab Results: I have reviewed the past 24 hour labs Assessment and Plan (1) Diabetes mellitus Status: Chronic Assessment and plan: Blood sugar shown pretty good control on current regimen. Current Visit: Yes (2) COPD (chronic obstructive pulmonary disease) Status: Chronic Assessment and plan: No active bronchospasm. Continuing bronchodilators. Current Visit: Yes (3) Sleep disorder Status: Chronic Assessment and plan: CPAP at night. Current Visit: Yes (4) MRSA pneumonia Status: Acute Assessment and plan: Also grew Serratia. On appropriate antibiotics. Current Visit: Yes
[2017-02-26] MEDS: ENOXAPARIN 40 MG/0.4 ML SYRINGE SUBCUT SCH (20:11)
[2017-02-26] MEDS: ALFUZOSIN 10 MG TABLET PO SCH (20:12)
[2017-02-26] MEDS: ATORVASTATIN 20 MG TABLET PO SCH (20:12)
[2017-02-26] MEDS: QUEtiapine 100 MG TABLET PO SCH (20:12)
[2017-02-27] MEDS: ALBUTEROL 2.5 MG/3 ML NEB RESP TX SCH ×6 (02:27→23:12)
[2017-02-27 05:20] LABS: Basophils % 0.1 % (0.0-0.8); Eosinophils # 0.2 10*3/uL (0.0-0.87); Hematocrit 38.5 VOL% (42.0-52.0); Hemoglobin 12.6 GM/DL (14.0-18.0); Immature Granulocytes % 2.9 %; Immature Granulocytes Absolute 0.23 #; Lymphocytes # 1.9 10*3/uL (1.4-4.0); Lymphocytes % 23.3 % (21.2-54.2); Mean Corpuscular HGB Conc 32.7 GM/DL (32-36); Mean Corpuscular Hemoglobin 31 PG (27-34); Mean Corpuscular Volume 95.5 FL (87-102); Mean Platelet Volume 12.5 FL (9.6-12.0); Monocytes # 0.9 10*3/uL (0.11-0.8); Monocytes % 11.3 % (1.7-12.7); Neutrophils # 4.8 10*3/uL (1.4-7.4); Neutrophils % 60.4 % (38.7-73.9); Platelet Count 208 T/CUMM (130-400); Red Blood Count 4.03 MC/CUMM (3.8-5.5); Red Cell Distribution Width 12.9 % (9.3-17.3)
[2017-02-27] MEDS: CLINDAMYCIN 300 MG CAPSULE PO SCH ×4 (05:47→23:51)
[2017-02-27 05:56] LABS: Calcium 8.9 MG/DL (8.5-10.1); Magnesium 2.4 MG/DL (1.8-2.4); Osmolality,Calculated 289.8 MOS/KG (273-304); Potassium 3.9 MMOL/L (3.5-5.1)
--- NOTE | 2017-02-27 08:19 | Pulmonology Progress Note ---
Pulmonary - PN: Subj Interval history: This 71-year-old black male is a patient Dr. Casillas was following. Patient was on the ventilator was able to be extubated over the weekend. He does have COPD and some pneumonia with both staph and Serratia in his bronchial washings. He is continuing to improve. Today he was seen sitting up in the room on nasal oxygen and no new complaints. 02/27/2017 patient is alert and feels better. He is afebrile. Again he had multiple organisms in his bronchial washings with staph Serratia and Klebsiella. He has been on antibiotics to cover those for about 3 days. Needs a little more IV antibiotics for this type of organism. Will get PA and lateral chest x-ray in the morning. Can decide after that if he could go home with oral Cleocin and Cipro by Saturday. Exam (Progress Note) - Constitutional Vitals: Period Temp Pulse Resp BP Sys/Pierce Pulse Ox Last 24 Hr 97.7 F-98.9 F 58-84 16-20 137-170/70-98 91-99 Exam: Vital signs normal. Patient alert awake oriented. Pupils react to light. Throat is clear. Neck supple no bruits. Chest reveals some prolonged expiratory phase no active wheezing. Heart normal rate rhythm no murmurs. Abdomen soft nontender no masses. Extremities no clubbing cyanosis edema. Calves nontender. Results - Labs CBC & BMP: 02/27/17 05:06 02/27/17 05:06 Lab Results: I have reviewed the past 24 hour labs Assessment and Plan (1) Diabetes mellitus Status: Chronic Assessment and plan: Blood sugar shown pretty good control on current regimen. 02/27/2017 blood sugars look good. Current Visit: Yes (2) COPD (chronic obstructive pulmonary disease) Status: Chronic Assessment and plan: No active bronchospasm. Continuing bronchodilators. 02/27/2017 continuing bronchodilators along with antibiotics. Will reduce prednisone further. To recheck x-ray tomorrow. Current Visit: Yes (3) Sleep disorder Status: Chronic Assessment and plan: CPAP at night. Current Visit: Yes (4) MRSA pneumonia Status: Acute Assessment and plan: Also grew Serratia. On appropriate antibiotics. 02/27/2017 also has Serratia and Klebsiella in addition to the MRSA. Needs a couple more days of IV antibiotics. Cleocin and Cipro cover the 3 organisms. Current Visit: Yes
[2017-02-27] MEDS: INSULIN REGULAR 100 UNIT/ML SUBCUT SCH ×4 (08:33→21:11)
[2017-02-27] MEDS: INSULIN GLARGINE 100 UNIT/ML SUBCUT SCH (08:34)
[2017-02-27] MEDS: ASPIRIN EC 81 MG TABLET PO SCH (08:35)
[2017-02-27] MEDS: predniSONE 10 MG TABLET PO SCH (08:35)
[2017-02-27] MEDS: amLODIPine 10 MG TABLET PO SCH (08:35)
[2017-02-27] MEDS: PANTOPRAZOLE 40 MG TABLET PO SCH (08:35)
[2017-02-27] MEDS: CARVEDILOL 25 MG TABLET PO SCH ×2 (08:35→16:30)
[2017-02-27] MEDS: CIPROFLOXACIN INJ 400 MG in PREMIX 1 EACH IV SCH ×2 (08:36→20:52)
[2017-02-27] MEDS: VALSARTAN 160 MG TABLET PO SCH (08:36)
[2017-02-27] MEDS: LACTOBACILLUS ACIDOPHILUS/BULGARICUS CHEW TABLET PO SCH ×2 (08:41→20:50)
[2017-02-27] MEDS: clonazePAM 0.5 MG TABLET PO PRN ×2 (08:46→20:58)
--- NOTE | 2017-02-27 10:05 | Hospitalist Progress Note ---
Assessment and Plan - Time spent with patient Time spent with patient: Less than 30 minutes (1) MRSA pneumonia Status: Acute Assessment and plan: 71AAM w history of HTN, DM, HL, COPD admitted w acute respiratory failure due to MRSA pneumonia. he is now extubated and on telemetry. he is being followed by cardiology and pulmonary. dr simons to see and examine pt and further recommendations to follow. pneumonia/ARF/COPD--pt is on cipro and vanc, breathing treatments and steroids. he is now off the vent and in a regular room. his breathing is non labored and chest is clear. pulmonary is following and will determine dc date. HTN--BP are up to 178/88. cardiology has him on norvasc, coreg, diovan, and alpresoline and clonodine prn. they are cont to monitor and adjust his meds accordingly. they may do a stress test in the am. DM--BP are fairly well controlled. he is on insulin and SSI. pt is also on steroids so will cont to monitor. 02/26/2017 patient is much improved. He is on Cipro and vanc for MRSA pneumonia. Final cultures show patient is sensitive to clindamycin and Cipro. We will go ahead and switch this over into p.o. medications for preparation for discharge. His prednisone was decreased to 30 mg p.o. daily yesterday by Dr. Simons. He can go home on tapered prednisone p.o. Pulmonary is following and will see when their plan is for patient's discharge. Patient's blood pressures are improving at 160/72. Cardiology is following and adjusting his meds. There was mention yesterday by Dr. Sethi of stress test versus PCI before discharge. Spoke with cardiology [employer]LE[employer] ENGINEERING PROFESSOR and she will check with the sound engineering technician on this. Patient's diabetes is under good control on home insulin and sliding scale. We will continue to monitor since the patient is on prednisone. If patient undergo stress test today and everything looks okay, he may be able to discharge later this afternoon or tomorrow. Dr. Simons to see and examine patient and further recommendations to follow. 02/27/2017 patient is doing great. He is on Cleocin and Cipro for his MRSA pneumonia per culture results. Patient has been on 30 mg of prednisone daily. Will decrease this to [address] Howard from pulmonary has seen the patient and he recommended at least another day of IV antibiotics for the organisms from his bronchial washings. He will check an x-ray in the morning and if this looks okay patient can be discharged tomorrow. Patient's labs, blood sugars, and blood pressures all look good. He will need to follow-up with Dr. Sethi from cardiology in 1-2 weeks. They have asked that he check his blood pressure at home and bring his log to that office visit. He will also need to follow-up with Dr. Howard with a chest x-ray. Plan for DC tomorrow if okay with pulmonary and cardiology. Patient's case was discussed with Dr. Simons and further recommendations to follow. Current Visit: Yes (2) Acute respiratory failure Status: Acute Current Visit: Yes (3) Diabetes mellitus Status: Chronic Current Visit: Yes (4) Hypertension Status: Chronic Current Visit: Yes (5) COPD (chronic obstructive pulmonary disease) Status: Chronic Current Visit: Yes (6) Hyperlipidemia Status: Chronic Current Visit: Yes Qualifiers: Hyperlipidemia type: mixed hyperlipidemia Qualified Code(s): E78.2 - Mixed hyperlipidemia (7) History of CVA (cerebrovascular accident) Status: Chronic Current Visit: Yes Hospitalist: Subjective Interval history: Patient is feeling so much better. He states he is ready to go home but Dr. Howard told him he could go tomorrow if his chest x-ray looks okay. He is ambulating with PT and rolling walker which she has at home. He is eating and having bowel movements. He denies any fevers, chest pain, or shortness of breath. Exam - Constitutional Vitals: Period Temp Pulse Resp BP Sys/Pierce Pulse Ox Last 24 Hr 97.7 F-98.9 F 58-84 16-20 137-170/70-98 91-99 Exam: 71AAM, NAD, alert and oriented chest clear cv rrr abd soft nt ext mild edema Results - Labs CBC & BMP: 02/27/17 05:06 02/27/17 05:06 Lab Results: I have reviewed the past 24 hour labs
[2017-02-27] MEDS ORDERED: predniSONE 20 MG TABLET PO SCH (10:30)
--- NOTE | 2017-02-27 14:39 | Cardiology Progress Note ---
<Nahomy Paniagua E - Last Filed: 02/27/17 14:40> Assessment and Plan - Time spent with patient Time spent with patient: Less than 30 minutes (1) Acute respiratory failure Status: Acute Assessment and plan: SEE PLAN OF CARE LISTED BELOW. Current Visit: Yes (2) Elevated troponin Status: Acute Assessment and plan: SEE PLAN OF CARE LISTED BELOW. Current Visit: Yes (3) Hypertension Status: Chronic Assessment and plan: SEE PLAN OF CARE LISTED BELOW. Current Visit: Yes (4) Hyperlipidemia Status: Chronic Assessment and plan: SEE PLAN OF CARE LISTED BELOW. Current Visit: Yes Qualifiers: Hyperlipidemia type: mixed hyperlipidemia Qualified Code(s): E78.2 - Mixed hyperlipidemia (5) Diabetes mellitus Status: Chronic Assessment and plan: SEE PLAN OF CARE LISTED BELOW. Current Visit: Yes (6) Renal insufficiency Status: Resolved Assessment and plan: SEE PLAN OF CARE LISTED BELOW. Current Visit: Yes (7) Morbid obesity Status: Chronic Assessment and plan: SEE PLAN OF CARE LISTED BELOW. Current Visit: Yes (8) Sleep disorder Status: Chronic Assessment and plan: SEE PLAN OF CARE LISTED BELOW. Current Visit: Yes (9) History of CVA (cerebrovascular accident) Status: Chronic Assessment and plan: SEE PLAN OF CARE LISTED BELOW. Current Visit: Yes (10) Fever Status: Acute Assessment and plan: SEE PLAN OF CARE LISTED BELOW. 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 Hendrix PCP: DR. CASTRO SUMMARY: Mr. Morse, 71BM, has history of: diabetes, hypertension, dyslipidemia, CVA (June 2015 affecting right side), obesity, COPD and asthma. He was admitted from outside hospital with respiratory distress, requiring intubation, and has been diagnosed with MRSA pneumonia. Initially, EKG was abnormal but this has since normalized. Cardiac biomarkers are mildly abnormal in the setting of underlying renal insufficiency. Chest x-ray abnormal , pulmonary following. February 26, 2017: Mr. Morse is seen sitting up in the bedside chair in no acute distress. He denies chest pain, shortness of breath, palpitations, or dizziness. His blood pressure continues to run high, this morning 137/70, 141/ 75 at noon. He has been afebrile for the past 24 hours. Blood cultures are negative at 1 day, final results pending. Urine culture final report shows no growth at 48 hours. Telemetry monitoring currently shows sinus rhythm with heart rates in the 60s. ASSESSMENT/PLAN: 1. ACUTE RESPIRATORY FAILURE -doing well post intubation. Chest is relatively clear. Pulmonary is following. Dr. Howard from pulmonary has seen the patient and he recommended at least another day of IV antibiotics for the organisms from his bronchial washings. He will check an x-ray in the morning and if this looks okay patient can be discharged tomorrow. 2. ELEVATED TROPONIN -these were mildly elevated in the setting of hypoxia and hypertension. He had an ejection fraction of 60% with no regional wall motion abnormality. He will need further evaluation and risk stratification once his blood pressure is controlled for coronary artery disease. We can arrange for this to be done as an outpatient. 3. HYPERTENSION -Norvasc 10 mg was initiated 3 days ago and will take 5 days to see the maximum benefit. Both hydralazine and Cardene appear to be somewhat ineffective. Diovan was increased and hydralazine was added. Blood pressure is better controlled today, although still not quite at target. We will continue to adjust his medications. He will need to continue to monitor his blood pressure once he is discharged and bring his blood pressure log to his follow up with Dr. Hendrix. 4. DYSLIPIDEMIA - continue Atorvastatin. LDL 78. 5. DIABETES - holding Metformin. Sliding scale insulin. 6. RENAL INSUFFICIENCY - resolved. Creatinine has normalized. 7. MORBID OBESITY - dietary counseling prior to discharge 8. SUSPECTED SLEEP APNEA - will need outpatient sleep study eventually. Given his habitus, I strongly suspect he has obstructive sleep apnea. 9. HISTORY OF CVA - continue current plan of care 10. FEVER -He has been afebrile for the past 24 hours. Will further discuss with Dr. Barone and await his recommendations. Exam (Progress Note) - Constitutional Vitals: Period Temp Pulse Resp BP Sys/Pierce Pulse Ox Last 24 Hr 96.6 F-98.3 F 58-84 15-20 137-160/70-98 93-99 Exam: General appearance: Obese, no acute distress - Head Head exam: Present: normal inspection, normocephalic, atraumatic. Absent: hematoma, laceration - Eye Eye exam: Present: EOMI. Absent: conjunctival injection, nystagmus, periorbital swelling, scleral icterus, laceration to eyelids Pupils: Present: THIEN. Absent: constricted, dilated, fixed, irregular, unequal - ENT ENT exam: Present: normal exam, normal external ear exam - Neck Neck exam: Present: overall normal inspection. Absent: lymphadenopathy, meningismus, tenderness, thyromegaly - Respiratory Respiratory exam: Present: overall clear to auscultation bilaterally. Absent: accessory muscle use, chest wall tenderness - Cardiovascular Cardiovascular exam: Present: regular rate and rhythm. Absent: carotid bruit, JVD, rubs, murmur - GI/Abdominal GI/Abdominal exam: Present: normal bowel sounds. Absent: distended, firm, guarding, hernia, mass, tenderness, rebound, soft - Extremities Exam Extremities exam: Present: normal inspection, normal capillary refill. Absent: calf tenderness, edema - Back Exam Back exam: Present: normal inspection. Absent: muscle spasm, vertebral tenderness - Neurological Exam Neurological exam: Present: alert, oriented x 3, unilateral weakness without resting or essential tremor - Psychiatric Psychiatric exam: Present: Does not appear agitated or anxious - Skin Skin exam: Present: normal color, warm, dry, intact. Absent: cyanosis, diaphoretic, rash, urticaria Result/EKG - Labs CBC & BMP: 02/27/17 05:06 02/27/17 05:06 Lab Results: I have reviewed the past 24 hour labs Labs: Laboratory Results - last 24 hr 02/26/17 02/26/17 02/27/17 15:55 19:44 05:06 WBC 8.0 RBC 4.03 Hgb 12.6 L Hct 38.5 L MCV 95.5 MCH 31 MCHC 32.7 RDW 12.9 Plt Count 208 D MPV 12.5 H Neut % (Auto) 60.4 Lymph % (Auto) 23.3 [place] % (Auto) 11.3 Eos % (Auto) 2.0 Baso % (Auto) 0.1 Neut # (Auto) 4.8 Lymph # (Auto) 1.9 [place] # (Auto) 0.9 H Eos # (Auto) 0.2 Baso # (Auto) 0.0 Immature Gran % 2.9 Nucleated RBC % 0.0 Immature Gran # 0.23 Nucleated RBCs # 0.00 Sodium Potassium Chloride Carbon Dioxide Anion Gap BUN Creatinine GFR Calculation BUN/Creatinine Ratio Glucose POC Glucose 108 H 201 H Calculated Osmolality Calcium Magnesium 02/27/17 02/27/17 02/27/17 05:06 07:08 11:14 WBC RBC Hgb Hct MCV MCH MCHC RDW Plt Count MPV Neut % (Auto) Lymph % (Auto) [place] % (Auto) Eos % (Auto) Baso % (Auto) Neut # (Auto) Lymph # (Auto) [place] # (Auto) Eos # (Auto) Baso # (Auto) Immature Gran % Nucleated RBC % Immature Gran # Nucleated RBCs # Sodium 144 Potassium 3.9 Chloride 108 H Carbon Dioxide 26 Anion Gap 13.9 BUN 21 H Creatinine 1.10 GFR Calculation 110 BUN/Creatinine Ratio 19.00 Glucose 112 H POC Glucose 131 H 232 H Calculated Osmolality 289.8 Calcium 8.9 Magnesium 2.4 - EKG EKG results: interpreted by me, sinus rhythm <Rowena Barone - Last Filed: 02/27/17 15:06> Assessment and Plan (1) Asthma with status asthmaticus Status: Acute Current Visit: Yes (2) Acute respiratory failure Status: Acute Current Visit: Yes (3) Diabetes mellitus Status: Chronic Current Visit: Yes (4) Hypertension Status: Chronic Current Visit: Yes (5) COPD (chronic obstructive pulmonary disease) Status: Chronic Current Visit: Yes (6) Hyperlipidemia Status: Chronic Current Visit: Yes Qualifiers: Hyperlipidemia type: mixed hyperlipidemia Qualified Code(s): E78.2 - Mixed hyperlipidemia (7) History of CVA (cerebrovascular accident) Status: Chronic Current Visit: Yes (8) Morbid obesity Status: Chronic Current Visit: Yes (9) Elevated troponin Status: Resolved Current Visit: Yes (10) Renal insufficiency Status: Resolved Current Visit: Yes (11) Pneumonia Status: Acute Current Visit: Yes Qualifiers: Pneumonia type: due to methicillin-resistant Staphylococcus aureus (MRSA) Cardiology - PN: Subj Interval history: Saw and examined the patient with Ms. Paniagua. He looks much better. His blood pressures come down very nicely is 141/75. Anticipate that she make a lower as he improves. We may need to decrease his blood pressure medicines. I told him today about the importance of avoiding salty foods salt and to monitor his blood pressure at home goal of less than 135/85. After discharge he will need follow-up and likely need a stress test. Medical therapy until he has time to recover and I suspect he will feel much better with blood pressure control. Exam (Progress Note) - Constitutional Vitals: Period Temp Pulse Resp BP Sys/Pierce Pulse Ox Last 24 Hr 96.6 F-98.3 F 58-84 15-20 137-160/70-98 93-99 Exam: Patient has a regular rate and rhythm he has an S4. His lung exam continues to improve. Remainder above I agree with. He has no lower extremity edema. Result/EKG - Labs CBC & BMP: 02/27/17 05:06 02/27/17 05:06 Labs: Laboratory Results - last 24 hr 02/26/17 02/26/17 02/27/17 15:55 19:44 05:06 WBC 8.0 RBC 4.03 Hgb 12.6 L Hct 38.5 L MCV 95.5 MCH 31 MCHC 32.7 RDW 12.9 Plt Count 208 D MPV 12.5 H Neut % (Auto) 60.4 Lymph % (Auto) 23.3 [place] % (Auto) 11.3 Eos % (Auto) 2.0 Baso % (Auto) 0.1 Neut # (Auto) 4.8 Lymph # (Auto) 1.9 [place] # (Auto) 0.9 H Eos # (Auto) 0.2 Baso # (Auto) 0.0 Immature Gran % 2.9 Nucleated RBC % 0.0 Immature Gran # 0.23 Nucleated RBCs # 0.00 Sodium Potassium Chloride Carbon Dioxide Anion Gap BUN Creatinine GFR Calculation BUN/Creatinine Ratio Glucose POC Glucose 108 H 201 H Calculated Osmolality Calcium Magnesium 02/27/17 02/27/17 02/27/17 05:06 07:08 11:14 WBC RBC Hgb Hct MCV MCH MCHC RDW Plt Count MPV Neut % (Auto) Lymph % (Auto) [place] % (Auto) Eos % (Auto) Baso % (Auto) Neut # (Auto) Lymph # (Auto) [place] # (Auto) Eos # (Auto) Baso # (Auto) Immature Gran % Nucleated RBC % Immature Gran # Nucleated RBCs # Sodium 144 Potassium 3.9 Chloride 108 H Carbon Dioxide 26 Anion Gap 13.9 BUN 21 H Creatinine 1.10 GFR Calculation 110 BUN/Creatinine Ratio 19.00 Glucose 112 H POC Glucose 131 H 232 H Calculated Osmolality 289.8 Calcium 8.9 Magnesium 2.4
[2017-02-27] MEDS: ALFUZOSIN 10 MG TABLET PO SCH (20:50)
[2017-02-27] MEDS: ENOXAPARIN 40 MG/0.4 ML SYRINGE SUBCUT SCH (20:50)
[2017-02-27] MEDS: QUEtiapine 100 MG TABLET PO SCH (20:50)
[2017-02-27] MEDS: ATORVASTATIN 20 MG TABLET PO SCH (20:50)
[2017-02-28] MEDS: ALBUTEROL 2.5 MG/3 ML NEB RESP TX SCH ×5 (03:12→20:38)
[2017-02-28 04:36] LABS: Basophils % 0.1 % (0.0-0.8); Eosinophils # 0.1 10*3/uL (0.0-0.87); Eosinophils % 1.8 % (0.00-10.9); Hematocrit 34.5 VOL% (42.0-52.0); Hemoglobin 11.5 GM/DL (14.0-18.0); Immature Granulocytes % 1.7 %; Immature Granulocytes Absolute 0.12 #; Lymphocytes # 1.8 10*3/uL (1.4-4.0); Lymphocytes % 24.6 % (21.2-54.2); Mean Corpuscular HGB Conc 33.3 GM/DL (32-36); Mean Corpuscular Hemoglobin 32 PG (27-34); Mean Platelet Volume 12.8 FL (9.6-12.0); Monocytes # 0.9 10*3/uL (0.11-0.8); Monocytes % 12.2 % (1.7-12.7); Neutrophils # 4.2 10*3/uL (1.4-7.4); Neutrophils % 59.6 % (38.7-73.9); Platelet Count 173 T/CUMM (130-400); Red Blood Count 3.63 MC/CUMM (3.8-5.5); Red Cell Distribution Width 12.6 % (9.3-17.3); White Blood Count 7.1 T/CUMM (4-12)
[2017-02-28 05:08] LABS: Calcium 8.6 MG/DL (8.5-10.1); Magnesium 2.1 MG/DL (1.8-2.4); Potassium 3.8 MMOL/L (3.5-5.1)
[2017-02-28] MEDS: CLINDAMYCIN 300 MG CAPSULE PO SCH ×4 (06:11→23:05)
--- NOTE | 2017-02-28 07:48 | XRay Report ---
XR chest 2V Indication: Pneumonia Comparison: Chest x-ray 02/24/2017. Technique: PA and lateral chest x-ray was performed. Findings: Lung bases are now clear. Mid and upper lungs remain clear. Heart size is borderline. Pulmonary vasculature appears within normal limits. Bones and soft tissues demonstrate no significant abnormalities. Impression: 1. No active cardiopulmonary disease. Interval clearing of the lung bases is demonstrated. 02/28/2017 7:43 AM PROCEDURE INTERPRETED AT [facility] [place] DEPARTMENT OF RADIOLOGY Final Report Signed by: Dr. Russ Vega
--- NOTE | 2017-02-28 07:54 | Pulmonology Progress Note ---
Pulmonary - PN: Subj Interval history: This 71-year-old black male is a patient Dr. Casillas was following. Patient was on the ventilator was able to be extubated over the weekend. He does have COPD and some pneumonia with both staph and Serratia in his bronchial washings. He is continuing to improve. Today he was seen sitting up in the room on nasal oxygen and no new complaints. 02/27/2017 patient is alert and feels better. He is afebrile. Again he had multiple organisms in his bronchial washings with staph Serratia and Klebsiella. He has been on antibiotics to cover those for about 3 days. Needs a little more IV antibiotics for this type of organism. Will get PA and lateral chest x-ray in the morning. Can decide after that if he could go home with oral Cleocin and Cipro by Saturday. 02/28/2017 patient feeling better and is afebrile. Chest x-ray looks better. I would suggest another day of IV antibiotics with discharge tomorrow on oral medications because of the combination of bacteria that grew in his sputum. Exam (Progress Note) - Constitutional Vitals: Period Temp Pulse Resp BP Sys/Pierce Pulse Ox Last 24 Hr 96.6 F-98.6 F 56-73 15-20 141-165/71-84 95-100 Exam: Vital signs normal. Patient alert awake oriented. Pupils react to light. Throat is clear. Neck supple no bruits. Chest reveals some prolonged expiratory phase no active wheezing. Heart normal rate rhythm no murmurs. Abdomen soft nontender no masses. Extremities no clubbing cyanosis edema. Calves nontender. Little change from yesterday. Results - Labs CBC & BMP: 02/28/17 03:49 02/28/17 03:49 Lab Results: I have reviewed the past 24 hour labs - Diagnostic Findings Procedure: Chest x-ray: image reviewed by me (Chest x-ray is essentially clear.) Assessment and Plan (1) Diabetes mellitus Status: Chronic Assessment and plan: Blood sugar shown pretty good control on current regimen. 02/27/2017 blood sugars look good. 02/28/2017 blood sugars controlled. Current Visit: Yes (2) COPD (chronic obstructive pulmonary disease) Status: Chronic Assessment and plan: No active bronchospasm. Continuing bronchodilators. 02/27/2017 continuing bronchodilators along with antibiotics. Will reduce prednisone further. To recheck x-ray tomorrow. 02/28/2017 no bronchospasm. Stop prednisone. Current Visit: Yes (3) Sleep disorder Status: Chronic Assessment and plan: CPAP at night. Current Visit: Yes (4) MRSA pneumonia Status: Acute Assessment and plan: Also grew Serratia. On appropriate antibiotics. 02/27/2017 also has Serratia and Klebsiella in addition to the MRSA. Needs a couple more days of IV antibiotics. Cleocin and Cipro cover the 3 organisms. 02/28/2017 actually multiple organisms. Needs another day of IV antibiotics and then should be discharged tomorrow. Current Visit: Yes
[2017-02-28] MEDS: INSULIN GLARGINE 100 UNIT/ML SUBCUT SCH (08:27)
[2017-02-28] MEDS: VALSARTAN 160 MG TABLET PO SCH (08:28)
[2017-02-28] MEDS: ASPIRIN EC 81 MG TABLET PO SCH (08:28)
[2017-02-28] MEDS: LACTOBACILLUS ACIDOPHILUS/BULGARICUS CHEW TABLET PO SCH ×2 (08:28→21:01)
[2017-02-28] MEDS: amLODIPine 10 MG TABLET PO SCH (08:28)
[2017-02-28] MEDS: PANTOPRAZOLE 40 MG TABLET PO SCH (08:29)
[2017-02-28] MEDS: CARVEDILOL 25 MG TABLET PO SCH ×2 (08:29→16:44)
[2017-02-28] MEDS: CIPROFLOXACIN INJ 400 MG in PREMIX 1 EACH IV SCH ×2 (08:33→21:00)
[2017-02-28] MEDS: INSULIN REGULAR 100 UNIT/ML SUBCUT SCH ×4 (08:33→21:53)
--- NOTE | 2017-02-28 11:18 | Cardiology Progress Note ---
<Nahomy Paniagua E - Last Filed: 02/28/17 11:11> Assessment and Plan - Time spent with patient Time spent with patient: Less than 30 minutes (1) Acute respiratory failure Status: Acute Assessment and plan: SEE PLAN OF CARE LISTED BELOW. Current Visit: Yes (2) Elevated troponin Status: Resolved Assessment and plan: SEE PLAN OF CARE LISTED BELOW. Current Visit: Yes (3) Hypertension Status: Chronic Assessment and plan: SEE PLAN OF CARE LISTED BELOW. Current Visit: Yes (4) Hyperlipidemia Status: Chronic Assessment and plan: SEE PLAN OF CARE LISTED BELOW. Current Visit: Yes Qualifiers: Hyperlipidemia type: mixed hyperlipidemia Qualified Code(s): E78.2 - Mixed hyperlipidemia (5) Diabetes mellitus Status: Chronic Assessment and plan: SEE PLAN OF CARE LISTED BELOW. Current Visit: Yes (6) Renal insufficiency Status: Resolved Assessment and plan: SEE PLAN OF CARE LISTED BELOW. Current Visit: Yes (7) Morbid obesity Status: Chronic Assessment and plan: SEE PLAN OF CARE LISTED BELOW. Current Visit: Yes (8) Sleep disorder Status: Chronic Assessment and plan: SEE PLAN OF CARE LISTED BELOW. Current Visit: Yes (9) History of CVA (cerebrovascular accident) Status: Chronic Assessment and plan: SEE PLAN OF CARE LISTED BELOW. Current Visit: Yes (10) Fever Status: Acute Assessment and plan: SEE PLAN OF CARE LISTED BELOW. Current Visit: Yes Cardiology - PN: Subj Interval history: [employer]IDENT: New to Dr. Hendrix PCP: DR. CASTRO SUMMARY: Mr. Morse, 71BM, has history of: diabetes, hypertension, dyslipidemia, CVA (June 2015 affecting right side), obesity, COPD and asthma. He was admitted from outside hospital with respiratory distress, requiring intubation, and has been diagnosed with MRSA pneumonia. Initially, EKG was abnormal but this has since normalized. Cardiac biomarkers are mildly abnormal in the setting of underlying renal insufficiency. Chest x-ray abnormal , pulmonary following. February 26, 2017: Mr. Morse is seen sitting up at the bedside in no acute distress. He denies chest pain, shortness of breath, palpitations, or dizziness. His blood pressures were much improved yesterday morning, but have been a little elevated last night and today. He was instructed to check his blood pressure at home for a goal of less than 135/85. After discharge he will need follow-up and likely need a stress test. ASSESSMENT/PLAN: 1. ACUTE RESPIRATORY FAILURE -doing well post intubation. Chest is relatively clear. Pulmonary is following. Dr. Howard from pulmonary has seen the patient and he recommended at least another day of IV antibiotics for the organisms from his bronchial washings. 2. ELEVATED TROPONIN -these were mildly elevated in the setting of hypoxia and hypertension. He had an ejection fraction of 60% with no regional wall motion abnormality. He will need further evaluation and risk stratification once his blood pressure is controlled for coronary artery disease. We can arrange for this to be done as an outpatient. 3. HYPERTENSION -He was started on Norvasc 10mg po daily. Both hydralazine and Cardene appear to be somewhat ineffective. Diovan was increased and hydralazine was added. Blood pressure was better controlled yesterday, but is a little elevated today - 166/91 this morning. We will continue to adjust his medications. He will need to continue to monitor his blood pressure once he is discharged and bring his blood pressure log to his follow up with Dr. Hendrix. He was also instructed on the importance of avoiding salt in his diet. 4. DYSLIPIDEMIA - continue Atorvastatin. LDL 78. 5. DIABETES - holding Metformin. Sliding scale insulin. 6. RENAL INSUFFICIENCY - resolved. Creatinine has normalized. 7. MORBID OBESITY - dietary counseling prior to discharge 8. SUSPECTED SLEEP APNEA - will need outpatient sleep study eventually. Given his habitus, I strongly suspect he has obstructive sleep apnea. 9. HISTORY OF CVA - continue current plan of care 10. FEVER -He has been afebrile for the past 24 hours. Will further discuss with Dr. Barone and await his recommendations. Exam (Progress Note) - Constitutional Vitals: Period Temp Pulse Resp BP Sys/Pierce Pulse Ox Last 24 Hr 96.6 F-98.6 F 56-73 15-20 141-166/71-91 95-100 Exam: General appearance: Obese, no acute distress - Head Head exam: Present: normal inspection, normocephalic, atraumatic. Absent: hematoma, laceration - Eye Eye exam: Present: EOMI. Absent: conjunctival injection, nystagmus, periorbital swelling, scleral icterus, laceration to eyelids Pupils: Present: THIEN. Absent: constricted, dilated, fixed, irregular, unequal - ENT ENT exam: Present: normal exam, normal external ear exam - Neck Neck exam: Present: overall normal inspection. Absent: lymphadenopathy, meningismus, tenderness, thyromegaly - Respiratory Respiratory exam: Present: overall clear to auscultation bilaterally. Absent: accessory muscle use, chest wall tenderness - Cardiovascular Cardiovascular exam: Present: regular rate and rhythm, S4 present. Absent: carotid bruit, JVD, rubs, murmur - GI/Abdominal GI/Abdominal exam: Present: normal bowel sounds. Absent: distended, firm, guarding, hernia, mass, tenderness, rebound, soft - Extremities Exam Extremities exam: Present: normal inspection, normal capillary refill. Absent: calf tenderness, edema - Back Exam Back exam: Present: normal inspection. Absent: muscle spasm, vertebral tenderness - Neurological Exam Neurological exam: Present: alert, oriented x 3, unilateral weakness without resting or essential tremor - Psychiatric Psychiatric exam: Present: Does not appear agitated or anxious - Skin Skin exam: Present: normal color, warm, dry, intact. Absent: cyanosis, diaphoretic, rash, urticaria Result/EKG - Labs CBC & BMP: 02/28/17 03:49 02/28/17 03:49 Lab Results: I have reviewed the past 24 hour labs Labs: Laboratory Results - last 24 hr 02/27/17 02/27/17 02/27/17 11:14 15:39 20:54 WBC RBC Hgb Hct MCV MCH MCHC RDW Plt Count MPV Neut % (Auto) Lymph % (Auto) [place] % (Auto) Eos % (Auto) Baso % (Auto) Neut # (Auto) Lymph # (Auto) [place] # (Auto) Eos # (Auto) Baso # (Auto) Immature Gran % Nucleated RBC % Immature Gran # Nucleated RBCs # Sodium Potassium Chloride Carbon Dioxide Anion Gap BUN Creatinine GFR Calculation BUN/Creatinine Ratio Glucose POC Glucose 232 H 165 H 143 H Calculated Osmolality Calcium Magnesium 02/28/17 02/28/17 02/28/17 03:49 03:49 08:10 WBC 7.1 RBC 3.63 L Hgb 11.5 L Hct 34.5 L MCV 95.0 MCH 32 MCHC 33.3 RDW 12.6 Plt Count 173 MPV 12.8 H Neut % (Auto) 59.6 Lymph % (Auto) 24.6 [place] % (Auto) 12.2 Eos % (Auto) 1.8 Baso % (Auto) 0.1 Neut # (Auto) 4.2 Lymph # (Auto) 1.8 [place] # (Auto) 0.9 H Eos # (Auto) 0.1 Baso # (Auto) 0.0 Immature Gran % 1.7 Nucleated RBC % 0.0 Immature Gran # 0.12 Nucleated RBCs # 0.00 Sodium 143 Potassium 3.8 Chloride 105 Carbon Dioxide 28 Anion Gap 13.8 BUN 17 Creatinine 0.90 GFR Calculation 140 BUN/Creatinine Ratio 18.00 Glucose 101 POC Glucose 132 H Calculated Osmolality 286.0 Calcium 8.6 Magnesium 2.1 - EKG EKG results: interpreted by me, sinus rhythm <Rowena Barone - Last Filed: 02/28/17 13:55> Assessment and Plan (1) Asthma with status asthmaticus Status: Acute Current Visit: Yes (2) Acute respiratory failure Status: Acute Current Visit: Yes (3) Diabetes mellitus Status: Chronic Current Visit: Yes (4) Hypertension Status: Chronic Current Visit: Yes (5) COPD (chronic obstructive pulmonary disease) Status: Chronic Current Visit: Yes (6) Hyperlipidemia Status: Chronic Current Visit: Yes Qualifiers: Hyperlipidemia type: mixed hyperlipidemia Qualified Code(s): E78.2 - Mixed hyperlipidemia (7) History of CVA (cerebrovascular accident) Status: Chronic Current Visit: Yes (8) Morbid obesity Status: Chronic Current Visit: Yes (9) Elevated troponin Status: Resolved Current Visit: Yes (10) Renal insufficiency Status: Resolved Current Visit: Yes (11) Pneumonia Status: Acute Current Visit: Yes Qualifiers: Pneumonia type: due to methicillin-resistant Staphylococcus aureus (MRSA) Cardiology - PN: Subj Interval history: Mr. Morse has no complaints today he looks quite good. His blood pressure slowly trending down and I would not make any further adjustments to his medications. From a cardiovascular standpoint I think he stable I would continue his current blood pressure regimen and have him follow-up with Dr. Hendrix in 1 month he will likely need an ischemic screening test. He has risk factors but I would not want to proceed with any further workup until he has time to recover from his pneumonia. His blood pressure still bounce around a little bit but overall is really good. I recommend he check his blood pressure daily at alternating times a day and take this log with him to see Dr. Hendrix. He is to notify us if any chest discomfort occurs. Exam (Progress Note) - Constitutional Vitals: Period Temp Pulse Resp BP Sys/Pierce Pulse Ox Last 24 Hr 97.8 F-98.6 F 56-73 15-19 142-166/71-91 95-100 Exam: S1-S2 has an S4. PMI is within normal limits. No lower extremity edema neurological exam is normal Result/EKG - Labs CBC & BMP: 02/28/17 03:49 02/28/17 03:49 Labs: Laboratory Results - last 24 hr 02/27/17 02/27/17 02/28/17 15:39 20:54 03:49 WBC 7.1 RBC 3.63 L Hgb 11.5 L Hct 34.5 L MCV 95.0 MCH 32 MCHC 33.3 RDW 12.6 Plt Count 173 MPV 12.8 H Neut % (Auto) 59.6 Lymph % (Auto) 24.6 [place] % (Auto) 12.2 Eos % (Auto) 1.8 Baso % (Auto) 0.1 Neut # (Auto) 4.2 Lymph # (Auto) 1.8 [place] # (Auto) 0.9 H Eos # (Auto) 0.1 Baso # (Auto) 0.0 Immature Gran % 1.7 Nucleated RBC % 0.0 Immature Gran # 0.12 Nucleated RBCs # 0.00 Sodium Potassium Chloride Carbon Dioxide Anion Gap BUN Creatinine GFR Calculation BUN/Creatinine Ratio Glucose POC Glucose 165 H 143 H Calculated Osmolality Calcium Magnesium 02/28/17 02/28/17 02/28/17 03:49 08:10 10:57 WBC RBC Hgb Hct MCV MCH MCHC RDW Plt Count MPV Neut % (Auto) Lymph % (Auto) [place] % (Auto) Eos % (Auto) Baso % (Auto) Neut # (Auto) Lymph # (Auto) [place] # (Auto) Eos # (Auto) Baso # (Auto) Immature Gran % Nucleated RBC % Immature Gran # Nucleated RBCs # Sodium 143 Potassium 3.8 Chloride 105 Carbon Dioxide 28 Anion Gap 13.8 BUN 17 Creatinine 0.90 GFR Calculation 140 BUN/Creatinine Ratio 18.00 Glucose 101 POC Glucose 132 H 241 H Calculated Osmolality 286.0 Calcium 8.6 Magnesium 2.1
--- NOTE | 2017-02-28 14:02 | Hospitalist Progress Note ---
Assessment and Plan (1) Asthma with status asthmaticus Status: Acute Assessment and plan: The patient continues therapy of asthma and COPD. Dr. Howard has requested that we continue IV antibiotics for treatment of complex organisms found in the sputum culture. Current Visit: Yes (2) Pneumonia Status: Acute Current Visit: Yes Qualifiers: Pneumonia type: due to methicillin-resistant Staphylococcus aureus (MRSA) Hospitalist: Subjective Interval history: Mr. Morse continues therapy of COPD exacerbation and pneumonia. He denies any chest pain or palpitations today. Exam - Constitutional Vitals: Period Temp Pulse Resp BP Sys/Pierce Pulse Ox Last 24 Hr 97.8 F-98.6 F 56-73 15-19 142-166/71-91 95-100 General appearance: mild distress - Head Head exam: Present: normocephalic - Respiratory Respiratory exam: Present: prolonged expiratory phase - Cardiovascular Cardiovascular exam: Present: regular rate and rhythm - GI/Abdominal GI/Abdominal exam: Present: normal bowel sounds Results - Labs CBC & BMP: 02/28/17 03:49 02/28/17 03:49 Lab Results: I have reviewed the past 24 hour labs
[2017-02-28] MEDS: QUEtiapine 100 MG TABLET PO SCH (21:01)
[2017-02-28] MEDS: ENOXAPARIN 40 MG/0.4 ML SYRINGE SUBCUT SCH (21:01)
[2017-02-28] MEDS: ATORVASTATIN 20 MG TABLET PO SCH (21:01)
[2017-02-28] MEDS: ALFUZOSIN 10 MG TABLET PO SCH (21:01)
[2017-02-28] MEDS: clonazePAM 0.5 MG TABLET PO PRN (21:52)
[2017-03-01] MEDS: ALBUTEROL 2.5 MG/3 ML NEB RESP TX SCH ×4 (00:41→11:25)
[2017-03-01 04:55] LABS: Basophils % 0.2 % (0.0-0.8); Eosinophils # 0.3 10*3/uL (0.0-0.87); Eosinophils % 4.1 % (0.00-10.9); Hematocrit 35.2 VOL% (42.0-52.0); Hemoglobin 11.5 GM/DL (14.0-18.0); Immature Granulocytes % 1.3 %; Immature Granulocytes Absolute 0.08 #; Lymphocytes # 1.8 10*3/uL (1.4-4.0); Lymphocytes % 27.8 % (21.2-54.2); Mean Corpuscular HGB Conc 32.7 GM/DL (32-36); Mean Corpuscular Hemoglobin 31 PG (27-34); Mean Corpuscular Volume 95.7 FL (87-102); Mean Platelet Volume 12.8 FL (9.6-12.0); Monocytes # 0.7 10*3/uL (0.11-0.8); Monocytes % 11.3 % (1.7-12.7); Neutrophils # 3.5 10*3/uL (1.4-7.4); Neutrophils % 55.3 % (38.7-73.9); Platelet Count 173 T/CUMM (130-400); Red Blood Count 3.68 MC/CUMM (3.8-5.5); Red Cell Distribution Width 12.7 % (9.3-17.3); White Blood Count 6.3 T/CUMM (4-12)
[2017-03-01 05:29] LABS: Calcium 8.1 MG/DL (8.5-10.1); Magnesium 2.1 MG/DL (1.8-2.4); Potassium 3.7 MMOL/L (3.5-5.1)
[2017-03-01] MEDS: CLINDAMYCIN 300 MG CAPSULE PO SCH ×2 (05:54→13:08)
--- NOTE | 2017-03-01 07:26 | Pulmonology Progress Note ---
Pulmonary - PN: Subj Interval history: This 71-year-old black male is a patient Dr. Casillas was following. Patient was on the ventilator was able to be extubated over the weekend. He does have COPD and some pneumonia with both staph and Serratia in his bronchial washings. He is continuing to improve. Today he was seen sitting up in the room on nasal oxygen and no new complaints. 02/27/2017 patient is alert and feels better. He is afebrile. Again he had multiple organisms in his bronchial washings with staph Serratia and Klebsiella. He has been on antibiotics to cover those for about 3 days. Needs a little more IV antibiotics for this type of organism. Will get PA and lateral chest x-ray in the morning. Can decide after that if he could go home with oral Cleocin and Cipro by Saturday. 02/28/2017 patient feeling better and is afebrile. Chest x-ray looks better. I would suggest another day of IV antibiotics with discharge tomorrow on oral medications because of the combination of bacteria that grew in his sputum. 03/01/2017 chest x-ray looked good yesterday. Ready for discharge. Probably 3 more days of oral antibiotics post discharge. Follow-up with Dr. Morgan in 2 weeks or so. Follow-up with Dr. Casillas in 4-6 weeks. Exam (Progress Note) - Constitutional Vitals: Period Temp Pulse Resp BP Sys/Pierce Pulse Ox Last 24 Hr 97.7 F-98.2 F 53-76 15-18 140-166/63-91 90-100 Exam: Vital signs normal. Patient alert awake oriented. Pupils react to light. Throat is clear. Neck supple no bruits. Chest reveals some prolonged expiratory phase no active wheezing. Heart normal rate rhythm no murmurs. Abdomen soft nontender no masses. Extremities no clubbing cyanosis edema. Calves nontender. Results - Labs CBC & BMP: 03/01/17 03:48 03/01/17 03:48 Lab Results: I have reviewed the past 24 hour labs - Diagnostic Findings Procedure: Chest x-ray: image reviewed by me (Yesterday's chest x-ray looks essentially clear) Assessment and Plan (1) Diabetes mellitus Status: Chronic Assessment and plan: Blood sugar shown pretty good control on current regimen. 02/27/2017 blood sugars look good. 02/28/2017 blood sugars controlled. Current Visit: Yes (2) COPD (chronic obstructive pulmonary disease) Status: Chronic Assessment and plan: No active bronchospasm. Continuing bronchodilators. 02/27/2017 continuing bronchodilators along with antibiotics. Will reduce prednisone further. To recheck x-ray tomorrow. 02/28/2017 no bronchospasm. Stop prednisone. 03/01/2017 doing well off prednisone. Probably would do well with an inhaler such as Anoro. Current Visit: Yes (3) Sleep disorder Status: Chronic Assessment and plan: CPAP at night. Current Visit: Yes (4) MRSA pneumonia Status: Acute Assessment and plan: Also grew Serratia. On appropriate antibiotics. 02/27/2017 also has Serratia and Klebsiella in addition to the MRSA. Needs a couple more days of IV antibiotics. Cleocin and Cipro cover the 3 organisms. 02/28/2017 actually multiple organisms. Needs another day of IV antibiotics and then should be discharged tomorrow. 03/01/17 multiple organisms. Oral Cleocin and Cipro for about 3 more days should suffice. Needs follow-up x-rays in a month or 6 weeks. Current Visit: Yes
[2017-03-01] MEDS: INSULIN REGULAR 100 UNIT/ML SUBCUT SCH ×2 (08:06→12:35)
[2017-03-01] MEDS: CIPROFLOXACIN INJ 400 MG in PREMIX 1 EACH IV SCH ×2 (08:46→08:53)
[2017-03-01] MEDS: INSULIN GLARGINE 100 UNIT/ML SUBCUT SCH (08:46)
[2017-03-01] MEDS: PANTOPRAZOLE 40 MG TABLET PO SCH (08:47)
[2017-03-01] MEDS: clonazePAM 0.5 MG TABLET PO PRN (08:47)
[2017-03-01] MEDS: LACTOBACILLUS ACIDOPHILUS/BULGARICUS CHEW TABLET PO SCH (08:47)
[2017-03-01] MEDS: ASPIRIN EC 81 MG TABLET PO SCH (08:47)
[2017-03-01] MEDS: amLODIPine 10 MG TABLET PO SCH (08:47)
[2017-03-01] MEDS: VALSARTAN 160 MG TABLET PO SCH (08:47)
[2017-03-01] MEDS: CARVEDILOL 25 MG TABLET PO SCH (08:47)
--- NOTE | 2017-03-01 10:52 | Discharge Summary ---
Hospital Course - Hospital Course Hospital Course: The patient was admitted to the hospital with pneumonia and exacerbation of asthma. The patient improved with IV antibiotics, inhaled beta agonist nebulized breathing therapies. The patient had pulmonary consultation with Dr. Howard. The patient had cardiology evaluation with Dr. Seymour. The patient's breathing has improved over a week's period of time is now ready for discharge home on oral antibiotics for follow-up with Dr. Morgan as outpatient as well as Dr. Casillas for pulmonary follow-up. On the date of discharge, the chest has minimal to moderate air trapping and minimal wheezing. Heart has regular rate and rhythm and abdomen is soft. Preparation of discharge documents, patient education, and coordination with other physicians required 32 minutes. - Time spent with patient Time with patient DS: Greater than 30 minutes Diagnosis - Discharge Diagnosis (1) Asthma with status asthmaticus Status: Chronic (2) Pneumonia Status: Resolved Discharge Plan - Discharge Data Disposition: Disch To Home/Self Care Condition at Discharge: Stable Discharge Diet: diabetic diet Activity: resume usual activities as tolerated - Discharge Medications New Valsartan [Diovan] 320 mg PO DAILY #90 tablet Atorvastatin [Lipitor] 20 mg PO BEDTIME #60 tablet Carvedilol [Coreg] 25 mg PO BID W/MEALS #100 tablet cloNIDine TAB [Catapres Tab] 0.1 mg PO BID #100 tablet QUEtiapine [SEROquel] 100 mg PO BEDTIME tablet Continue metFORMIN [Glucophage] 1,000 mg PO BID clonazePAM [Clonazepam] 0.5 mg PO BID PRN PRN Reason: Anxiety Pioglitazone HCl [Actos] 30 mg PO DAILY Aspirin EC Tab 81 mg PO DAILY amLODIPine [Norvasc] 10 mg PO DAILY Alfuzosin [Uroxatral] 10 mg PO BEDTIME Omeprazole [Prilosec] 20 mg PO DAILY Quetiapine Fumarate 100 mg PO BEDTIME Discontinued Metoprolol Succinate 25 mg PO BEDTIME glipiZIDE [Glipizide] 10 mg PO BID - Follow Up or Referral - Forms/Instructions Exam - Constitutional Vitals: Period Temp Pulse Resp BP Sys/Pierce Pulse Ox Last 24 Hr 97.4 F-98.2 F 53-76 15-22 140-168/63-87 90-100 Discharge Results Procedures and tests throughout hospitalization: Pending Orders 02/24/17 10:39 Blood Culture Routine Labs on day of discharge: Labs from last 24 hours 03/01/17 03/01/17 03/01/17 07:31 03:48 03:48 WBC 6.3 RBC 3.68 L Hgb 11.5 L Hct 35.2 L MCV 95.7 MCH 31 MCHC 32.7 RDW 12.7 Plt Count 173 MPV 12.8 H Neut % (Auto) 55.3 Lymph % (Auto) 27.8 [place] % (Auto) 11.3 Eos % (Auto) 4.1 Baso % (Auto) 0.2 Neut # (Auto) 3.5 Lymph # (Auto) 1.8 [place] # (Auto) 0.7 Eos # (Auto) 0.3 Baso # (Auto) 0.0 Immature Gran % 1.3 Nucleated RBC % 0.0 Immature Gran # 0.08 Nucleated RBCs # 0.00 Sodium 143 Potassium 3.7 Chloride 105 Carbon Dioxide 32 Anion Gap 9.7 BUN 14 Creatinine 1.00 GFR Calculation 123 BUN/Creatinine Ratio 14.00 Glucose 105 POC Glucose 120 H Calculated Osmolality 285.0 Calcium 8.1 L Magnesium 2.1 02/28/17 02/28/17 02/28/17 21:05 15:52 10:57 WBC RBC Hgb Hct MCV MCH MCHC RDW Plt Count MPV Neut % (Auto) Lymph % (Auto) [place] % (Auto) Eos % (Auto) Baso % (Auto) Neut # (Auto) Lymph # (Auto) [place] # (Auto) Eos # (Auto) Baso # (Auto) Immature Gran % Nucleated RBC % Immature Gran # Nucleated RBCs # Sodium Potassium Chloride Carbon Dioxide Anion Gap BUN Creatinine GFR Calculation BUN/Creatinine Ratio Glucose POC Glucose 228 H 102 241 H Calculated Osmolality Calcium Magnesium Preliminary micro results at discharge 02/24/17 10:39 Blood Culture - Preliminary Blood No growth at 3 days 02/24/17 10:39 Blood Culture - Preliminary Blood No growth at 3 days DS: Provider Date of admission: 02/19/17 10:54 Primary care physician: Earl Morgan MD Attending physician on admission: Ese Harrell MD Consults: 02/19/17 11:18 Consult to Physician [CONS] Routine Comment: Consulting Provider: Donald Arellano 02/19/17 13:11 Consult to Pastoral Services [CONS] Routine Comment: Pastoral Screen Source of Request: Family 02/20/17 14:50 Consult to Dietitian [CONS] Routine Reason for Dietitian: TF-Initiate/Manage 02/22/17 14:44 Consult to Pharmacy [CONS] Routine Reason for Pharmacy Consult: Dose/Manage Vancomycin 02/25/17 08:24 Consult to Physical Therapy [CONS] Routine Reason for Physical Therapy: Evaluate and Treat 02/26/17 10:15 Consult to Case Mgmt/Social Srvs [CONS] Routine Reason for Case Mgmt/Social Srvs: Home Health Consult Comment: physical therapy at home for dc Discharging clinician: Jesu Simons MD
[2017-03-01 11:30] VITALS: BP 159/72
== END 2017-03-01 13:20 | disposition home health service (06) | DRG 208 ==
LOC: EDUNIT# → N.ED 10:15 → N.EDINP 10:54 → SUATTDRO 10:54 → N.ICU 11:17 → N.TELES 02-24 17:14
PROVIDERS: ADMIT Pediatrics; ATTEND Internal Medicine